=== PATIENT | female | born 1945 | race Two or more races ===

== ENCOUNTER 2019-12-26 08:26 | Inpatient (IN) | payer MEDICARE, OTHER ==
--- NOTE | 2019-12-26 09:09 | PDOC ---
History of Present Illness - General Chief Complaint: Back Pain Stated Complaint: BACK PAIN Time Seen by Provider: 12/26/19 08:57 History Source: Patient - History of Present Illness Initial Comments: 12/26/19 09:36 79 y/o female HTN, HLD TIA, nephrolithiasis here with lower back pain. Pain and tingling L4 to feet x2 weeks -worsening over the last; pain is 10/10 Evaluated @ [facility] earlier this week with imaging and discharged with PO Prednisone. Presents to our ED b/c continues to have pain. Denies any recent trauma, instrumentation, fevers/chills, bowel or bladder incontinence, chest pain, shortness of breath, abdominal pain, nausea/vomiting. Past History - Past Medical History Allergies/Adverse Reactions: Allergies Allergy/AdvReac Type Severity Reaction Status Date / Time No Known Allergies Allergy Verified 12/26/19 08:30 COPD: No HTN: Yes Hypercholesterolemia: Yes - Psycho Social/Smoking Cessation Hx Smoking History: Never smoked Have you smoked in the past 12 months: No Information on smoking cessation initiated: No Hx Alcohol Use: No Drug/Substance Use Hx: No Review of Systems - Review of Systems Constitutional: No: Chills, Fever HEENTM: No: Blurred Vision, Hearing Loss Respiratory: No: Cough, Shortness of Breath Cardiac (ROS): No: Chest Pain, Palpitations ABD/GI: No: Constipated, Diarrhea, Nausea, Vomiting : No: Burning, Dysuria *Physical Exam - Vital Signs Last Vital Signs Temp Pulse Resp BP Pulse Ox 98 F 98 H 18 156/102 H 100 12/26/19 08:31 12/26/19 08:31 12/26/19 08:31 12/26/19 08:31 12/26/19 08:31 - Physical Exam 12/26/19 10:18 Triage VS reviewed NAD MSK: L paraspinal TTP in L4-gluteal region; no midline spinal TTP, LLE w/intact sensation, normal strength, (+) patellar reflex : normal rectal tone CV: S1, S2, RRR Respiratory: CLTA B/L, no wheeze/crackles Neuro: A&O x3, CN II-XII intact ED Treatment Course - LABORATORY CBC & Chemistry Diagram: 12/26/19 11:00 12/26/19 10:03 Medical Decision Making - Medical Decision Making 12/26/19 09:39 74 y/o female with back pain that radiates down her L leg No h/o recent trauma, instrumentation/dental procedures PE significant for intact DTR's, normal strength, sensation Clinical suspicion for radiculopathy/sciatica, clinical presentation not suggestive of cauda equina, epidural abscess. Will give Tylenol, Valium. Reassess. 12/26/19 14:23 UA clean Labs unremarkable Patient reassessed @ bedside, pain improved, however continues to have difficulty ambulating - patient requires admission for MRI. 12/26/19 14:46 Case d/w Dr. Elam (admits for patient's PMD Dr. Casey Richardson). Will admit. Clinical Impression: Intractable Back Pain Discharge - Discharge Information Problems reviewed: Yes Clinical Impression/Diagnosis: Back pain Condition: Fair Disposition: HOME - Admission Yes - Follow up/Referral - Patient Discharge Instructions - Post Discharge Activity
[2019-12-26] MEDS ORDERED: diazePAM 2 MG TABLET PO ONE (10:03)
[2019-12-26] MEDS ORDERED: ACETAMINOPHEN 1000 MG/100 ML VIAL (NON FORMULARY) IVPB ONE (10:03)
[2019-12-26] MEDS ORDERED: diazePAM 2 MG TABLET ONE (10:46)
[2019-12-26] MEDS ORDERED: ACETAMINOPHEN INJECTION 100 ML IVPB ONE (10:47)
[2019-12-26 11:47] LABS: BASO % 0.9 % (0-2.0); EOS % 1.5 % (0-4.5); HEMATOCRIT 33.5 % (32.4-45.2); HEMOGLOBIN 11.2 GM/dL (10.7-15.3); LYMPH % 18.1 % (8-40); MCH 32.1 pg (25.7-33.7); MCHC 33.6 g/dl (32.0-36.0); MEAN CELL VOLUME 95.6 fl (80-96); MEAN PLT VOLUME 7.4 fl (7.5-11.1); MONO % 7.9 % (3.8-10.2); NEUT % 71.6 % (42.8-82.8); PLATELET COUNT 328 K/MM3 (134-434); RDW 14.8 % (11.6-15.6); WHITE BLOOD COUNT 9.6 K/mm3 (4.0-10.0)
[2019-12-26 12:21] LABS: ALBUMIN 3.6 g/dl (3.4-5.0); BILIRUBIN,TOTAL 0.9 mg/dL (0.2-1); BLOOD UREA NITROGEN 11.8 mg/dL (7-18); CALCIUM 9.2 mg/dL (8.5-10.1); CREATININE 0.7 mg/dL (0.55-1.3); POTASSIUM 4.1 mmol/L (3.5-5.1); TOT PROT 7.3 g/dl (6.4-8.2)
[2019-12-26] MEDS ORDERED: morphine CARPU-JECT 4 MG/1 ML DISP.SYRIN IVPUSH ONE (13:04)
[2019-12-26] MEDS ORDERED: morphine SULFATE 4 MG/ML VIAL ONE (13:26)
[2019-12-26 13:37] LABS: URINE APPEARANCE CLEAR; URINE BILIRUBIN NEGATIVE (NEGATIVE); URINE COLOR YELLOW; URINE GLUCOSE (UA) NEGATIVE (NEGATIVE); URINE KETONE NEGATIVE (NEGATIVE); URINE LEUK ESTERASE NEGATIVE (NEGATIVE); URINE NITRITE NEGATIVE (NEGATIVE); URINE PROTEIN NEGATIVE (NEGATIVE); URINE UROBILINOGEN 0.2 mg/dL (0.2-1.0)
--- NOTE | 2019-12-26 13:51 | PDOC ---
Documentation entered by Gabi Chamberlain SCRIBE, acting as scribe for Cornell Epps MD. Cornell Epps MD: This documentation has been prepared by the Cintia mark Xhesika, SCRIBE, under my direction and personally reviewed by me in its entirety. I confirm that the documentation accurately reflects all work, treatment, procedures, and medical decision making performed by me. Attending Attestation - Resident Resident Name: Dolores Tucker - ED Attending Attestation I have performed the following: I have examined & evaluated the patient, The case was reviewed & discussed with the resident, I agree w/resident's findings & plan, Exceptions are as noted - HPI HPI: 12/26/19 10:00 The patient is a 74 year old female, with a PMH of HTN, TIA x2, HLD, and nephrolithiasis who presents to the ED for 2 weeks of pain and tingling from L4 region to her feet, which worsened 4 days ago. Pt was seen at [facility] 2 days ago, had imaging and prescribed Prednisone with no relief of symptoms. The patient denies chest pain, shortness of breath, and dizziness. Denies fever , chills, cough, nausea, vomiting, and constipation. Denies dysuria, frequency, urgency and hematuria. Allergy: NKDA Social: Denies alcohol, cigarette or drug use. - Physicial Exam PE: 12/26/19 10:02 Vitals: Triage Vital signs reviewed General Appearance: no acute distress, well nourished well developed, Neck: Supple;No Nuchal rigidity Chest Wall: Nontender Cardiac: Regular rate and rhythm, no murmurs, no rubs, no gallops, Lungs: Clear to auscultation bilateral, good air movement bilaterally, Back: + reproducible L lower back pain radiating to leg. Normal strength. Normal sensation. Abdomen: Soft, nondistended, normal bowel sounds, nontender to palpation Extremities: Full range of motion to all extremities, no cyanosis, clubbing, or edema Musculoskeletal: Moderate to severe left reproducible buttock low back pain radiating down to left leg Skin: Warm and dry, no rashes or lesions, no petechiae Neuro: AOX3; Cranial Nerves 2-12 grossly c intact, Strength intact to all extremities, Sensation intact to all extremities Psych: normal mood, normal affect - Medical Decision Making 12/26/19 13:52 Multiple doses of IV medication used for radicular left-sided back discomfort radiating down back leg no weakness no numbness normal rectal tone normal neurologic examination previous imaging recently at [facility] Despite multiple rounds of IV medications patient cannot ambulate not a safe discharge home will admit to medicine for pain management and further evaluation.
--- NOTE | 2019-12-26 17:01 | CONSULT ---
Consult Consult Specialty:: Interventional spine/pain management Reason for Consultation:: Left Lumbar radiculopathy - History of Present Illness Chief Complaint: Low back and left leg pain History of Present Illness: Patient states for the past 2 weeks she has been having left low back and leg pain described as numbness tingling and burning radiating down to the toes from the low back. She has seen in the ED at both [facility] and at [facility]. At [place] she was there 2-3 times. She states that she had imaging but does not recall an MRI. She states that she was given medication. She was provided with a Medrol Dosepak however after seeing the Medrol Dosepak she had been taking it backwards starting with 1 pill and increasing the tablets. This is likely why she did not benefit from this treatment. Pain is rated 10 out of 10. Patient endorses difficulty with ambulation. She denies any bowel bladder incontinence. - History Source History Provided By: Patient - Alcohol/Substance Use Hx Alcohol Use: No - Smoking History Smoking history: Never smoked Have you smoked in the past 12 months: No Home Medications - Allergies Allergies/Adverse Reactions: Allergies Allergy/AdvReac Type Severity Reaction Status Date / Time No Known Allergies Allergy Verified 12/26/19 08:30 Review of Systems Findings/Remarks: Denies red flag sign such as bowel bladder incontinence and saddle anesthesia Physical Exam Vital Signs: Vital Signs Temperature 98.1 F 12/26/19 15:22 Pulse Rate 97 H 12/26/19 15:22 Respiratory Rate 18 12/26/19 15:22 Blood Pressure 140/90 12/26/19 15:22 O2 Sat by Pulse Oximetry (%) 98 12/26/19 15:22 Constitutional: Yes: Well Nourished, No Distress, Calm Eyes: Yes: Conjunctiva Clear HENT: Yes: Atraumatic, Normocephalic Neck: Yes: WNL Cardiovascular: Yes: Regular Rate and Rhythm Respiratory: Yes: Regular Gastrointestinal: Yes: Other (Soft) Musculoskeletal: Yes: Other (Patient lying in bed Right Strength Hip flexors: 5 Hip extensors: 5 Quadriceps: 5 Hamstrings: 5 Dorsiflexors: 5 EHL: 5 Plantar flexors: 5 Left Strength Hip flexors: 5 Hip extensors: 5 Quadriceps: 5 Hamstrings: 5 Dorsiflexors: 5 EHL: 5 Plantar flexors: 5 Right Reflex Quads: 2+ Gasroc: 2+ Left Reflex Quads: 2+ Gastroc: 2+ Right Signs SLR: Negative Left Signs SLR: postive Lumbar Right Light Touch Normal Lumbar Left Light Touch Lumbar normal) Labs: CBC, BMP 12/26/19 11:00 12/26/19 10:03 Assessment/Plan The patient's pain is likely secondary to left lumbar radiculopathy. Pain management recommendations: 1. Medrol Dosepak. 2 start gabapentin 100 mg 3 times per day. Monitor for sedation. 3. May start Tylenol 1000 mg twice daily. 4. Do not recommend narcotics for radicular pain. 5. We will follow-up with MRI on Sunday. If patient demonstrates pathology corresponding with her current symptoms she would likely benefit from a left lumbar transforaminal epidural steroid injection to be decided once imaging is reviewed. 6. If patient is a candidate for transforaminal dural steroid injection I would be performing interventional spine procedures on Sunday. If patient still in the hospital would recommend injection at that point in time or to return to the hospital as an outpatient. 7. Patient would benefit from a physical therapy evaluation. 8. Once patient is discharged she can follow-up as an outpatient at [address] she can call [phone] for an appointment with Dr. Wright.
[2019-12-26 17:34] VITALS: BMI 30.4
[2019-12-26] MEDS: LIDOCAINE 5% TOPICAL PATCH TP SCH (18:30)
[2019-12-26] MEDS: KETOROLAC TROMETHAMINE 30 MG/1 ML VIAL IVPUSH PRN (18:30)
--- NOTE | 2019-12-26 19:50 | HP ---
Admitting History and Physical - Smoking History Smoking history: Never smoked Have you smoked in the past 12 months: No If you are a former smoker, when did you quit?: 53 yrs ago - Alcohol/Substance Use Hx Alcohol Use: No Home Medications - Allergies Allergies/Adverse Reactions: Allergies Allergy/AdvReac Type Severity Reaction Status Date / Time No Known Allergies Allergy Verified 12/26/19 08:30 - Home Medications Home Medications: Ambulatory Orders Atorvastatin Ca [Lipitor] 20 mg PO HS 12/26/19 Cyclobenzaprine HCl [Flexeril -] 10 mg PO TID 12/26/19 Gabapentin [Neurontin -] 300 mg PO Q8H 12/26/19 Hydrochlorothiazide [Hctz -] 25 mg PO DAILY 12/26/19 Losartan Potassium 100 mg PO DAILY 12/26/19 Methylprednisolone [Medrol Dose [place]] 4 mg PO ASDIR 12/26/19 Naproxen 375 mg PO BID 12/26/19 Pramipexole Dihydrochloride [Mirapex -] 0.25 mg PO DAILY 12/26/19 Physical Examination Vital Signs: Vital Signs Temperature 97.9 F 12/26/19 17:29 Pulse Rate 99 H 12/26/19 17:29 Respiratory Rate 20 12/26/19 17:29 Blood Pressure 152/98 12/26/19 17:29 O2 Sat by Pulse Oximetry (%) 98 12/26/19 17:14 Labs: CBC, BMP 12/26/19 11:00 12/26/19 10:03
[2019-12-26] MEDS ORDERED: PNEUMOC 13-VAL CONJ-DIP CRM/PF 0.5 ML DISP.SYRIN IM ONE (20:00)
[2019-12-26] MEDS ORDERED: FLU VACCINE QUAD 60 MCG/0.5 ML (MDV 19-20) IM ONE (20:00)
[2019-12-26] MEDS: ATORVASTATIN CA 20 MG TABLET (FP) PO SCH (21:06)
[2019-12-26] MEDS: GABAPENTIN 300 MG CAPSULE PO SCH (21:06)
[2019-12-26] MEDS: HEPARIN NA (PORCINE) 5,000 UNITS/ML 1ML VIAL SQ SCH (21:06)
[2019-12-26] MEDS: LIDOCAINE PATCH REMOVAL MC SCH (21:09)
[2019-12-27] MEDS: GABAPENTIN 300 MG CAPSULE PO SCH ×3 (06:19→22:04)
[2019-12-27 08:15] LABS: BASO % 0.9 % (0-2.0); EOS % 5.2 % (0-4.5); HEMATOCRIT 34.1 % (32.4-45.2); HEMOGLOBIN 11.7 GM/dL (10.7-15.3); LYMPH % 25.2 % (8-40); MCH 32.9 pg (25.7-33.7); MCHC 34.2 g/dl (32.0-36.0); MEAN PLT VOLUME 7.1 fl (7.5-11.1); MONO % 9.2 % (3.8-10.2); NEUT % 59.5 % (42.8-82.8); PLATELET COUNT 336 K/MM3 (134-434); RBC 3.55 M/mm3 (3.60-5.2); RDW 15.1 % (11.6-15.6); WHITE BLOOD COUNT 6.7 K/mm3 (4.0-10.0)
[2019-12-27 09:00] LABS: ALBUMIN 3.4 g/dl (3.4-5.0); BILIRUBIN,TOTAL 0.7 mg/dL (0.2-1); BLOOD UREA NITROGEN 17.2 mg/dL (7-18); CALCIUM 9.6 mg/dL (8.5-10.1); CREATININE 0.8 mg/dL (0.55-1.3); POTASSIUM 3.9 mmol/L (3.5-5.1); TOT PROT 6.7 g/dl (6.4-8.2)
[2019-12-27] MEDS: KETOROLAC TROMETHAMINE 30 MG/1 ML VIAL IVPUSH PRN ×2 (09:03→15:49)
[2019-12-27] MEDS ORDERED: PT OWN MED DRAWER 7, Y5N ONE (13:09)
[2019-12-27] MEDS: HYDROCHLOROTHIAZIDE 25 MG TABLET (FP) PO SCH (13:15)
[2019-12-27] MEDS: HEPARIN NA (PORCINE) 5,000 UNITS/ML 1ML VIAL SQ SCH ×2 (13:15→22:04)
[2019-12-27] MEDS: LOSARTAN POTASSIUM 50 MG TABLET (FP) PO SCH (13:15)
[2019-12-27] MEDS: LIDOCAINE 5% TOPICAL PATCH TP SCH (13:15)
[2019-12-27] MEDS: PRAMIPEXOLE DIHYDROCHLORIDE 0.25 MG TABLET PO SCH (13:16)
[2019-12-27] MEDS ORDERED: oxyCODONE HCL 5 MG TABLET PO ONE (14:15)
--- NOTE | 2019-12-27 17:11 | PN ---
Progress Note, Physician History of Present Illness: DOING WELL - Current Medication List Current Medications: Active Medications Atorvastatin Calcium (Lipitor -) 20 mg PO HS [facility] Last Admin: 12/26/19 21:06 Dose: 20 mg Gabapentin (Neurontin -) 300 mg PO TID [facility] Last Admin: 12/27/19 13:15 Dose: 300 mg Heparin Sodium (Porcine) (Heparin -) 5,000 unit SQ BID [facility] Last Admin: 12/27/19 13:15 Dose: 5,000 unit Hydrochlorothiazide (Hctz -) 25 mg PO DAILY [facility] Last Admin: 12/27/19 13:15 Dose: 25 mg Ketorolac Tromethamine (Toradol Injection -) 30 mg IVPUSH Q6H PRN PRN Reason: PAIN LEVEL 6-10 Stop: 12/31/19 14:35 Last Admin: 12/27/19 15:49 Dose: 30 mg Lidocaine (Lidoderm Patch -) 1 patch TP DAILY [facility] Last Admin: 12/27/19 13:15 Dose: 1 patch Losartan Potassium (Cozaar -) 100 mg PO DAILY [facility] Last Admin: 12/27/19 13:15 Dose: 100 mg Miscellaneous (Lidoderm Patch Removal) 1 each MC DAILY@2200 [facility] Last Admin: 12/26/19 21:09 Dose: Not Given Pramipexole Dihydrochloride (Mirapex -) 0.25 mg PO DAILY [facility] Last Admin: 12/27/19 13:16 Dose: 0.25 mg - Objective Vital Signs: Vital Signs Temperature 97.8 F 12/27/19 13:00 Pulse Rate 100 H 12/27/19 13:00 Respiratory Rate 18 12/27/19 13:00 Blood Pressure 104/58 L 12/27/19 13:00 O2 Sat by Pulse Oximetry (%) 98 12/26/19 20:42 Constitutional: Yes: No Distress HENT: Yes: Atraumatic Neck: Yes: Supple Cardiovascular: Yes: Regular Rate and Rhythm Respiratory: Yes: CTA Bilaterally Gastrointestinal: Yes: Normal Bowel Sounds Extremities: Yes: WNL Edema: No Neurological: Yes: Alert, Oriented Labs: CBC, BMP 12/27/19 07:40 12/27/19 07:40 Problem List - Problems (1) Back pain Assessment/Plan: will start her on morphine current pain meds doesnt work dc toradol Code(s): M54.9 - DORSALGIA, UNSPECIFIED (2) HTN (hypertension) Assessment/Plan: ON MEDS MONITOR Code(s): I10 - ESSENTIAL (PRIMARY) HYPERTENSION (3) HLD (hyperlipidemia) Code(s): E78.5 - HYPERLIPIDEMIA, UNSPECIFIED Assessment/Plan COVERING FOR DR LAUREN
[2019-12-27] MEDS: MORPHINE SULFATE 2 MG/ML VIAL IVPUSH PRN (19:37)
[2019-12-27] MEDS: ATORVASTATIN CA 20 MG TABLET (FP) PO SCH (22:04)
[2019-12-27] MEDS: LIDOCAINE PATCH REMOVAL MC SCH (22:04)
[2019-12-28] MEDS: MORPHINE SULFATE 2 MG/ML VIAL IVPUSH PRN ×3 (01:28→17:34)
[2019-12-28] MEDS ORDERED: SODIUM CHLORIDE 250 ML IV ONE (03:15)
[2019-12-28] MEDS: DEXTROSE 5%-0.45% SALINE 1,000 ML IV SCH ×2 (03:16→17:37)
[2019-12-28] MEDS: GABAPENTIN 300 MG CAPSULE PO SCH ×3 (06:25→21:04)
[2019-12-28] MEDS ORDERED: PT OWN MED DRAWER 7, Y5N ONE (09:26)
--- NOTE | 2019-12-28 09:56 | CON.NEURO ---
Consult Consult Specialty:: Neurology Referred by:: LBP - History of Present Illness Chief Complaint: LBP History of Present Illness: 74 Y/O F , p/w LBP and L LE pain for the past 7 days ; she states that woke up w LBP , does not recall any triggering factors such as lifting heavy objects ; trauma etc; she describes a sharp pain from her L lower back which travels down ; no rectal numbness, no B/B incontinence ; feels numb distal L knee . - History Source History Provided By: Patient Limitations to Obtaining History: No Limitations - Alcohol/Substance Use Hx Alcohol Use: No - Smoking History Smoking history: Never smoked Have you smoked in the past 12 months: No If you are a former smoker, when did you quit?: 53 yrs ago Home Medications - Allergies Allergies/Adverse Reactions: Allergies Allergy/AdvReac Type Severity Reaction Status Date / Time No Known Allergies Allergy Verified 12/26/19 08:30 - Home Medications Home Medications: Ambulatory Orders Atorvastatin Ca [Lipitor] 20 mg PO HS 12/26/19 Cyclobenzaprine HCl [Flexeril -] 10 mg PO TID 12/26/19 Gabapentin [Neurontin -] 300 mg PO Q8H 12/26/19 Hydrochlorothiazide [Hctz -] 25 mg PO DAILY 12/26/19 Losartan Potassium 100 mg PO DAILY 12/26/19 Methylprednisolone [Medrol Dose [place]] 4 mg PO ASDIR 12/26/19 Naproxen 375 mg PO BID 12/26/19 Pramipexole Dihydrochloride [Mirapex -] 0.25 mg PO DAILY 12/26/19 Review of Systems - Review of Systems Constitutional: reports: No Symptoms Eyes: reports: No Symptoms HENT: reports: No Symptoms Neck: reports: No Symptoms Cardiovascular: reports: No Symptoms Respiratory: reports: No Symptoms Gastrointestinal: reports: No Symptoms Genitourinary: reports: No Symptoms Endocrine: reports: No Symptoms Hematology/Lymphatic: reports: No Symptoms Psychiatric: reports: No Symptoms Physical Exam-Neuro Vital Signs: Vital Signs Temperature 97.7 F 12/28/19 05:00 Pulse Rate 83 12/28/19 05:00 Respiratory Rate 18 12/28/19 05:00 Blood Pressure 95/55 L 12/28/19 05:00 O2 Sat by Pulse Oximetry (%) 94 L 12/27/19 21:00 Constitutional: Yes: Well Nourished Neck: Yes: WNL Cardiovascular: Yes: Regular Rate and Rhythm Respiratory: Yes: Regular, CTA Bilaterally Musculoskeletal: Yes: Back Pain, Other (SLR positive at L side ) Edema: No Labs: CBC, BMP 12/27/19 07:40 12/27/19 07:40 - Neuro Exam Level Of Consciousness: Yes: Alert, Oriented to Person, Oriented to Place, Oriented to Time Eyes: Yes: PERRLA Speech: WNL Cranial Nerves II-XII Intact: Yes Gag: Present DTR's: 1+ Left Achilles (Absence L KJ ), 2+ Left Bicep, 2+ Right Bicep, 2+ Left Tricep, 2+ Right Tricep, 2+ Left Brachioradialis, 2+ Right Brachioradialis, 2+ Right Achilles Response to pain prick: Abnormal (l l4/l5 distribution ) Coordination: Normal: Finger to Nose Motor Strength: 3/5: Left Leg, 5/5: Left Arm, Right Arm, Right Leg Gait: Deferred Imaging - Results MRI: Image Reviewed (Pending MRI-LS report) Problem List - Problems (1) Lumbosacral radiculopathy at L4 Code(s): M54.17 - RADICULOPATHY, LUMBOSACRAL REGION (2) Lumbosacral radiculopathy at L5 Code(s): M54.17 - RADICULOPATHY, LUMBOSACRAL REGION (3) Back pain Code(s): M54.9 - DORSALGIA, UNSPECIFIED Assessment/Plan 74 y/o F , p/w L lower back pain w radiation to her L LE and numbness distal L knee ; on exam L L4/L5 dermatome sensory loss ; absent L KJ and diminished L AJ , +sisi L SLR suggestive of L L4/L5 LS-radiculopathy vs sciatica , ; no sign or sym suggestive of cauda equina syndrome, no bowel or bladder incontinence .MRI -LS report pending. I suggest: Tramadol as needed for pain c/w steroid Increase gabapentin 300 mg qid c/w flexeril Neuro sx consultation EMG as OP Fall precautions PT/OT Health maintenance per primary team. Thank you. Karri Nichols MD [phone]
[2019-12-28] MEDS: PRAMIPEXOLE DIHYDROCHLORIDE 0.25 MG TABLET PO SCH (10:47)
[2019-12-28] MEDS: LIDOCAINE 5% TOPICAL PATCH TP SCH (10:47)
[2019-12-28] MEDS: HEPARIN NA (PORCINE) 5,000 UNITS/ML 1ML VIAL SQ SCH ×2 (10:53→21:04)
[2019-12-28] MEDS: ATORVASTATIN CA 20 MG TABLET (FP) PO SCH (21:04)
[2019-12-28] MEDS: LIDOCAINE PATCH REMOVAL MC SCH (21:04)
--- NOTE | 2019-12-28 22:23 | PN ---
Progress Note, Physician History of Present Illness: Pt still complains of lower back pain w/ tingling down RLE - Current Medication List Current Medications: Active Medications Atorvastatin Calcium (Lipitor -) 20 mg PO HS [facility] Last Admin: 12/28/19 21:04 Dose: 20 mg Gabapentin (Neurontin -) 300 mg PO TID [facility] Last Admin: 12/28/19 21:04 Dose: 300 mg Heparin Sodium (Porcine) (Heparin -) 5,000 unit SQ BID [facility] Last Admin: 12/28/19 21:04 Dose: 5,000 unit Hydrochlorothiazide (Hctz -) 25 mg PO DAILY [facility] Last Admin: 12/27/19 13:15 Dose: 25 mg Dextrose/Sodium Chloride (D5-1/2ns -) 1,000 mls @ 75 mls/hr IV ASDIR [facility] Last Admin: 12/28/19 17:37 Dose: 75 mls/hr Lidocaine (Lidoderm Patch -) 1 patch TP DAILY [facility] Last Admin: 12/28/19 10:47 Dose: 1 patch Losartan Potassium (Cozaar -) 100 mg PO DAILY [facility] Last Admin: 12/27/19 13:15 Dose: 100 mg Miscellaneous (Lidoderm Patch Removal) 1 each MC DAILY@2200 [facility] Last Admin: 12/28/19 21:04 Dose: Not Given Morphine Sulfate (Morphine Sulfate) 2 mg IVPUSH Q4H PRN PRN Reason: PAIN LEVEL 6-10 Last Admin: 12/28/19 17:34 Dose: 2 mg Pramipexole Dihydrochloride (Mirapex -) 0.25 mg PO DAILY [facility] Last Admin: 12/28/19 10:47 Dose: 0.25 mg - Objective Vital Signs: Vital Signs Temperature 98.3 F 12/28/19 19:27 Pulse Rate 90 12/28/19 19:27 Respiratory Rate 20 12/28/19 21:00 Blood Pressure 118/69 12/28/19 19:27 O2 Sat by Pulse Oximetry (%) 96 12/28/19 21:00 Neck: Yes: WNL, Supple Cardiovascular: Yes: WNL, Regular Rate and Rhythm Respiratory: Yes: WNL, Regular, CTA Bilaterally Gastrointestinal: Yes: WNL, Normal Bowel Sounds, Soft, Abdomen, Obese Extremities: Yes: WNL Labs: CBC, BMP 12/27/19 07:40 12/27/19 07:40 Problem List - Problems (1) Intractable back pain Assessment/Plan: MRI shows disc bulging w/ S1 nerve root involvement Neuro consult noted Pain management pending NSG consult Increase gabapentin Cont flexeril/lidoderm patch Add tramadol PT eval Code(s): M54.9 - DORSALGIA, UNSPECIFIED (2) HTN (hypertension) Assessment/Plan: Losartan/Hctz on hold due to hypotension Will restart meds Code(s): I10 - ESSENTIAL (PRIMARY) HYPERTENSION (3) HLD (hyperlipidemia) Assessment/Plan: Cont lipitor Code(s): E78.5 - HYPERLIPIDEMIA, UNSPECIFIED
[2019-12-29] MEDS: traMADol HCL 50 MG TABLET PO PRN ×2 (06:03→15:54)
[2019-12-29 07:10] LABS: EOS % 8.7 % (0-4.5); HEMATOCRIT 33.4 % (32.4-45.2); HEMOGLOBIN 11.2 GM/dL (10.7-15.3); LYMPH % 27.5 % (8-40); MCH 32.6 pg (25.7-33.7); MCHC 33.5 g/dl (32.0-36.0); MEAN CELL VOLUME 97.3 fl (80-96); MEAN PLT VOLUME 7.3 fl (7.5-11.1); MONO % 8.8 % (3.8-10.2); PLATELET COUNT 326 K/MM3 (134-434); RBC 3.43 M/mm3 (3.60-5.2); RDW 14.6 % (11.6-15.6); WHITE BLOOD COUNT 6.4 K/mm3 (4.0-10.0)
[2019-12-29 07:46] LABS: ALBUMIN 2.9 g/dl (3.4-5.0); BILIRUBIN,TOTAL 0.6 mg/dL (0.2-1); BLOOD UREA NITROGEN 17.7 mg/dL (7-18); CALCIUM 8.5 mg/dL (8.5-10.1); CREATININE 0.8 mg/dL (0.55-1.3); POTASSIUM 3.8 mmol/L (3.5-5.1); TOT PROT 6.2 g/dl (6.4-8.2)
[2019-12-29] MEDS ORDERED: PT OWN MED DRAWER 7, Y5N ONE ×3 (09:05→20:28)
[2019-12-29] MEDS: LIDOCAINE 5% TOPICAL PATCH TP SCH (09:09)
[2019-12-29] MEDS: HEPARIN NA (PORCINE) 5,000 UNITS/ML 1ML VIAL SQ SCH ×2 (09:09→21:04)
[2019-12-29] MEDS: GABAPENTIN 300 MG CAPSULE PO SCH ×4 (09:09→21:05)
[2019-12-29] MEDS: NAPROXEN 500 MG TABLET PO SCH ×2 (09:10→21:45)
[2019-12-29] MEDS: PRAMIPEXOLE DIHYDROCHLORIDE 0.25 MG TABLET PO SCH (10:52)
[2019-12-29] MEDS: LOSARTAN POTASSIUM 50 MG TABLET (FP) PO SCH (10:52)
[2019-12-29] MEDS: HYDROCHLOROTHIAZIDE 25 MG TABLET (FP) PO SCH (10:52)
--- NOTE | 2019-12-29 19:22 | PN ---
Progress Note, Physician - Current Medication List Current Medications: Active Medications Atorvastatin Calcium (Lipitor -) 20 mg PO HS [facility] Last Admin: 12/28/19 21:04 Dose: 20 mg Gabapentin (Neurontin -) 300 mg PO QID [facility] Last Admin: 12/29/19 17:53 Dose: 300 mg Heparin Sodium (Porcine) (Heparin -) 5,000 unit SQ BID [facility] Last Admin: 12/29/19 09:09 Dose: 5,000 unit Hydrochlorothiazide (Hctz -) 25 mg PO DAILY [facility] Last Admin: 12/29/19 10:52 Dose: 25 mg Lidocaine (Lidoderm Patch -) 1 patch TP DAILY [facility] Last Admin: 12/29/19 09:09 Dose: 1 patch Losartan Potassium (Cozaar -) 100 mg PO DAILY [facility] Last Admin: 12/29/19 10:52 Dose: 100 mg Miscellaneous (Lidoderm Patch Removal) 1 each MC DAILY@2200 [facility] Last Admin: 12/28/19 21:04 Dose: Not Given Naproxen (Naprosyn -) 500 mg PO BID [facility] Last Admin: 12/29/19 09:10 Dose: 500 mg Pramipexole Dihydrochloride (Mirapex -) 0.25 mg PO DAILY [facility] Last Admin: 12/29/19 10:52 Dose: 0.25 mg Tramadol HCl (Ultram -) 50 mg PO Q6H PRN PRN Reason: PAIN LEVEL 6-10 Last Admin: 12/29/19 15:54 Dose: 50 mg - Objective Vital Signs: Vital Signs Temperature 97.7 F 12/29/19 17:54 Pulse Rate 86 12/29/19 17:54 Respiratory Rate 20 12/29/19 17:54 Blood Pressure 143/75 12/29/19 17:54 O2 Sat by Pulse Oximetry (%) 96 12/29/19 09:00 Labs: CBC, BMP 12/29/19 05:53 12/29/19 05:53 Problem List - Problems (1) Intractable back pain Code(s): M54.9 - DORSALGIA, UNSPECIFIED (2) HTN (hypertension) Code(s): I10 - ESSENTIAL (PRIMARY) HYPERTENSION (3) HLD (hyperlipidemia) Code(s): E78.5 - HYPERLIPIDEMIA, UNSPECIFIED
[2019-12-29] MEDS: ATORVASTATIN CA 20 MG TABLET (FP) PO SCH (21:05)
[2019-12-29] MEDS: LIDOCAINE PATCH REMOVAL MC SCH (21:05)
[2019-12-29] MEDS ORDERED: MAGNESIUM CITRATE 300 ML BOTTLE PO ONE (22:15)
[2019-12-30] MEDS: traMADol HCL 50 MG TABLET PO PRN (07:56)
[2019-12-30] MEDS: HEPARIN NA (PORCINE) 5,000 UNITS/ML 1ML VIAL SQ SCH (09:52)
[2019-12-30] MEDS: GABAPENTIN 300 MG CAPSULE PO SCH ×2 (09:54→13:05)
[2019-12-30] MEDS: PRAMIPEXOLE DIHYDROCHLORIDE 0.25 MG TABLET PO SCH (09:55)
[2019-12-30] MEDS: NAPROXEN 500 MG TABLET PO SCH (09:55)
[2019-12-30] MEDS: LIDOCAINE 5% TOPICAL PATCH TP SCH (09:55)
[2019-12-30] MEDS: LOSARTAN POTASSIUM 50 MG TABLET (FP) PO SCH (09:56)
[2019-12-30] MEDS: HYDROCHLOROTHIAZIDE 25 MG TABLET (FP) PO SCH (09:56)
[2019-12-30 14:55] VITALS: BP 122/54; PULSE 92; TEMP 98.6
== END 2019-12-30 15:02 | disposition home or self-care (01) | DRG 552 ==
LOC: JER 08:26 → JERBED 13:22 → J8W 15:39
PROVIDERS: ADMIT Internal Medicine; ATTEND Internal Medicine
DX: M54.17 Radiculopathy, lumbosacral region (principal); I10 Essential (primary) hypertension; E78.5 Hyperlipidemia, unspecified; M54.9 Dorsalgia, unspecified; Z86.73 Personal history of transient ischemic attack (TIA), and cerebral infarction without residual deficits
CPT/HCPCS: 36415; 72148-TC; 80053; 81003; 85025; 97116-GP; 97161-GP; 99285-25; J0131; J1644

== ENCOUNTER 2020-07-23 05:27 | Day surgery (SDC) | payer OTHER ==
[2020-07-22 14:46] VITALS: BMI 33.5
--- OUTSIDE RECORDS SUMMARY | 2020-07-23 05:43 | XMS ---
:1945 Author Organization [facility] Care Team Providers Name Role Phone Ringstad, Laura Unavailable Unavailable Ringstad, Laura Unavailable Unavailable Ringstad, Laura Unavailable Unavailable Ringstad, Laura Unavailable Unavailable Ringstad, Laura Unavailable Unavailable Ringstad, Laura Unavailable Unavailable Ringstad, Laura Unavailable Unavailable Ringstad, Laura Unavailable Unavailable Ringstad, Laura Unavailable Unavailable Ringstad, Laura Unavailable Unavailable Ringstad, Laura Unavailable Unavailable ED STAFF PHYSICIANSOFIA Unavailable Unavailable Ringstad, Laura Unavailable Unavailable Ringstad, Laura Unavailable Unavailable Ringstad, Laura Unavailable Unavailable Ringstad, Laura Unavailable Unavailable Ringstad, Laura Unavailable Unavailable Ringstad, Laura Unavailable Unavailable Ringstad, Laura Unavailable Unavailable Ringstad, Laura Unavailable Unavailable Ringstad, Laura Unavailable Unavailable Ringstad, Laura Unavailable Unavailable Ringstad, Laura Unavailable Unavailable Darkey, Bailee Unavailable Unavailable Darkey, Bailee Unavailable Unavailable Darkey, Bailee Unavailable Unavailable Darkey, Bailee Unavailable Unavailable Abraham, Eric Unavailable [phone] Abraham, Eric Unavailable [phone] Coloka-Kump, Rodika DO Unavailable Unavailable Coloka-Kump, Rodika DO Unavailable Unavailable Coloka-Kump, Rodika DO Unavailable Unavailable Coloka-Kump, Rodika DO Unavailable Unavailable Coloka-Kump, Rodika DO Unavailable Unavailable Coloka-Kump, Rodika DO Unavailable Unavailable Coloka-Kump, Rodika DO Unavailable Unavailable Coloka-Kump, Rodika DO Unavailable Unavailable Coloka-Kump, Rodika DO Unavailable Unavailable Coloka-Kump, Rodika DO Unavailable Unavailable Coloka-Kump, Rodika DO Unavailable Unavailable Coloka-Kump, Rodika DO Unavailable Unavailable Coloka-Kump, Rodika DO Unavailable Unavailable Coloka-Kump, Rodika DO Unavailable Unavailable Coloka-Kump, Rodika DO Unavailable Unavailable Coloka-Kump, Rodika DO Unavailable Unavailable Coloka-Kump, Rodika DO Unavailable Unavailable MAYA MILEY, MILEY Unavailable Unavailable Esperanza Coates MD Unavailable Unavailable Rosamaria Coates MD Unavailable Unavailable Rosamaria Coates MD Unavailable Unavailable Rosamaria Coates MD Unavailable Unavailable Rosamaria Coates MD Unavailable Unavailable Rosamaria Coates MD Unavailable Unavailable Rosamaria Coates MD Unavailable Unavailable Rosamaria Coates MD Unavailable Unavailable Rosamaria Coates MD Unavailable Unavailable Rosamaria Coates MD Unavailable Unavailable Rosamaria Coates MD Unavailable Unavailable Rosamaria Coates MD Unavailable Unavailable Rosamaria Coates MD Unavailable Unavailable Rosamaria Coates MD Unavailable Unavailable Rosamaria Coates MD Unavailable Unavailable Jhonny Unavailable [phone] Jhonny Unavailable [phone] [place] Unavailable [phone] Senior Unavailable [phone] Senior Unavailable [phone] Neal Unavailable [phone] Squires, C Unavailable Unavailable Squires, C Unavailable Unavailable Squires, C Unavailable Unavailable Squires, C Unavailable Unavailable Squires, C Unavailable Unavailable Squires, C Unavailable Unavailable Squires, C Unavailable Unavailable Squires, C Unavailable Unavailable Squires, C Unavailable Unavailable Erosa Unavailable Erosa Unavailable ED STAFF PHYSICIAN Unavailable Unavailable DARKEY BAILEE Unavailable Unavailable ED STAFF PHYSICIAN Unavailable Unavailable Coloka-Kump, DO Unavailable Unavailable Coloka-Kump, DO Unavailable Unavailable Coloka-Kump, DO Unavailable Unavailable Coloka-Kump, DO Unavailable Unavailable Coloka-Kump, DO Unavailable Unavailable Coloka-Kump, DO Unavailable Unavailable Coloka-Kump, DO Unavailable Unavailable Coloka-Kump, DO Unavailable Unavailable Coloka-Kump, DO Unavailable Unavailable Coloka-Kump, DO Unavailable Unavailable Coloka-Kump, DO Unavailable Unavailable Coloka-Kump, DO Unavailable Unavailable Coloka-Kump, DO Unavailable Unavailable Coloka-Kump, DO Unavailable Unavailable Coloka-Kump, DO Unavailable Unavailable Coloka-Kump, DO Unavailable Unavailable Coloka-Kump, DO Unavailable Unavailable MD Michael Unavailable Unavailable MD Michael Unavailable Unavailable MD Michael Unavailable Unavailable MD Michael Unavailable Unavailable MD Michael Unavailable Unavailable NICOLA PEREZ Unavailable Unavailable Tao Unavailable Unavailable Tao Unavailable Unavailable Tao Unavailable Unavailable Tao Unavailable Unavailable Tao Unavailable Unavailable Tao Unavailable Unavailable Tao Unavailable Unavailable Tao Unavailable Unavailable Tao Unavailable Unavailable Tao Unavailable Unavailable Tao Unavailable Unavailable Tao Unavailable Unavailable Tao Unavailable Unavailable Tao Unavailable Unavailable Tao Unavailable Unavailable Tao Unavailable Unavailable Tao Unavailable Unavailable Tao Unavailable Unavailable Tao Unavailable Unavailable Tao Unavailable Unavailable Aszalos, Zenia Unavailable Unavailable Aszalos, Zenia Unavailable Unavailable Aszalos, Zenia Unavailable Unavailable Aszalos, Zenia Unavailable Unavailable Aszalos, Zenia Unavailable Unavailable Aszalos, Zenia Unavailable Unavailable Aszalos, Zenia Unavailable Unavailable Aszalos, Zenia Unavailable Unavailable Aszalos, Zenia Unavailable Unavailable Andres Unavailable [phone] Andres Unavailable [phone] Andres Unavailable [phone] Andres Unavailable [phone] Andres Unavailable [phone] KARRIE RAYMUNDO Unavailable Unavailable Tj COLBY MD Unavailable [phone] Tj COLBY MD Unavailable [phone] ANDRES NAYEL Unavailable Unavailable Posey-Lanza Unavailable Unavailable Posey-Lanza Unavailable Unavailable Safo-Alfie Unavailable [phone] Safo-Alfie Unavailable [phone] Re-disclosure Warning The records that you are about to access may contain information from federally- assisted alcohol or drug abuse programs. If such information is present, then the following federally mandated warning applies: This information has been disclosed to you from records protected by federal confidentiality rules (42 CFR part 2). The federal rules prohibit you from making any further disclosure of this information unless further disclosure is expressly permitted by the written consent of the person to whom it pertains or as otherwise permitted by 42 CFR part 2. A general authorization for the release of medical or other information is NOT sufficient for this purpose. The Federal rules restrict any use of the information to criminally investigate or prosecute any alcohol or drug abuse patient.The records that you are about to access may contain highly sensitive health information, the redisclosure of which is protected by Article 27-F of the [place] Public Health law. If you continue you may haveaccess to information: Regarding HIV / AIDS; Provided by facilities licensed or operated by the [facility] [employer] Office of Mental Health; or Provided by the [facility] [employer] Office for People With Developmental Disabilities. If such information is present, then the following [employer] mandated warning applies: This information has been disclosed to you from confidential records which are protected by state law. State law prohibits you from making any further disclosure of this information without the specific written consent of the person to whom it pertains, or as otherwise permitted by law. Any unauthorized further disclosure in violation of state law may result in a fine or detention sentence or both. A general authorization for the release of medical or other information is NOT sufficient authorization for further disclosure. Advance Directives Directive Description Welder Plasma Arc Superintendent Nonselling Status Observation Data Description Source(s ) Other completed NEXTGEN Directive ([facility]) IV Fluid and completed NEXTGEN Support ([facility]) Intubation completed NEXTGEN ([facility]) Life Support completed NEXTGEN ([facility]) CPR Attempt completed NEXTGEN Resuscitation/C ([facility]) Other completed NEXTGEN Directive ([facility]) IV Fluid and completed NEXTGEN Support ([facility]) Intubation completed NEXTGEN ([facility]) Life Support completed NEXTGEN ([facility]) CPR Attempt completed NEXTGEN Resuscitation/C ([facility]) Allergies and Adverse Reactions Type Description Substance Reaction Status Data Source(s ) Propensity to Propensity to Propensity to NEXTG EN ([facility] adverse reactions adverse reactions adverse reactions [facility] (disorder) (disorder) (disorder) Center) No Known Allergies No Known Allergies No Known eCW1 ([facility] Allerg[facility]) No Known Allergies No Known Allergies No Known eCW1 ([facility]) No Known Allergies No Known Allergies No Known eCW1 ([facility]) Family History Family Member Family Member Family Member Date of Description Data Source(s) Name Gender Status Status Unknown Female Problem 02/25/2018 NEXTGEN ([facility] ([facility]) 12:00:00 AM [facility] EDT Center) Encounters Encounter Providers Location Date Indications Data Source(s ) Attender: Jese 07/13/2020 MEDGEN ([facility] 12:00:00 AM EDT Medical, PC) Office Outpatient 06/30/2020 [facility] 01:59:00 PM EDT Medical C enter Outpatient 06/30/2020 [facility] 12:00:00 AM EDT Medical C enter [facility] 06/29/2020 NEXTGEN ([facility] 10:04:00 AM EDT [facility] 06/29/2020 [place]) 10:04:00 AM EDT Attender: [facility] 06/23/2020 NEXT GEN ([facility] 03:21:00 PM EDT - [facility] 06/23/2020 [place]) 03:21:00 PM EDT Attender: [facility] 06/21/2020 NEXT GEN ([facility] 02:55:00 PM EDT - [facility] 06/21/2020 [place]) 02:55:00 PM EDT Attender: [facility] 06/07/2020 NEXT GEN ([facility] 12:58:00 PM EDT - [facility] 06/07/2020 [place]) 12:58:00 PM EDT Attender: [facility] 06/01/2020 NEXTGE N ([facility] 11:34:00 AM EDT [facility] 06/01/2020 [place]) 11:34:00 AM EDT Attender: [facility] 05/26/2020 NEXT GEN ([facility] 03:33:00 PM EDT - [facility] 05/26/2020 [place]) 03:33:00 PM EDT Outpatient Attender: Gaby Oleary 05/24/2020 [facility] VelezAdmitter: 01:06:00 PM EDT Medic al Center Gaby TaoReferrer: Gaby Tao OutpatientOFFICE/O Attender: Ilana [facility] 05/24/2020 NEXTGEN ([facility] 01:06:00 PM EDT - [facility] 05/24/2020 [place]) 01:06:00 PM EDT Outpatient 05/24/2020 [facility] 10:00:00 AM EDT Medical C enter Attender: Esperanza [facility] 05/24/2020 NEXTGE N ([facility] 09:47:00 AM EDT [facility] 05/24/2020 [place]) 09:47:00 AM EDT Outpatient 05/24/2020 [facility] 12:00:00 AM EDT Medical C [facility] N ([facility] 02:57:00 PM EDT [facility] 05/13/2020 [place]) 02:57:00 PM EDT (TEL) [address] 05/03/2020 eCW1 ([facility] 12:00:00 AM EDT [facility]) Outpatient Attender: Gaby Oleary 04/28/2020 [facility] AislinnAdmitter: 11:42:00 AM EDT - [facility] Gaby 04/28/2020 VelezReferrer: 01:35:00 PM EDT Gaby Tao Attender: Gaby [facility]/28/2020 [facility] 11:42:00 AM EDT [facility] 04/28/2020 [place]) 11:42:00 AM EDT (TEL) [address] 04/27/2020 eCW1 ([facility] 12:00:00 AM EDT [facility]) Outpatient Attender: TITUS Oleary 04/26/2020 [facility] 03:14:00 PM EDT Medical [place] ZACKARYAdmitter: TITUS RAYMUNDOReferrer: TITUS RAYMUNDO Attender: Zeke 04/26/2020 NEXTGEN ( [facility] De Jesus 03:14:00 PM EDT [facility] 04/26/2020 Center) 03:14:00 PM EDT Outpatient [address] 04/26/2020 eCW1 ([facility] 12:00:00 AM EDT [facility]) Outpatient 04/20/2020 [facility] 02:32:00 PM EDT Medical C enter Outpatient Attender: Gaby Oleary 04/20/2020 [facility] VelezAdmitter: 02:21:00 PM EDT Medic al Center Gaby TaoReferrer: Gaby Tao OutpatientOFFICE/O Attender: Louis [facility] 04/20/2020 NEXTGEN ([facility] VISIT, [facility] 02:21:00 PM EDT [facility] 04/20/2020 [place]) 02:21:00 PM EDT Outpatient 04/20/2020 [facility] 12:00:00 AM EDT Medical C enter Attender: Guerline [facility] 04/19/2020 NEXTGEN ([facility] 10:12:00 AM EDT [facility] 04/19/2020 [place]) 10:12:00 AM EDT Attender: [facility] 04/16/2020 NEXTGEN ( [facility] Spencer [facility] [place] 02:03:00 PM EDT - [facility] 04/16/2020 [place]) 02:03:00 PM EDT Attender: William [facility] 03/31/2020 NEXTG EN ([facility] 11:14:00 AM EDT [facility] 03/31/2020 Center) 11:14:00 AM EDT Attender: Eric [facility] 03/24/2020 NEXTG EN ([facility] 11:39:00 AM EDT [facility] 03/24/2020 Center) 11:39:00 AM EDT Attender: [facility] 03/23/2020 NEXTGEN ([facility] ch[facility] Ovalles [place] 04:02:00 PM EDT [facility] 03/23/2020 [place]) 04:02:00 PM EDT Attender: [facility] 03/18/2020 NEXTGE N ([facility] James De Jesus [place] 04:16:00 PM EDT [facility] 03/18/2020 [place]) 04:16:00 PM EDT Outpatient Attender: Gaby Oleary 03/10/2020 [facility] VelezAdmitter: 10:58:00 AM EDT Medic al Center Gaby TaoReferrer: Gaby Tao OutpatientOFFICE/O Attender: Eric [facility] 03/10/2020 NEXTGEN ([facility] 10:58:00 AM EDT - [facility] 03/10/2020 Center) 10:58:00 AM EDT 03/10/2020 [facility] 12:00:00 AM EDT - Medical Center 03/08/2017 12:00:00 AM EDT Attender: [facility] 03/04/2020 NEXTG EN ([facility] 09:51:00 AM EDT [facility] 03/04/2020 [place]) 09:51:00 AM ED[facility] 03/02/2020 NEXTG EN ([facility] 02:56:00 PM EDT - [facility] 03/02/2020 [place]) 02:56:00 PM EDT Attender: [facility] 02/26/2020 NEXT EN ([facility] 01:21:00 PM EDT [facility] 02/26/2020 [place]) 01:21:00 PM EDT Attender: [facility] 02/25/2020 [facility] (Sa chaz Ovalles [place] 04:41:00 PM EDT [facility] 02/25/2020 [place]) 04:41:00 PM EDT Outpatient Attender: H 02/13/2020 [facility] Laura 01:35:00 PM EDT Medical C enter RingstadAdmitter: Laura Sandraerrer: Laura Ovalles Att[facility]: [facility] 02/13/2020 NEXT N ([facility] 01:35:00 PM EDT [facility] 02/13/2020 [place]) 01:35:00 PM EDT Outpatient 02/13/2020 [facility] 10:30:00 AM EDT Medical C enter Outpatient 02/13/2020 [facility] 10:28:00 AM EDT Medical C enter [facility] 02/13[facility] NEXT N ([facility] 09:46:00 AM EDT [facility] 02/13/2020 [place]) 09:46:00 AM EDT Outpatient 02/13/2020 [facility] 12:00:00 AM EDT - Medical Center 03/08/2017 12:00:00 AM EDT Outpatient 02/09/2020 [facility] 02:58:00 PM EDT Medical C enter Outpatient 02/09/2020 [facility] 02:49:00 PM EDT Medical C enter Attender: Dinah [facility] 02/09/2020 NEXTG EN ([facility] 10:57:00 AM EDT [facility] 02/09/2020 Center) 10:57:00 AM EDT Outpatient 02/09/2020 [facility] 12:00:00 AM EDT Medical C enter [facility] 10:14:00 AM EDT [facility] 02/05/2020 [place]) 10:14:00 AM EDT Outpatient 02/02/2020 [facility] 03:41:00 PM EDT Medical C enter Outpatient 02/02/2020 [facility] 12:00:00 AM EDT Medical C enter Attender: [facility] 01/29/2020 NEXTGE N ([facility] 04:36:00 PM EDT [facility] 01/29/2020 [place]) 04:36:00 PM EDT Emergency Attender: SOFIA Oleary 01/29/2020 [facility] ED STAFF 08:55:00 AM EDT - [facility] Center PHYSICIANAttender 01/29/2020 : STAFF ED STAFF 02:22:00 PM EDT PHYSICIANAdmitter : SOFIA ED STAFF PHYSICIAN Patient discharged. Outpatient 01/28/2020 [facility] 04:33:00 PM EDT Medical C enter PHONE E/M BY PHYS Attender[facility] 01/28/2020 NEXTGEN ([facility] 11-20 MIN [facility] 10:25:00 AM EDT [facility] 01/28/2020 Center) 10:25:00 AM EDT Outpatient Attender: Gaby Oleary 01/28/2020 [facility] VelezAdmitter: 09:54:00 AM EDT Medic al Center Gaby TaoReferrer: Gaby Tao Attender: [facility] 01/28/2020 NEXTGE N [facility] 09:54:00 AM EDT [facility] 01/28/2020 Center) 09:54:00 AM EDT Outpatient 01/28/2020 [facility] 12:00:00 AM EDT Medical C enter Attender: [facility] 01/27/2020 NEXTG EN ([facility] 04:08:00 PM EDT [facility] 01/27/2020 [place]) 04:08:00 PM EDT Outpatient Attender: BAILEE Oleary 01/21/2020 [facility] 12:48:00 PM EDT - Medical Center SETHAdmitter: 01/21/2020 BAILEE CALLIE 03:10:00 PM EDT SETHReferrer: BAILEE LEDESMA BAILEE Attender: Bailee 01/21/2020 [facility] (Sacha Ledesma 12:48:00 PM EDT [facility] 01/21/2020 [place]) 12:48:00 PM EDT 01/21/2020 [facility] 12:00:00 AM EDT - Medical Center 03/08/2017 12:00:00 AM EDT Attender: [facility] 01/19/2020 NEXTG EN ([facility] 12:46:00 PM EDT [facility] 01/19/2020 [place]) 12:46:00 PM EDT Outpatient 01/06/2020 [facility] 05:43:00 PM EDT Medical C enter Outpatient Attender: Dinah Oleary 01/06/2020 [facility] 10:26:00 AM EDT [facility] Center DOAdmitter: Dinah Pretty DOReferrer: Dinah Pretty DO OutpatientOFFICE/O Attender: [facility] 01/06/2020 TIBURCIOGEN ([facility] 10:26:00 AM ED[facility] 01/06/2020 [place]) 10:26:00 AM EDT Outpatient 01/06/2020 [facility] 10:23:00 AM EDT Medical C enter Outpatient 01/06/2020 [facility] 12:00:00 AM EDT Medical C enter Attender: [facility] 01/02/2020 NEXTG EN ([facility] 11:01:00 AM EST [facility] 01/02/2020 [place]) 11:01:00 AM EST Outpatient Attender: Gaby Oleary 01/01/2020 [facility] VelezAdmitter: 03:27:00 PM EST Medic al Center Gaby VelezReferrer: Gaby Tao OutpatientOFFICE/O Attender: [facility]2020 [facility] 03:27:00 PM [facility] - [facility] 01/01/2020 [place]) 03:27:00 PM EST Outpatient 01/01/2020 [facility] 12:41:00 PM EST Medical C enter Outpatient 01/01/2020 [facility] 12:00:00 AM EST Medical C enter Attender: [facility] 12/30/2019 NEXTGE N ([facility] 11:49:00 AM [facility] 12/30/2019 [place]) 11:49:00 AM EST Outpatient 12/30/2019 [facility] 10:44:00 AM EST Medical C enter Outpatient 12/30/2019 [facility] 12:00:00 AM EST Medical C enter Attender: [facility] 12/25/2019 NEXT EN ([facility] 03:00:00 PM [facility] 12/25/2019 [place]) 03:00:00 PM EST Outpatient 12/24/2019 [facility] 09:42:00 AM EST Medical C enter Outpatient Attender: BAILEE Oleary 12/24/2019 [facility] LEDESMA 09:27:00 AM EST Medical C enter SETHAdmitter: BAILEE LEDESMA SETHReferrer: BAILEE MOROCHO OutpatientOFFICE/O Attender: [facility] 12/24/2019 [facility] ([facility] VISITTurner 09:27:00 AM [facility] 12/24/2019 [place]) 09:27:00 AM EST Outpatient 12/24/2019 [facility] 12:00:00 AM EST Medical C enter Emergency Attender: LUKAS Oleary 12/23/2019 [facility] ED STAFF 10:39:00 AM [facility] - Medical Center PHYSICIANAttender 12/23/2019 : STAFF ED STAFF 07:01:00 PM EST PHYSICIANAdmitter : LUKAS ED STAFF PHYSICIAN Patient discharged. Outpatient Attender: Dinah Oleary 12/16/2019 [facility] 09:24:00 AM [facility] Medical Center DOAdmitter: Dinah Pretty DOReferrer: Dinah Pretty DO OutpatientOFFICE/O Attender: [facility] 12/16/2019 [facility] ([facility] VISIT, [facility] 09:24:00 AM [facility] 09:24:00 AM EST Center) Outpatient 12/16/2019 [facility] 09:21:00 AM EST Medical C enter Outpatient 12/16/2019 [facility] 12:00:00 AM EST Medical C enter Emergency Attender: SOFIA Oleary 12/15/2019 [facility] ED STAFF 08:43:00 AM EST - Medical Center PHYSICIANAttender: 12/15/2019 STAFF ED STAFF 01:32:00 PM EST PHYSICIANAdmitter: SOFIA ED STAFF PHYSICIAN Patient discharged. Attender: [facility] 12/11/2019 JOANA N ([facility] 03:45:00 PM [facility] - [facility] 12/11/2019 Medical 03:45:00 PM EST Center) Outpatient 12/06/2019 [facility] 03:48:00 PM EST Medical C enter Outpatient Attender: MILEY Oleary 12/06/2019 [facility] tim MAYA 08:44:00 AM EST Medical C enter MINALAdmitter: MILEY TREJO MINALReferrer: MILEY TRENT OutpatientOFFICE/O Attender: [facility] 12/06/2019 [facility] ([facility] VISIT, [facility] 08:44:00 AM EST - J [facility] 12/06/2019 Medical 08:44:00 AM EST Center) Outpatient 12/06/2019 [facility] 12:00:00 AM EST Medical C enter Attender: [facility] 12/03/2019 DWAYNE EN ([facility] 10:25:00 AM [facility] 12/03/2019 Medical 10:25:00 AM EST Center) [facility] 02:53:00 PM EST [facility] 11/27/2019 Medical 02:53:00 PM EST Center) [facility]: [facility]2019 [facility] ([facility] 02:18:00 PM EST [facility] 11/25/2019 Medical 02:18:00 PM EST Center) Outpatient Attender: JASKARAN Oleary 11/25/2019 [facility] 08:56:00 AM EST Medical C enter NAYELAdmitter: JASKARAN STONEReferrer: JASKARAN STONE Attender: [facility] 11/25/2019 NEXTGE N ([facility] 08:56:00 AM EST - [facility] 11/25/2019 Medical 08:56:00 AM EST Center) Outpatient 11/18/2019 [facility] 03:46:00 PM EST Medical C enter Outpatient Attender: MILEY Oleary 11/18/2019 [facility]A 01:56:00 PM EST Medical C enter MINALAdmitter: MILEY TREJO MINALReferrer: MILEY TRENT OutpatientOFFICE/O Attender: [facility] 11/18/2019 NEXTGEN ([facility] VISIT, [facility] 01:56:00 PM EST - J [facility] 11/18/2019 Medical 01:56:00 PM EST Center) Outpatient 11/18/2019 [facility] 12:00:00 AM EST Medical C enter Attender: [facility] 11/14/2019 NEXT EN ([facility] 02:41:00 PM [facility] 11/14/2019 Medical 02:41:00 PM EST Center) Attender: [facility] 10/27/2019 TIBURCIO N ([facility] 03:45:00 PM EST [facility] 10/27/2019 Medical 03:45:00 PM EST Center) Attender: [facility] 10/21/2019 NEXT EN ([facility] 03:51:00 PM EST [facility] 10/21/2019 Medical 03:51:00 PM EST Center) Outpatient 10/03/2019 [facility] 04:19:00 PM EST Medical C enter Outpatient Attender: Gaby Oleary 10/03/2019 [facility] VelezAdmitter: 09:20:00 AM EST Medic al Center Gaby TaoReferrer: Gaby Tao OutpatientOFFICE/O Attender: [facility] 10/03/2019 NEXTGEN ([facility] [place], [facility] 09:20:00 AM EST [facility] 10[facility]03[facility]2019 Medical 09:20:00 AM EST Center) Outpatient 10/03/2019 [facility] 12:00:00 AM EST Medical C enter Attender: [facility] 10/01/2019 NEXTG EN ([facility] 06:30:00 PM [facility] 10/01/2019 Medical 06:30:00 PM EST Center) Attender: [facility] 10/01/2019 NEXTGE N ([facility] Jaxon [facility] 04:47:00 PM [facility] 10/01/2019 Medical 04:47:00 PM EST Center) Attender: [facility] 10/01/2019 NEXTG EN ([facility] 09:31:00 AM [facility] 10/01/2019 Medical 09:31:00 AM EST Center) Attender: [facility] 09/18/2019 NEXTGE N ([facility] 02:41:00 PM [facility] 09/18/2019 Medical 02:41:00 PM EST Center) Attender: [facility] 09/11/2019 ZHANG DE LA CRUZEN ([facility] 02:11:00 PM [facility] 09/11/2019 Medical 02:11:00 PM EST Center) Outpatient Attender: Laura Oleary 09/02/2019 [facility] Hidmitter: 02:04:00 PM EST [facility] Laura Boazerrer: Laura Ovalles Attender: [facility] 09/02/2019 NEXT EN ([facility] 02:04:00 PM [facility] 09/02/2019 Medical 02:04:00 PM EST Center) Outpatient 09/02/2019 [facility] 11:07:00 AM EST Medical C enter Outpatient 09/02/2019 [facility] 12:00:00 AM EST Medical C enter Outpatient Attender: TITUS Oleary 08/19/2019 [facility] 12:25:00 PM EDT Medical Center ZACKARYAdmitter: TITUS RAYMUNDOReferrer: TITUS RAYMUNDO Attender: [facility] 08/19/2019 NEXT GEN ([facility] 12:25:00 PM EDT - [facility] 08/19/2019 Medical 12:25:00 PM EDT Center) Outpatient 08/19/2019 [facility] 12:04:00 PM EDT Medical C enter Outpatient 08/19/2019 [facility] 12:00:00 AM EDT - Medical Center 03/08/2017 12:00:00 AM EDT Outpatient Attender: NANELIDA H 08/05/2019 [facility] 10:22:00 AM EDT - Medical Center NAYELAdmitter: 08/05/2019 NANELIDA ANDRES 03:00:00 PM EDT NAYELReferrer: JASKARAN CAMPOS NAYEL Attender: Nayel 08/05/2019 [facility]EXTGEN [facility] AM [facility] 08/05/2019 Medical 10:22:00 AM EDT Center) Outpatient Admitter: NAYEL H 08/05/2019 [facility] NAYEL 09:33:00 AM EDT Medical Center 08/05/2019 [facility] 12:00:00 AM EDT - Medical Center 03/08/2017 12:00:00 AM EDT Outpatient Attender: Gaby Oleary 08/02/2019 [facility] AislinnAdmitter: 01:59:00 PM EDT Medic al Center Gaby TaoReferrer: Gaby Tao OutpatientOFFICE/O Attender: [facility] 08[facility]02/2019 [facility] 01:59:00 PM EDT - J osephs EST 08/02/2019 Medical 01:59:00 PM EDT Center) Outpatient 08/02/2019 [facility] 01:54:00 PM EDT Medical C enter Outpatient 08/02/2019 [facility] 12:00:00 AM EDT Medical C enter Attender: Esperanza 07/30/2019 [facility] ( [facility] 09:47:00 AM EDT - [facility] 07/30/2019 Medical 09:47:00 AM EDT Center) Outpatient Attender: MILEY Oleary 07/29/2019 [facility]A 05:15:00 PM EDT Medical C enter MINALAdmitter: MILEY TREJO MINSHANAEReferrer: MILEY TRENT OutpatientOFFICE/O Attender: [facility] 07/29/2019 [facility] 05:15:00 PM EDT - J osephs EST 07/29/2019 Medical 05:15:00 PM EDT Center) Outpatient 07/29/2019 [facility] 11:16:00 AM EDT Medical C enter Outpatient 07/29/2019 [facility] 12:00:00 AM EDT Medical C enter Outpatient 07/22/2019 [facility] 10:22:00 AM EDT Medical C enter Outpatient Attender: Gaby Oleary 07/22/2019 [facility] VelezAdmitter: 09:36:00 AM EDT Medic al Center Gaby TaoReferrer: Gaby Tao OutpatientOFFICE/O Attender: [facility] 07/22/2019 TIBURCIOGEN ([facility] 09:36:00 AM EDT - [facility] EST 07/22/2019 Medical 09:36:00 AM EDT Center) Outpatient 07/22/2019 [facility] 12:00:00 AM EDT Medical C enter Outpatient Attender: JASKARAN 07/14/2019 [facility]AMP[facility] 12:11:00 PM EDT Medical C enter NAYELAdmitter: JASKARAN CAMPOS NAYELReferrer: JASKARAN STONE Attender: [facility] 07/14/2019 TIBURCIOG EN ([facility] 12:11:00 PM EDT [facility] 07/14/2019 Medical 12:11:00 PM EDT Center) Outpatient 07/14/2019 [facility] 11:55:00 AM EDT Medical C enter Outpatient 07/14/2019 [facility] 12:00:00 AM EDT Medical C enter Attender: [facility] 07/02/2019 TIBURCIOGE N ([facility] 09:46:00 AM EDT [facility] 07/02/2019 Medical 09:46:00 AM EDT Center) [facility] 07/01/2019 NEXTG EN [facility] 09:28:00 AM EDT - [facility] 07/01/2019 Medical 09:28:00 AM EDT Center) Outpatient 06/23/2019 [facility] 10:20:00 AM EDT Medical C enter Outpatient Attender: Jesscia Oleary 06/23/2019 [facility] Garciadmitter: 08:45:00 AM EDT Med ical Center Jessica Garciaeferrer: Jessica Alfonso OutpatientOFFICE/O Attender: [facility] 06/23/2019 NEXTGEN ([facility] VISIT, [facility] 08:45:00 AM EDT - J osephs EST 06/23/2019 Medical 08:45:00 AM EDT Center) Outpatient 06/23/2019 [facility] 12:00:00 AM EDT Medical C enter Attender: [facility] 06/16/2019 NEXTGE N ([facility] Jaxon [facility] 09:31:00 AM EDT [facility] 06/16/2019 Medical 09:31:00 AM EDT Center) Attender: [facility] 06/12/2019 NEXT EN ([facility] 03:09:00 PM EDT [facility] 06/12/2019 Medical 03:09:00 PM EDT Center) Attender: [facility] 06/11/2019 NEXT EN ([facility] 12:59:00 PM EDT [facility] 06/11/2019 Medical 12:59:00 PM EDT Center) Outpatient Attender: Gaby Oleary 06/10/2019 [facility] tim AislinnAdmitter: 09:25:00 AM EDT Medic al Center Gaby TaoReferrer: Gaby Tao OutpatientOFFICE/O Attender: [facility] 06/10/2019 [facility] ([facility] VISIT, Abraham [place] 09:25:00 AM EDT - J osep EST 06/10/2019 Medical 09:25:00 AM EDT Center) Outpatient 06/10/2019 [facility] 09:23:00 AM EDT Medical C enter Outpatient 06/10/2019 [facility] 12:00:00 AM EDT Medical C enter Attender: [facility] 06/09/2019 NEXTGE N ([facility] Jaxon [facility] [place] 03:13:00 PM EDT [facility] 06/09/2019 Medical 03:13:00 PM EDT Center) Attender: [facility] 06/05/2019 NEXTG EN ([facility] 01:51:00 PM EDT [facility] 06/05/2019 Medical 01:51:00 PM EDT Center) Attender: [facility] 06/05/2019 ZHANG HUNTLYE ([facility] 11:52:00 AM EDT [facility] 06/05/2019 Medical 11:52:00 AM EDT Center) Outpatient 06/04/2019 [facility] 09:33:00 AM EDT Medical C enter Outpatient Attender: Dinah 06/04/2019 [facility] 09:32[facility]00 AM EDT [facility] Center DOAdmitter: Anikettamy [facility] DOReferrer: Dinah [facility] DO OutpatientOFFICE/O Attender: [facility] 06/04/2019 NEXTGEN ([facility] [place], [facility] 09:32:00 AM EDT - J osephs EST 06/04/2019 Medical 09:32:00 AM EDT Center) Outpatient 06/04/2019 [facility] 12:00:00 AM EDT Medical C enter Outpatient 05/20/2019 [facility] 03:57:00 PM EDT Medical C enter Outpatient Attender: Laura Oleary 05/20/2019 [facility] Hidmitter: 02:44:00 PM EDT [facility] Laura Lameferrer: Laura Ovalles OutpatientOFFICE/O Attender: [facility] 05/20/2019 TIBURCIOGEN ([facility] VISIT, [facility] 02:44:00 PM EDT - J osep EST 05/20/2019 Medical 02:44:00 PM EDT Center) Outpatient 05/20/2019 [facility] 12:00:00 AM EDT Medical C enter Outpatient 05/13/2019 [facility] 11:32:00 AM EDT Medical C enter Outpatient 05/13/2019 [facility] 12:00:00 AM EDT Medical C enter [facility] 04/16/2019 NEXTG EN ([facility] DO Center 10:31:00 AM EDT [facility] 04/16/2019 Medical 10:31:00 AM EDT Center) Attender: [facility] 04/01/2019 NEX TGEN ([facility] 11:37:00 AM EDT [facility] 04/01/2019 Medical 11:37:00 AM EDT Center) Outpatient 03/31/2019 [facility] 09:02:00 AM EDT Medical C enter Emergency H 03/31/2019 [facility] 06:28:00 AM EDT Medical C enter Outpatient 03/31/2019 [facility] 12:00:00 AM EDT Medical C enter [facility] TIBURCIOGE N ([facility] 09:33:00 AM EDT - [facility] 03/11/2019 Medical 09:33:00 AM EDT Center) [facility]: [facility] 03/10/2019 JOANA N ([facility] [place] 10:39:00 AM EDT - [facility] 03/10/2019 Medical 10:39:00 AM EDT Center) Outpatient Attender: Gaby Oleary 01/22/2019 [facility] Sebastián TaoAdmitter: 06:48:00 PM EDT Medic al Center Gaby TaoReferrer: Gaby Tao OutpatientOFFICE/O Attender: [facility] 01/22/2019 ZHANG HUNTLEY ([facility] 06:48[facility]00 PM EDT Sandra DOMINGO MD 01/22/2019 Medical 06:48:00 PM EDT Center) Outpatient 01/22/2019 [facility] 08:48:00 AM EDT Medical C enter Outpatient 01/22/2019 [facility] 12:00:00 AM EDT Medical C enter Attender: Laura [facility] 11/26/2018 ZHANG HUNTLEY ([facility] 09:56:00 AM EST [facility] 11/26/2018 Medical 09:56:00 AM EST Center) Outpatient Admitter: ANA 11/14/2018 [facility] Carline CONNORSZECHODKRISTOPHER DAVISONUTA 11:16:00 AM EST edical Center OutpatientOFFICE/O Attender: [facility] 10/30/2018 ZHANG HUNTLEY ([facility] UTPATIENT VISIT, [facility] 08:52:00 AM CHAYO DOMINGO MD 10/30/2018 Medical 08:52:00 AM EST Center) OutpatientOFFICE/O Attender: [facility] 08/14/2018 ZHANG HUNTLEY ([facility] UTPATIENT VISIT, JalenSandro Kaplan [place] 12:42:00 PM EDT Sandra DOMINGO MD 08/14/2018 Medical 12:42:00 PM EDT Center) OutpatientOFFICE/O Attender: [facility] 07/09/2018 ZHANG HUNTLEY ([facility] UTPATIENT VISIT, [facility] 12:41:00 PM EDT - Apollo DOMINGO MD 07/09/2018 Medical 12:41:00 PM EDT Center) OutpatientOFFICE/O Attender: [facility] 04/22/2018 [facility]EN [facility] 02:51:00 PM EDT - Apollo DOMINGO MD 04/22/2018 Medical 02:51:00 PM EDT Center) OutpatientOFFICE/O Attender: [facility] 03/11/2018 NEX TGKWAKU [facility] 10:47:00 AM EDT - Apollo DOMINGO MD 03/11/2018 Medical 10:47:00 AM EDT Center) OutpatientOFFICE/O Attender: [facility] 02/25/2018 NEX TGKWAKU ([facility] VISIT, [facility] 09:07:00 AM EDT - Apollo MILLER MD 02/25/2018 Medical 09:07:00 AM EDT Center) Immunizations Vaccine Date Status Description Data Source(s) Pneumococcal conjugate 07/22/2019 completed PCV13 NEXTG EN ([facility] PCV 13 12:00:00 AM EDT [facility]) Source: New Immunization Record New in 2011. 07/22/2019 12:00:00 completed Influenza, Injectable , NEXTGEN ([facility] IIV4 AM EDT Quadrivalent [facility]) Source: New Immunization Record Tdap 02/25/2018 12:00:00 AM EDT completed Tdap N EXTGEN ([facility]) Source: New Immunization Record Medications Medication Brand Start Product Dose Route Administrative Pharmacy at Indications Reaction Description Data Name Date Form Instructions Instructions Source(s) gabapentin GABAPE 07/13/ CAPSULE 90 complet ASHLEY PENTIN MEDGEN (St 100 MG Oral NTIN:3 2019 ed [employer] 59552 12:00: Medical, GABAPENTIN: 00 AM PC) [id number] EDT atorvastati ATORVA 06/29/ active ONE TAB LET NEXTGEN n 20 MG STATIN 2020 BY MOUTH ([facility] Oral Tablet TAB 12:00: DAILY Cameron hs ATORVASTATI 20MG 00 AM Medical N TAB 20MG EDT Center) Meclizine mecliz 1.00 ORAL active take 1 NE XTGEN Hydrochlori ine 2019 {tabl tablet by (Saint de 25 MG mg 12:00: et} oral route 3 J osephs Oral Tablet tablet 00 AM times ever y Medical meclizine EDT day as Center) 25 mg needed tablet Atenolol Atenol .0 active Atenolol-C hl eCW1 100 MG / ol-Chl 2019 {tabl orthalidone ( Saint Chlorthalid orthal 12:00: et} 100-25 MG Apollo one 25 MG idone 00 AM Medical Oral Tablet 100-25 EDT Practi ce Atenolol-Ch MG PC) lorthalidon e 100-25 MG Atenolol 50 Atenol .0 active Atenolo l-Chl eCW1 MG / ol-Chl 2019 {tabl orthalidone (Joellen t Chlorthalid orthal 12:00: et} 50-25 MG Apollo one 25 MG idone 00 AM Medical Oral Tablet 50-25 EDT Practic e Atenolol-Ch MG PC) lorthalidon e 50-25 MG Atenolol 50 Atenol .0 active Atenolo l-Chl eCW1 MG / ol-Chl 2019 {tabl orthalidone (Joellen t Chlorthalid orthal 12:00: et} 50-25 MG Apollo one 25 MG idone 00 AM Medical Oral Tablet 50-25 EDT Practic e Atenolol-Ch MG PC) lorthalidon e 50-25 MG Hydrochloro hydroc .00 ORAL complet take 1 NEXTGEN thiazide 25 hlorot 2019 {tbl} ed tablet by (Saint MG Oral hiazid 12:00: oral route Carline sephs Tablet e 25 00 AM every day Medical hydrochloro mg EDT Center) thiazide 25 tablet mg tablet Losartan losart .00 ORAL active take 1 NEX TGEN Potassium an 100 2019 {tabl tablet by (S aint 100 MG Oral mg 12:00: et} oral route Apollo Tablet tablet 00 AM every day Medic al losartan EDT Center) 100 mg tablet atorvastati ATORVA 04/19/ complet ONE TA BLET NEXTGEN n 20 MG STATIN 2019 ed BY MOUTH (Saint Oral Tablet TAB 12:00: DAILY Cameron hs ATORVASTATI 20MG 00 AM Medical N TAB 20MG EDT Center) azelastine Azelas 03/02/ active spray 2 NEXTGEN 137 mcg rivas 2020 spray by (Saint (0.1 %) hydroc 12:00: intranasal Carline sephs nasal spray hlorid 00 AM route 2 Me dical aerosol e EDT times every Cente r) 0.137 day in each MG/ACT nostril UAT Metere d Dose Nasal [place] atorvastati ATORVA 02/04/ complet ONE TA BLET NEXTGEN n 20 MG STATIN 2020 ed BY MOUTH ([facility] Oral Tablet TAB 12:00: DAILY Cameron hs ATORVASTATI 20MG 00 AM Medical N TAB 20MG EDT Center) Diclofenac diclof G TOPICA complet apply (2G) NEXTGEN Sodium 0.01 enac 1 2020 L ed by topical (Saint MG/MG % 12:00: route 4 Apollo Topical Gel topica 00 AM times ever y Medical diclofenac l gel EDT day to the [facility]) 1 % topical affected gel area(s) azelastine Azelas 01/27/ 2.00 NASAL complet spray 2 NEXTGEN 137 mcg rivas 2020 spray ed spray by (Saint (0.1 %) hydroc 12:00: intranasal Carline sephs nasal spray hlorid 00 AM route 2 Me dical aerosol e EDT times every Cente r) 0.137 day in each MG/ACT nostril UAT Metere d Dose Nasal [place] cetirizine cetiri 01/27/ active take 1 N EXTGEN hydrochlori zine 5 2020 tablet by ( de 5 MG mg 12:00: oral route Titus phs Oral Tablet tablet 00 AM every day as Medical cetirizine EDT needed Center) 5 mg tablet Diclofenac diclof .00 ORAL active take 1 N EXTGEN Sodium 50 enac 2020 {tabl tablet by (Chidi nt MG Delayed sodium 12:00: et} oral route 2 Apollo Release 50 mg 00 AM times every Med ical Oral Tablet tablet EDT day Center ) diclofenac ,delay sodium 50 ed mg releas tablet,kristian e yed release sennosides, Senna ORAL active take 1 N EXTGEN ALF 8.6 MG Lax 2020 {tabl tablet by (Sa int Oral Tablet 8.6 mg 12:00: et} oral rout e Apollo Senna Lax tablet 00 AM every day as Medical 8.6 mg EDT needed for Center) tablet constipation Diclofenac diclof ORAL complet take 1 NEXTGEN Sodium 50 enac 2020 {tbl} ed tablet by (Chidi nt MG Delayed sodium 12:00: oral route 2 [facility] Release 50 mg 00 AM times every Med ical Oral Tablet tablet EDT day Center ) diclofenac ,delay sodium 50 ed mg releas tablet,kristian e yed release Lactulose lactul ORAL complet take 1 N EXTGEN 83.3 MG/ML ose 10 2019 packe ed packet by ( Saint Oral gram 12:00: t oral route Apollo Solution oral 00 AM every day Medic al lactulose packet EDT dissolved in Center) 10 gram 4 ounces of oral packet water Losartan losart ORAL complet take 1 NE XTGEN Potassium an 100 2019 {tbl} ed tablet by (S aint 100 MG Oral mg 12:00: oral route [facility] Tablet tablet 00 AM every day Medic al losartan EDT Center) 100 mg tablet Hydrochloro hydroc ORAL complet take 1 NEXTGEN thiazide 25 hlorot 2019 {tbl} ed tablet by (Saint MG Oral hiazid 12:00: oral route Carline sephs Tablet e 25 00 AM every day Medical hydrochloro mg EDT Center) thiazide 25 tablet mg tablet Menthol 160 Asperc 12/31/ active Uses ev placido 6 NEXTGEN MG/ML kathrin 2020 h in (Saint Topical Max 16 12:00: affected Titus phs Solution % 00 AM areas Medical Aspercreme topica EST Center) Max 16 % l topical liquid liquid 8 HR Tyleno 12/31/ 2.00 ORAL active 8 HR NEXTGEN Acetaminoph l 2020 {tabl acetaminophe (Saint en 650 MG Arthri 12:00: et} n 650 MG Carline sephs Extended tis 00 AM Extended Medica l Release Pain EST Release Oral Cent er) Oral Tablet 650 mg Tablet [Tylenol] tablet [Tylenol] Tylenol ,exten Arthritis ded Pain 650 mg releas tablet,exte e nded release Diclofenac Voltar 12/31/ active diclofen ac NEXTGEN Sodium 0.01 en 1 % 2020 sodium 0.01 (Saint MG/MG topica 12:00: MG/MG Apollo Topical Gel l gel 00 AM Topical Gel Medical [Voltaren] EST [Voltaren] [address] ter) Voltaren 1 % topical gel Cyclobenzap cyclob ORAL active take 1 NEXTGEN rine enzapr 2020 {tabl tablet by (Saint hydrochlori ine 10 12:00: et} oral rout e 3 Apollo de 10 MG mg 00 AM times every Med ical Oral Tablet tablet EST day Center ) cyclobenzap rine 10 mg tablet Naproxen naprox ORAL complet take 1 NE XTGEN 500 MG Oral en 500 2019 {tbl} ed tablet by (Saint Tablet mg 12:00: oral route 2 Sebastián ephs naproxen tablet 00 AM times every M edical 500 mg EST day with Center) tablet food Capsaicin Arthri 12/16/ TOPICA active apply b y NEXTGEN 0.75 MG/ML tis 2020 L topical (Saint Topical Pain 12:00: route 3 Apollo Cream Relief 00 AM times every Medi melida Arthritis (capsa EST day to the nt) Pain Relief icin) affected (capsaicin) 0.075 area(s) 0.075 % % topical topica cream l cream Naproxen naprox ORAL complet take 1 NE XTGEN 500 MG Oral en 500 2019 {tbl} ed tablet by (Saint Tablet mg 12:00: oral route 2 Sebastián ephs naproxen tablet 00 AM times every M edical 500 mg EST day with Center) tablet food atorvastati ATORVA 11/25/ complet ONE TA BLET NEXTGEN n 20 MG STATIN 2019 ed BY MOUTH ([facility] Oral Tablet TAB 12:00: DAILY Cameron hs ATORVASTATI 20MG 00 AM Medical N TAB 20MG EST Center) Bisacodyl 5 Correc ORAL active bisacod yl 5 NEXTGEN MG Delayed bernard 5 2020 {tabl MG Delayed ( [facility] Release mg 12:00: et} Release Oral Carline sephs Oral Tablet tablet 00 AM Tablet Med ical [Correctol EST [Correctol Hamzah ter) laxative laxative Reformulate Reformulated d Nov 2007] Nov 2007] Correctol 5 mg tablet atorvastati atorva 09/11/ complet ONE TA BLET NEXTGEN n 20 MG statin 2018 ed BY MOUTH ([facility] Oral Tablet 20 mg 12:00: DAILY Titus phs atorvastati tablet 00 AM Medic al n 20 mg EST Center) tablet Hydrochloro losart 09/11/ complet ONE TA BLET NEXTGEN thiazide 25 an 2018 ed BY MOUTH (S aint MG / mg-hyd 12:00: DAILY Apollo Losartan rochlo 00 AM Medical Potassium rothla EST Center) 100 MG Oral zide Tablet 25 mg losartan tablet 100 mg-hydrochl orothiazide 25 mg tablet Hydrochloro LOSART complet ONE TA BLET NEXTGEN thiazide 25 AN/HCT 2018 ed BY MOUTH (S aint MG / TAB 12:00: DAILY Apollo Losartan 100-25 00 AM Medical Potassium EDT Center) 100 MG Oral Tablet LOSARTAN/HC T TAB 100-25 atorvastati ATORVA complet ONE TA BLET NEXTGEN n 20 MG STATIN 2018 ed BY MOUTH ([facility] Oral Tablet TAB 12:00: DAILY Cameron hs ATORVASTATI 20MG 00 AM Medical N TAB 20MG EDT Center) Meclizine mecliz ORAL complet take 1 N EXTGEN Hydrochlori ine 25 2018 {tbl} ed tablet by ( de 25 MG mg 12:00: oral route 3 J osephs Oral Tablet tablet 00 AM times ever y Medical meclizine EDT day as Center) 25 mg needed tablet Hydrochloro losart ONE TA BLET NEXTGEN thiazide 25 2018 ed BY MOUTH (S aint MG / mg-hyd 12:00: DAILY Apollo Losartan rochlo 00 AM Medical Potassium [facility] EDT Center) 100 MG Oral zide Tablet 25 mg losartan tablet 100 mg-hydrochl orothiazide 25 mg tablet Metronidazo metron ORAL complet take 1 NEXTGEN le 500 MG idazol 2018 {tbl} ed tablet by (S aint Oral Tablet e 500 12:00: oral route Apollo metronidazo mg 00 AM every 8 Medi melida le 500 mg tablet EDT hours Center) tablet Ciprofloxac ciprof ORAL complet take 1 NEXTGEN in 500 MG loxaci 2018 {tbl} ed tablet by (S aint Oral Tablet n 500 12:00: oral route Apollo ciprofloxac mg 00 AM every 12 Med ical in 500 mg tablet EDT hours Center) tablet Ibuprofen ibupro .00 ORAL complet take 1 N EXTGEN 200 MG Oral fen 2018 {tbl} ed tablet by (S aint Tablet 200 mg 12:00: oral route Sebastián ephs ibuprofen tablet 00 AM every 6 Medi melida 200 mg EDT hours as Center) tablet needed with food atorvastati ATORVA complet ONE TA BLET NEXTGEN n 20 MG STATIN 2019 ed BY MOUTH ([facility] Oral Tablet TAB 12:00: DAILY Cameron hs ATORVASTATI 20MG 00 AM Medical N TAB 20MG EDT Center) Hydrochloro LOSART complet ONE TA BLET NEXTGEN thiazide 25 AN/HCT 2018 ed BY MOUTH (S aint MG / TAB 12:00: DAILY [facility] Losartan 100-25 00 AM Medical Potassium EDT Center) 100 MG Oral Tablet LOSARTAN/HC T TAB 100-25 Loratadine lorata 01/22/ complet Take 1 NEXTGEN 10 MG Oral dine 2018 ed capsule ( Capsule 10 mg 12:00: orally every J osephs loratadine capsul 00 AM night as Me dical 10 mg e EDT needed Center) capsule Acetaminoph Mapap .00 ORAL complet Acetami nophe NEXTGEN en 500 MG (aceta 2018 {caps ed n 500 MG (Sa int Oral minoph 12:00: ule} Oral Capsule Sebastián ephs Capsule en) 00 AM [Mapap] Medical [Mapap] 500 mg EDT Center) Mapap capsul (acetaminop e hen) 500 mg capsule fluticasone Flutic 01/22/ complet spray 1 NEXTGEN 50 asone 2019 ed spray by ( mcg/actuati propio 12:00: eric Bustillos on nasal conrad 00 AM route every Me dical spray,suspe 0.05 EDT day in each C enter) nsion MG/ACT nostril UAT Metere d Dose Nasal [place] Acetaminoph Mapap ORAL complet Acetami nophe NEXTGEN en 500 MG (aceta 2018 {caps ed n 500 MG (Sa int Oral minoph 12:00: ule} Oral Capsule Sebastián ephs Capsule en) 00 AM [Mapap] Medical [Mapap] 500 mg EST Center) Mapap capsul (acetaminop e hen) 500 mg capsule Methocarbam Robaxi 11/26/ complet Methoc arbamo NEXTGEN ol 750 MG n-750 2018 ed l 750 MG (Joellen t Oral Tablet 750 mg 12:00: Oral Tabl et [facility] [Robaxin] tablet 00 AM [Robaxin] Me dical Robaxin-750 EST Center) 750 mg tablet Probiotic L. Take 1 NEX TGEN 15 billion acidop 2018 ed capsule (Chidi nt cell hilus/ 12:00: orally daily Sebastián ephs capsule L. 00 AM [facility] helen Aspirin 81 aspiri ORAL complet chew 1 NEXTGEN MG Chewable n 81 2019 {tbl} ed tablet by (S aint Tablet mg 12:00: oral route Cameron hs aspirin 81 chewab 00 AM every day M edical mg chewable le EST Center) tablet tablet atorvastati atorva ORAL complet take 1 NEXTGEN n 20 MG statin 2019 {tbl} ed tablet by (Chidi nt Oral Tablet 20 mg 12:00: oral route [facility] atorvastati tablet 00 AM every day [facility] n 20 mg EST [place]) tablet Hydrochloro losart ORAL complet take 1 NEXTGEN thiazide 25 an 100 2018 {tbl} ed tablet by (Saint MG / mg-hyd 12:00: oral route Cameron hs Losartan rochlo 00 AM every day Med ical Potassium rothia EST Center) 100 MG Oral zide Tablet 25 mg losartan tablet 100 mg-hydrochl orothiazide 25 mg tablet Acetaminoph Mapap . ORAL complet Acetami nophe NEXTGEN en 500 MG (aceta 2019 {caps ed n 500 MG (Sa int Oral minoph 12:00: ule} Oral Capsule Sebastián ephs Capsule en) 00 AM [Mapap] Medical [Mapap] 500 mg EST Center) Mapap capsul (acetaminop e hen) 500 mg capsule Probiotic L. complet Take 1 NEX TGEN 15 billion acidop 2017 ed capsule (Chidi nt cell hilus/ 12:00: orally daily Sebastián ephs capsule L. 00 AM [facility] rhamn EDT Center) helen Methocarbam Robaxi complet Methoc arbamo NEXTGEN ol 750 MG n-750 2017 ed l 750 MG (Joellen t Oral Tablet 750 mg 12:00: Oral Tabl et [facility] [Robaxin] tablet 00 AM [Robaxin] Me dical Robaxin-750 EDT Center) 750 mg tablet Diclofenac diclof ORAL complet take 1 NEXTGEN Sodium 50 enac 2018 {tbl} ed tablet by (Chidi nt MG Delayed sodium 12:00: oral route 2 [facility] Release 50 mg 00 AM times every Med ical Oral Tablet tablet EDT day Center ) diclofenac ,delay sodium 50 ed mg releas tablet,kristian e yed release atorvastati atorva ORAL complet take 1 NEXTGEN n 20 MG statin 2018 {tbl} ed tablet by (Chidi nt Oral Tablet 20 mg 12:00: oral route [facility] atorvastati tablet 00 AM every day Medical n 20 mg EDT Center) tablet Hydrochloro losart ORAL complet take 1 NEXTGEN thiazide 25 an 100 2017 {tbl} ed tablet by (Saint MG / mg-hyd 12:00: oral route Cameron hs Losartan rochlo 00 AM every day Med ical Potassium rothia EDT Center) 100 MG Oral zide Tablet 25 mg losartan tablet 100 mg-hydrochl orothiazide 25 mg tablet Aspirin 81 aspiri ORAL complet chew 1 NEXTGEN MG Chewable n 81 2017 {tbl} ed tablet by (S aint Tablet mg 12:00: oral route Cameron hs aspirin 81 chewab 00 AM every day M edical mg chewable le EDT Center) tablet tablet gabapentin Gabape 1.0 active Gabapentin eCW1 300 MG Oral ntin {caps 300 MG (Joellen t Capsule 300 MG ule} [facility] Gabapentin Medical 300 MG Practice PC) Meclizine Mecliz 1.0 active Meclizine e CW1 Hydrochlori ine {tabl HCl 25 MG (S aint de 25 MG HCl 25 et_as [facility] Oral Tablet MG _need Medical Meclizine ed} Practice HCl 25 MG PC) hydrochloro complet [facility] thiazide 25 ed [facility] mg [facility] losartan-hy complet [facility] drochloroth ed [facility] iazide 100 Medical mg-25 mg Center Tablet cyclobenzap complet [facility] rine 10 mg ed [facility] naproxen complet [facility] 500 mg ed [facility] Cyclobenzap Cyclob 1.0 active Cyclobenz apr eCW1 rine enzapr {tabl ine HCl 10 (Saint hydrochlori ine et_at MG [facility] de 10 MG HCl 10 _bedt Medical Oral Tablet MG ime_a Practic e Cyclobenzap s_nee PC) rine HCl 10 ded} MG losartan complet [facility] 100 mg ed [facility] losartan 50 complet Saint mg Tablet [facility] atorvastati complet Saint n 20 mg ed [facility] Tablet [facility] chlorzoxazo 1 complet Saint ne 250 mg ed [facility] TabletDirec Medical tions: 1 Center tablet oral twice a day bisacodyl 5 complet [facility] mg ed [facility] (/EC) Ciprofloxac ciprof 1 complet Chidi nt in 500 MG loxaci ed [facility] Oral Tablet n HCl Medical ciprofloxac 500 mg Center in HCl 500 Tablet mg Tablet, , Ordered By: Jroge woodard By: Faviola Brantley MDDirection y s: 1 tablet Leno, oral twice MDDire a day ctions : 1 tablet oral twice a day Metronidazo metroN 1 complet Chidi nt le 500 MG IDAZOL ed [facility] Oral Tablet E 500 Medical metroNIDAZO mg Center LE 500 mg Tablet Tablet, , Ordered By: Jorge woodard By: Faviola Brantley MDDirection y s: 1 tablet Leno, oral twice MDDire a day ctions : 1 tablet oral twice a day Cyclobenzap Cyclob 1.0 active Cyclobenz apr eCW1 rine enzapr {tabl ine HCl 10 (Saint hydrochlori ine et_at MG [facility] de 10 MG HCl 10 _bedt Medical Oral Tablet MG ime_a Practic e Cyclobenzap s_nee PC) rine HCl 10 ded} MG Pramipexole Pramip 1.0 suspend Pramipex ole eCW1 Dihydrochlo exole {tabl ed Dihydrochlo r (Saint ride 0.25 Dihydr et} osbaldo 0.25 MG J osephs MG [facility] Medical osbaldo Practice 0.25 PC) MG Cyclobenzap Cyclob 1.0 active Cyclobenz apr eCW1 rine enzapr {tabl ine HCl 10 (Saint hydrochlori ine et_at MG [facility] de 10 MG HCl 10 _bedt Medical Oral Tablet MG ime_a Practic e Cyclobenzap s_nee PC) rine HCl 10 ded} MG Naproxen Naprox active Naproxen 500 eCW1 500 MG Oral en 500 MG (Saint Tablet MG [facility]) 24 HR naprox 1 complet [facility] Naproxen en ed [facility] 375 MG sodium Medical Extended 375 mg Center Release Tablet Oral Tablet , ER naproxen Multip sodium 375 hase mg Tablet, 24 hr, ER Ordere Multiphase d By: 24 hr, Sang Ordered By: Raúl Sahni, DANDREire MDDirection ctions s: 1 tablet : 1 oral twice tablet a day oral twice a day Chlorzoxazo chlorz 1 complet Chidi nt ne 250 MG oxazon ed [facility] Oral Tablet e 250 Medical chlorzoxazo mg Center ne 250 mg Tablet Tablet, , Ordered By: Jorge Rodriguez d By: Khai Olsen MDDirection Il s: 1 tablet Raúl, oral twice MDDire a day ctions : 1 tablet oral twice a day Pramipexole Pramip 1.0 suspend Pramipex ole eCW1 Dihydrochlo exole {tabl ed Dihydrochlo r (Saint ride 0.25 Dihydr et} osbaldo 0.25 MG [facility] osbaldo Practice 0.25 PC) MG Pramipexole Pramip 1.0 suspend Pramipex ole eCW1 Dihydrochlo exole {tabl ed Dihydrochlo r (Saint ride 0.25 Dihydr et} osbaldo 0.25 MG J osephs MG [facility] Medical osbaldo Practice 0.25 PC) MG Ketorolac ketoro 1 complet Saint Tromethamin lac 10 ed Xavi s e 10 MG mg Medical Oral Tablet Tablet Center ketorolac , 10 mg Ordere Tablet, d By: Ordered By: Lukas Reynolds ch MDDirection MDDire s: 1 tablet ctions oral every : 1 six hours tablet PRN pain oral every six hours PRN pain gabapentin gabape 1 complet Joellen t 300 MG Oral ntin ed [facility] Capsule 300 mg Medical gabapentin Capsul Center 300 mg e, Capsule, Ordere Ordered By: d By: Penelope Brownirection ch, s: 1 MDDire capsule ctions oral three : 1 times a day capsul e oral three times a day methylPREDN complet Saint ISolone 4 ed [facility] mg Medical tablets,dos Center e pack, Ordered By: Lukas Reynolds, MDDirection s: one row of tabs oral dizziness naproxen complet Saint 500 mg ed [facility] Tablet Medical Center losartan-hy complet [facility] ed [facility] iazide 100 Medical mg-25 mg Center Tablet Naproxen Naprox active Naproxen 500 eCW1 500 MG Oral en 500 MG (Saint Tablet MG [facility]) atorvastati complet [facility] n 20 mg ed [facility] aspirin 81 complet [facility] mg ed [facility] tablet,chew Medical able Center losartan-hy complet [facility] ed [facility] iazide 100 Medical mg-25 mg Center Tablet atorvastati Atorva 1.0 active Atorvasta tin eCW1 n 20 MG statin {tabl Calcium 20 (Sa int Oral Tablet Calciu et} MG [facility] Atorvastati m 20 Medical n Calcium MG Practice 20 MG PC) Atenolol atenol 1.00 ORAL active take 1 NEXTG EN 100 MG / ol 100 {tabl tablet by (Sa int Chlorthalid mg-chl et} oral route [facility] one 25 MG orthal every day Med ical Oral Tablet idone [place]) atenolol 25 mg 100 tablet mg-chlortha lidone 25 mg tablet gabapentin Gabape 1.0 active Gabapentin eCW1 300 MG Oral ntin {caps 300 MG (Joellen t Capsule 300 MG ule} [facility] Gabapentin Medical 300 MG Practice PC) nitrofurant complet [facility] monohyd/m-c Medical ryst 100 mg Center Capsule losartan complet [facility] 100 mg ed [facility] Tablet Medical [place] meclizine complet [facility] 25 mg ed [facility] Tablet [facility] naproxen 1 complet Saint sodium 375 ed [facility] mg Tablet, Medical ER Center Multiphase 24 hrDirection s: 1 tablet oral twice a day naproxen complet [facility] sodium 375 ed [facility] mg Tablet, Medical ER Center Multiphase 24 hr pramipexole complet [facility] 0.25 mg ed [facility] Medical [place] nitrofurant complet [facility] monohyd/-c Medical ryst 100 mg Center Capsule atorvastati Atorva 1.0 active Atorvasta tin eCW1 n 20 MG statin {tabl Calcium 20 (Sa int Oral Tablet Calciu et} MG [facility] Atorvastati m 20 Medical n Calcium MG Practice 20 MG PC) gabapentin Gabape 1.0 active Gabapentin eCW1 300 MG Oral ntin {caps 300 MG (Joellen t Capsule 300 MG ule} [facility] Gabapentin Medical 300 MG Practice PC) Meclizine Mecliz 1.0 active Meclizine e CW1 Hydrochlori ine {tabl HCl 25 MG (S aint de 25 MG HCl 25 et_as [facility] Oral Tablet MG _need Medical Meclizine ed} Practice HCl 25 MG PC) Meclizine Mecliz 1.0 active Meclizine e CW1 Hydrochlori ine {tabl HCl 25 MG (S aint de 25 MG HCl 25 et_as [facility] Oral Tablet MG _need Medical Meclizine ed} Practice HCl 25 MG PC) Naproxen Naprox active Naproxen 500 eCW1 500 MG Oral en 500 MG (Saint Tablet MG [facility] Medical Practice PC) metroNIDAZO 1 complet [facility] LE 500 mg ed [facility] tions: 1 Center tablet oral twice a day meclizine complet [facility] 25 mg ed [facility] atorvastati Atorva 1.0 active Atorvasta tin eCW1 n 20 MG statin {tabl Calcium 20 (Sa int Oral Tablet Calciu et} MG Xavi s Atorvastati m 20 Medical n Calcium MG Practice 20 MG PC) ciprofloxac 1 complet Saint in HCl 500 ed [facility] Medical TabletDirec Center tions: 1 tablet oral twice a day bisacodyl 5 complet Saint mg ed [facility] tablet,[facility] (DR/EC) losartan 50 complet Saint mg Tablet [facility] pramipexole complet Saint 0.25 mg ed [facility] atorvastati complet Saint n 20 mg ed [facility] Medical [place] losartan-hy complet Saint drochloroth ed [facility] iazide 100 Medical mg-25 mg Center Tablet hydrochloro complet [facility] thiazide 25 ed [facility] mg Tablet Medical [place] Insurance Providers Payer name Policy type Policy ID Covered Covered green party's Policy P dylan / Coverage green party ID relationship to [place] [employer] ormation type [place] MEDICARE [id number] SP [id number] 2 MEDICAID [id number] SP [id number] MEDICAID [id number] 1 [id number] [place] [id number] 1 [id number] PART B 2 DOWNSTATE M [id number] 01 [id number] W [id number] MEDICARE PART [id number] SP [id number] B 2 SELF PAY SP INSURANCE W [id number] M [id number] 01 [id number] Problems, Conditions, and Diagnoses Code Display Name Description Problem Effective Data Type Dates Source(s) M54.16 Radiculopathy, RADICULOPATHY, Problem 07/13/2020 MEDGEN ( lumbar region LUMBAR REGION 12:00:00 [facility]) I10 [id number] Essential Problem 08/06/2019 eCW1 hypertension 12:00:00 ([facility]) [id number] Pain in left foot Pain in left foot [facility] [id number] Torticollis Torticollis Problem [facility] ([facility]) [id number] Ventricular Ventricular Problem [facility] premature beats premature beats (Chidi [facility]) [id number] Bilateral knee pain Bilateral knee Problem NEXTGEN pain ([facility]) Z71.9 Counseling, COUNSELING, Diagnosis 05/24/2020 [facility] unspecified UNSPECIFIED 01:06:00 [facility] Z91.81 History of falling HISTORY OF FALLING Diagnosis 0 Saint 01:06:00 [facility] R42 Dizziness and DIZZINESS AND Diagnosis 05/24/2020 [facility] giddiness GIDDINESS 01:06:00 [facility] N60.01 Solitary cyst of SOLITARY CYST OF Diagnosis 05/24/2020 Sa int right breast RIGHT BREAST 01:06:00 [facility] 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 N60.91 Unspecified benign UNSPECIFIED BENIGN Diagnosis 0 [facility] mammary dysplasia MAMMARY DYSPLASIA 11:42:00 [facility] of right [facility] Essential (primary) ESSENTIAL Diagnosis 04/26/2020 [facility] hypertension (PRIMARY) 03:14:00 [facility] HYPERTENSION [facility] R00.2 Palpitations PALPITATIONS Diagnosis 04/26/2020 [facility] 03:14:00 [facility] Z71.89 Other specified OTHER SPECIFIED Diagnosis 04/20/2020 Joellen t counseling COUNSELING 02:21:00 [facility] Z12.31 Encounter for ENCNTR SCREEN Diagnosis 04/20/2020 [facility] screening mammogram MAMMOGRAM FOR 02:21:00 Carline sephs for malignant MALIGNANT NEOPLASM EDT Med ical neoplasm of breast OF BREAST Center Z02.9 Encounter for ENCOUNTER FOR Diagnosis 03/10/2020 [facility] administrative ADMINISTRATIVE 10:58:00 [facility] examinations, EXAMINATIONS, EDT Medical unspecified UNSPECIFIED Center R92.2 Inconclusive INCONCLUSIVE Diagnosis 03/10/2020 [facility] mammogram MAMMOGRAM 10:58:00 [facility] U07.1 COVID-19 ACUTE COVID-19 ACUTE Diagnosis 02/13/2020 [facility] RESPIRATORY DISEASE RESPIRATORY 01:35:00 [facility] phs DISEASE [facility] R63.4 Abnormal weight ABNORMAL WEIGHT Diagnosis 02/13/2020 Joellen t loss LOSS 01:35:00 [facility] M54.5 Low back pain LOW BACK PAIN Diagnosis 01/29/2020 [facility] 08:55:00 [facility] R10.9 Unspecified UNSPECIFIED Diagnosis 01/29/2020 [facility] abdominal pain ABDOMINAL PAIN 08:55:00 [facility] R10.84 Generalized GENERALIZED Diagnosis 01/29/2020 [facility] abdominal pain ABDOMINAL PAIN 08:55:00 [facility] J30.9 Allergic rhinitis, ALLERGIC RHINITIS, Diagnosis 0 [facility] unspecified UNSPECIFIED 09:54:00 [facility] E78.5 Hyperlipidemia, HYPERLIPIDEMIA, Diagnosis 01/21/2020 Joellen t unspecified UNSPECIFIED 12:48:00 [facility] N64.89 Other specified OTHER SPECIFIED Diagnosis 01/21/2020 Joellen t disorders of breast DISORDERS OF 12:48:00 Sebastián ephs BREAST [facility] E11.9 Type 2 diabetes TYPE 2 DIABETES Diagnosis 01/06/2020 Joellen t mellitus without MELLITUS WITHOUT 10:26:00 Carline sephs complications COMPLICATIONS [facility] Z01.818 Encounter for other ENCOUNTER FOR Diagnosis 01/01/2020 Sa int preprocedural OTHER 03:27:00 [facility] examination PREPROCEDURAL [facility] Medical EXAMINATION Center M54.9 Dorsalgia, DORSALGIA, Diagnosis 01/01/2020 unspecified UNSPECIFIED 03:27:00 [facility] Medical [place] N60.02 Solitary cyst of SOLITARY CYST OF Diagnosis 12/24/2019 Sa int left breast LEFT BREAST 09:27:00 [facility] M54.32 Sciatica, left side SCIATICA, LEFT Diagnosis 12/23/2019 S aint SIDE 10:39:00 [facility] M25.552 Pain in left hip PAIN IN LEFT HIP Diagnosis 12/23/2019 Sa int 10:39:00 [facility] M54.42 Lumbago with LUMBAGO WITH Diagnosis 12/15/2019 sciatica, left side SCIATICA, LEFT 08:43:00 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 OR 08:43:00 [facility] radiculopathy, RADICULOPATHY, [facility] Medica l lumbar region LUMBAR REGION Center N28.1 Cyst of kidney, CYST OF KIDNEY, Diagnosis 11/25/2019 Joellen t acquired ACQUIRED 08:56:00 [facility] K59.00 Constipation, CONSTIPATION, Diagnosis 11/18/2019 unspecified UNSPECIFIED 01:56:00 [facility] Z68.31 Body mass index BODY MASS INDEX Diagnosis 10/03/2019 Joellen t (BMI) 31.0-31.9, (BMI) 31.0-31.9, 09:20:00 Carline seph adult ADULT [facility] Z87.442 Personal history of PERSONAL HISTORY Diagnosis 10/03/2019 urinary calculi OF URINARY CALCULI 09:20:00 [facility] R06.02 Shortness of breath SHORTNESS OF Diagnosis 08/19/2019 Chidi nt BREATH 12:25:00 [facility] R94.31 Abnormal ABNORMAL Diagnosis 08/19/2019 electrocardiogram ELECTROCARDIOGRAM 12:25:00 [facility] [ECG] [EKG] (ECG) (EKG) [facility] Medical [place] N13.30 Unspecified UNSPECIFIED Diagnosis 08/05/2019 hydronephrosis HYDRONEPHROSIS 10:22:00 [facility] Medical [place] N20.0 Calculus of kidney CALCULUS OF KIDNEY Diagnosis 9 [facility] 10:22:00 [facility] Z68.30 Body mass index BODY MASS INDEX Diagnosis 08/02/2019 Joellen t (BMI) 30.0-30.9, (BMI) 30.0-30.9, 01:59:00 [facility] adult ADULT EDT Medical [place] R91.1 Solitary pulmonary SOLITARY PULMONARY Diagnosis 9 [facility] nodule NODULE 05:15:00 [facility] [place] Z23 Encounter for ENCOUNTER FOR Diagnosis 07/22/2019 [facility] immunization IMMUNIZATION 09:36:00 [facility] Z68.29 Body mass index BODY MASS INDEX Diagnosis 06/23/2019 Joellen t (BMI) 29.0-29.9, (BMI) 29.0-29.9, 08:45:00 [facility]line [facility] adult ADULT EDT Medical [place] R29.6 Repeated falls REPEATED FALLS Diagnosis 06/23/2019 [facility] 08:45:00 [facility] K57.32 Diverticulitis of DVTRCLI OF LG INT Diagnosis 06/10/2019 [facility] large intestine W/O PERFORATION OR 09:25:00 J osephs without perforation ABSCESS W/O EDT Medi melida or abscess without BLEEDING Center bleeding R73.03 Prediabetes PREDIABETES Diagnosis 05/20/2019 [facility] 02:44[facility]00 [facility] [place] R10.32 Left lower quadrant LEFT LOWER Diagnosis 05/20/2019 [facility] pain QUADRANT PAIN 02:44:00 [facility] [place] Y99.8 Other external OTHER EXTERNAL Diagnosis 03/31/2019 cause status CAUSE STATUS 06:28:00 [facility] Y92.[address] IN Diagnosis 03/31/2019 Joellen t in apartment as the APARTMENT PLACE 06:28:[address] [facility] [address] of occurrence EDT Medic al of the external Center cause Y93.9 Activity, ACTIVITY, Diagnosis 03/31/2019 [facility] unspecified UNSPECIFIED 06:28:00 [facility] Medical [place] W01.0XXA Fall on same level FALL SAME LEV FROM Diagnosis 9 [facility] from slipping, SLIP/TRIP W/O 06:28:00 [facility] tripping and STRIKE AGAINST AM EDT Medical stumbling without OBJECT, INIT Chanellee r subsequent striking against object, initial encounter M79.643 Pain in unspecified PAIN IN Diagnosis 11/14/2018 [facility] hand UNSPECIFIED HAND 11:16:00 [facility] R26.2 Difficulty in DIFFICULTY IN Diagnosis 11/14/2018 [facility] walking, not WALKING, NOT 11:16:00 [facility] Medical classified CLASSIFIED Center M25.562 Pain in left knee PAIN IN LEFT KNEE Diagnosis 11/14/2018 [facility] 11:16:00 [facility] Center M25.561 Pain in right knee PAIN IN RIGHT KNEE Diagnosis 9 [facility] 11:16:00 [facility] Center Diagnosis NEXTGEN ([facility]) Diagnosis NEXTGEN ([facility]) Diagnosis NEXTGEN ([facility]) Diagnosis NEXTGEN ([facility]) Diagnosis NEXTGEN ([facility]) Diagnosis NEXTGEN ([facility]) Diagnosis NEXTGEN ([facility]) Diagnosis NEXTGEN ([facility]) Diagnosis NEXTGEN ([facility]) Diagnosis NEXTGEN ([facility]) Surgeries/Procedures Procedure Description Date Indications Data Source(s) Documentation of current 07/13/2020 MED GEN ([facility] medications (procedure) 12:00:00 AM EDT EITAN Zelaya) Documentation of current 07/13/2020 MED GEN ([facility]'s medications (procedure) 12:00:00 AM EDT EITAN Zelaya) Documentation of current 07/13/2020 MED GEN ([facility] medications (procedure) 12:00:00 AM EDT EITAN Zelaya) OFFICE/OUTPATIENT VISIT, 05/24/2020 NEX TGEN (Saint EST 12:00:00 AM EDT [facility] - 05/24/2020 [place]) 12:00:00 AM EDT OFFICE/OUTPATIENT VISIT, 04/20/2020 NEX TGEN ([facility] EST 12:00:00 AM EDT [facility] - 04/20/2020 [place]) 12:00:00 AM EDT OFFICE/OUTPATIENT VISIT, 03/10/2020 NEX TGEN ([facility] EST 12:00:00 AM EDT [facility] - 03/10/2020 [place]) 12:00:00 AM EDT PHONE E/M BY PHYS 11-20 01/28/2020 NEXT GEN (Saint MIN 12:00:00 AM EDT [facility] - 01/28/2020 Center) 12:00:00 AM EDT OFFICE/OUTPATIENT VISIT, 01/06/2020 NEX TGEN ([facility] EST 12:00:00 AM EDT [facility] - 01/06/2020 Center) 12:00:00 AM EDT OFFICE/OUTPATIENT VISIT, 01/01/2020 NEX TGEN ([facility] EST 12:00:00 AM EST [facility] - 01/01/2020 Center) 12:00:00 AM EST OFFICE/OUTPATIENT VISIT, 12/24/2019 NEX TGEN ([facility] EST 12:00:00 AM EST [facility] - 12/24/2019 Center) 12:00:00 AM EST OFFICE/OUTPATIENT VISIT, 12/16/2019 NEX TGEN ([facility] EST 12:00:00 AM EST [facility] - 12/16/2019 Center) 12:00:00 AM EST OFFICE/OUTPATIENT VISIT, 12/06/2019 NEX TGEN ([facility] EST 12:00:00 AM EST [facility] - 12/06/2019 Center) 12:00:00 AM EST OFFICE/OUTPATIENT VISIT, 11/18/2019 NEX TGEN ([facility] EST 12:00:00 AM EST [facility] - 11/18/2019 Center) 12:00:00 AM EST OFFICE/OUTPATIENT VISIT, 10/03/2019 NEX TGEN ([facility] EST 12:00:00 AM EST [facility] - 10/03/2019 Center) 12:00:00 AM EST OFFICE/OUTPATIENT VISIT, 08/02/2019 NEX TGEN ([facility] EST 12:00:00 AM EDT [facility] - 08/02/2019 Center) 12:00:00 AM EDT OFFICE/OUTPATIENT VISIT, 07/29/2019 NEX TGEN ([facility] EST 12:00:00 AM EDT [facility] - 07/29/2019 Center) 12:00:00 AM EDT Pneumococcal (PCV13) 07/22/2019 NEXTGE N ([facility] 12:00:00 AM EDT [facility] - 07/22/2019 Center) 12:00:00 AM EDT Immunization 07/22/2019 NEXTGEN ([facility] 12:00:00 AM EDT [facility] - 07/22/2019 Center) 12:00:00 AM EDT Influenza, Injectable, 3 07/22/2019 NEX TGEN ([facility] 12:00:00 AM EDT [facility] - 07/22/2019 Center) 12:00:00 AM EDT Immunization 07/22/2019 NEXTGEN ([facility] 12:00:00 AM EDT [facility] - 07/22/2019 Center) 12:00:00 AM EDT OFFICE/OUTPATIENT VISIT, 07/22/2019 NEX TGEN ([facility] EST 12:00:00 AM EDT [facility] - 07/22/2019 Center) 12:00:00 AM EDT OFFICE/OUTPATIENT VISIT, 06/23/2019 NEX TGEN ([facility] EST 12:00:00 AM EDT [facility] - 06/23/2019 Center) 12:00:00 AM EDT OFFICE/OUTPATIENT VISIT, 06/10/2019 NEX TGEN ([facility] EST 12:00:00 AM EDT [facility] - 06/10/2019 Center) 12:00:00 AM EDT OFFICE/OUTPATIENT VISIT, 06/04/2019 NEX TGEN ([facility] EST 12:00:00 AM EDT [facility] - 06/04/2019 Center) 12:00:00 AM EDT OFFICE/OUTPATIENT VISIT, 05/20/2019 NEX TGEN ([facility] EST 12:00:00 AM EDT [facility] - 05/20/2019 Center) 12:00:00 AM EDT OFFICE/OUTPATIENT VISIT, 01/22/2019 NEX TGEN ([facility] EST 12:00:00 AM EDT [facility] - 01/22/2019 Center) 12:00:00 AM EDT OFFICE/OUTPATIENT VISIT, 10/30/2018 NEX TGEN ([facility] EST 12:00:00 AM EST [facility] - 10/30/2018 Center) 12:00:00 AM EST OFFICE/OUTPATIENT VISIT, 08/14/2018 NEX TGEN ([facility] EST 12:00:00 AM EDT [facility] - 08/14/2018 Center) 12:00:00 AM EDT OFFICE/OUTPATIENT VISIT, 07/09/2018 NEX TGEN ([facility] EST 12:00:00 AM EDT [facility] - 07/09/2018 Center) 12:00:00 AM EDT OFFICE/OUTPATIENT VISIT, 04/22/2018 NEX TGEN ([facility] EST 12:00:00 AM EDT [facility] - 04/22/2018 Center) 12:00:00 AM EDT OFFICE/OUTPATIENT VISIT, 03/11/2018 NEX TGEN ([facility] EST 12:00:00 AM EDT [facility] - 03/11/2018 Center) 12:00:00 AM EDT TDAP VACCINE >7 IM 02/25/2018 NEXTGEN ( [facility] 12:00:00 AM EDT [facility] - 02/25/2018 Center) 12:00:00 AM EDT Immunization 02/25/2018 NEXTGEN ([facility] 12:00:00 AM EDT [facility] dical - 02/25/2018 Center) 12:00:00 AM EDT OFFICE/OUTPATIENT VISIT, 02/25/2018 NEX TGEN ([facility] NEW 12:00:00 AM EDT [facility] - 02/25/2018 Center) 12:00:00 AM EDT Results ID Date Data Source [id number] 07/19/2020 10:50:00 AM EDT [facility] Name Value Range Interpretation Description Data Sup porting Code Source(s) Document(s ) SARS [facility] coronavirus 2 RNA This lab was ordered by [facility] and reported by [facility]. ID Date Data Source GFR(Creatinine).[id number] 05/27/2020 12:45:[address] [facility] 0-0400 Name Value Range Interpretation Code Description Data Hoa rce(s) Supporting Document(s ) UNK > 60 Below low normal <content [facility] styleCode="Bold"> Medical Cent er EGFR </content>47 GFR L<content styleCode="Italic s"> (> 60 GFR)</content> ID Date Data Source [id number] 05/27/2020 12:45:00 PM EDT [facility] Name Value Range Interpretation Description Data Sup porting Code Source(s) Document(s ) Potassium 3.5-5.3 <content [facility] [Moles/volume] styleCode="Sandra Apollo in Serum or d">Potassium Medical Plasma </content>4.4 Center MEQ/L<content styleCode="Shi lics"> (3.5-5.3 MEQ/L)</conten t> Sodium 137-145 <content [facility] [Moles/volume] styleCode="Sandra Apollo in Serum or d">Sodium Medical Plasma </content>141 Center MEQ/L<content styleCode="Shi lics"> (137-145 MEQ/L)</conten t> UNK 7-17 Above high normal <content [facility] styleCode="Sandra Apollo d">BUN Medical </content>22 Center MG/DL H<content styleCode="Shi lics"> (7-17 MG/DL)</conten t> Creatinine 0.5-1.3 <content [facility] [Mass/volume] styleCode="Sandra Apollo in Serum or d">Creatinine Medical Plasma </content>1.2 Center MG/DL<content styleCode="Shi lics"> (0.5-1.3 MG/DL)</conten t> Carbon 22-30 <content [facility] dioxide, total styleCode="Sandra Apollo [Moles/volume] d">Carbon Medical in Serum or Dioxide Center Plasma </content>28 MEQ/L<content styleCode="Shi lics"> (22-30 MEQ/L)</conten t> Chloride 98-107 <content [facility] [Moles/volume] styleCode="Sandra Apollo in Serum or d">Chloride Medical Plasma </content>106 Center MEQ/L<content styleCode="Shi lics"> (98-107 MEQ/L)</conten t> UNK > 60 Below low normal <content [facility] styleCode="Sandra Apollo d">EGFR Medical </content>47 Center GFR L<content styleCode="Shi lics"> (> 60 GFR)</content> Glucose 74-106 <content [facility] [Mass/volume] styleCode="Sandra Apollo in Serum or d">Glucose Medical Plasma </content>95 Center MG/DL<content styleCode="Shi lics"> (74-106 MG/DL)</conten t> Calcium 8.4-10.2 <content [facility] [Mass/volume] styleCode="Sandra Apollo in Serum or d">Calcium Medical Plasma </content>10.0 Center MG/DL<content styleCode="Shi lics"> (8.4-10.2 MG/DL)</conten t> ID Date Data Source [id number] 05/27/2020 12:45:00 PM EDT NEXTG EN ([facility] [id number] [place]) Name Value Range Interpretation Code Description Data Supporting Source(s) Document(s ) 4.4 MEQ/L 3.5-5.3 POTASSIUM [facility] ([facility]) 141 MEQ/L 137-145 SODIUM [facility] ([facility]) 28 MEQ/L 22-30 CARBON DIOXIDE [facility] ([facility]) 106 MEQ/L 98-107 CHLORIDE [facility] ([facility]) 47 GFR > 60 Below low normal eGFR [facility] ([facility]) Estimated GFR is calculated using the Mo dification of Diet in RenalDisease (MDRD) Study equation, and normalized to 1.73m2 body surfce area.The MDRD study equation should only be used in individuals age 1 8 orolder. It has not been validated for the following: women,patients with serious comorbid conditions, or on certain medications, orpersons with extremes of body size, muscle mass, or nutritional status.

22 MG/DL 7-17 Above high normal [facility]) 10.0 MG/DL 8.4-10.2 CALCIUM [facility] ([facility]) 95 MG/DL 74-106 GLUCOSE [facility]) 1.2 MG/DL 0.5-1.3 CREATININE [facility] ([facility]) ID Date Data Source [id number] 05/27/2020 12:45:00 PM EDT NEXTG EN ([facility] [id number] [place]) Name Value Range Interpretation Code Description Data Hoa rce(s) Supporting Document(s ) 4.4 MEQ/L 3.5-5.3 POTASSIUM [facility] ([facility]) 141 MEQ/L 137-145 SODIUM [facility] ([facility]) 106 MEQ/L 98-107 CHLORIDE [facility] ([facility]) 47 GFR > 60 Below low normal eGFR [facility] ([facility]) Estimated GFR is calculated using the Mo dification of Diet in RenalDisease (MDRD) Study equation, and normalized to 1.73m2 body surfce area.The MDRD study equation should only be used in individuals age 1 8 orolder. It has not been validated for the following: women,patients with serious comorbid conditions, or on certain medications, orpersons with extremes of body size, muscle mass, or nutritional status.

28 MEQ/L 22-30 CARBON DIOXIDE [facility] ([facility]) 22 MG/DL 7-17 Above high normal BUN [facility] ([facility]) 10.0 MG/DL 8.4-10.2 CALCIUM [facility] ([facility]) 1.2 MG/DL 0.5-1.3 CREATININE [facility] ([facility]) 95 MG/DL 74-106 GLUCOSE [facility] ([facility]) ID Date Data Source [id number] 04/21/2020 09:09:00 AM EDT [facility] Name Value Range Interpretation Description Data Sup porting Code Source(s) Document(s ) Thyrotropin 0.465-4. <content [facility] [Units/volume] 68 styleCode="Sandra Apollo in Serum or d">Thyroid Medical Plasma by [facility] Detection Hormone limit <= 0.05 </content>1.35 mIU/L MIU/L<content styleCode="Shi lics"> (0.465-4.68 MIU/L)</conten t> ID Date Data Source [id number] 04/21/2020 09:09:00 AM EDT [facility] ([facility] [id number] [place]) Name Value Range Interpretation Code Description Data Hoa rce(s) Supporting Document(s ) 1.35 MIU/L 0.465-4.68 TSH [facility]) ID Date Data Source [id number] 01/29/2020 11:16:00 AM EDT [facility] Name Value Range Interpretation Description Data Sup porting Code Source(s) Document(s ) Potassium 3.5-5.3 <content [facility] [Moles/volume styleCode="Sandra Apollo ] in Serum or d">Potassium Medical Plasma </content>3.7 Center MEQ/L<content styleCode="Shi lics"> (3.5-5.3 MEQ/L)</conten t> ID Date Data Source [id number] 01/29/2020 10:41:00 AM EDT [facility] Name Value Range Interpretation Description Data Sup porting Code Source(s) Document(s ) Potassium <content [facility] [Moles/volume styleCode="Bold Medical ] in Serum or ">Potassium Center Plasma </content>Test not performed. MEQ/L (Reference Range: not available)
ID Date Data Source CHMROUTINECCDA.[id number] 01/29/2020 10:06:[address] [facility] -0400 Name Value Range Interpretation Description Data Sup porting Code Source(s) Document(s ) Lactate 0.7-2.0 <content [facility] [Mass/volum styleCode="Bold Medical e] in Serum ">Lactic Acid Center or Plasma </content>1.5 MMOLL<content styleCode="Ital ics"> (0.7-2.0 MMOLL)</content > ID Date Data Source [id number] 01/29/2020 10:00:[address] [facility] 0 Name Value Range Interpretation Description Data Sup porting Code Source(s) Document(s ) Color of Urine YELLOW <content [facility] styleCode="Sandra Apollo d">Color, Medical Urine Center </content>YELL OW <content styleCode="Shi lics"> (YELLOW )</content> UNK CLEAR <content [facility] styleCode="Sandra Apollo d">Urine Medical Clarity Center </content>CAL R <content styleCode="Shi lics"> (CLEAR )</content> Ketones NEGATIVE <content [facility] [Mass/volume] styleCode="Sandra Apollo in Urine by d">Urine Medical Test strip Ketone Center </content>NEGA TIVE MG/DL<content styleCode="Shi lics"> (NEGATIVE MG/DL)</conten t> UNK NEGATIVE <content [facility] styleCode="Sandra Apollo d">Urine Medical Bilirubin Center </content>NEGA TIVE <content styleCode="Shi lics"> (NEGATIVE )</content> Specific 1.015-1.02 <content [facility] gravity of 5 styleCode="Sandra [place] Urine by Test d">Urine Medical strip Specific Center [place] </content>1.02 0 <content styleCode="Shi lics"> (1.015-1.025 )</content> Glucose NEGATIVE <content [facility] [Mass/volume] styleCode="Sandra [place] in Urine by d">Urine Medical Test strip Glucose Center </content>NEGA TIVE MG/DL<content styleCode="Shi lics"> (NEGATIVE MG/DL)</conten t> pH of Urine by 4.5-8.0 <content [facility] Test strip styleCode="Sandra Hurleys d">Urine pH Medical </content>6.5 Center <content styleCode="Shi lics"> (4.5-8.0 )</content> Hemoglobin NEGATIVE <content [facility] [Presence] in styleCode="Sandra [place] Urine by Test d">Urine Blood Medical strip </content>NEGA Center TIVE <content styleCode="Shi lics"> (NEGATIVE )</content> Nitrite NEGATIVE <content [facility] [Presence] in styleCode="Sandra [place] Urine by Test d">Urine Medical strip Nitrite Center </content>NEGA TIVE <content styleCode="Shi lics"> (NEGATIVE )</content> Urobilinogen 0.2-1.0 <content [facility] [Units/volume] styleCode="Sandra [place] in Urine by d">Urine Medical Test strip Urobilinogen Center </content>0.2 MG/DL<content styleCode="Shi lics"> (0.2-1.0 MG/DL)</conten t> Leukocyte NEGATIVE <content [facility] esterase styleCode="Sandra Apollo [Presence] in d">Urine Medical Urine by Test Leukocyte Center strip </content>NEGA TIVE <content styleCode="Shi lics"> (NEGATIVE )</content> Protein NEGATIVE <content [facility] [Mass/volume] styleCode="Sandra [place] in Urine by d">Urine Medical Test strip Protein Center </content>NEGA TIVE MG/DL<content styleCode="Shi lics"> (NEGATIVE MG/DL)</conten t> ID Date Data Source Liver 01/29/2020 10:00:00 AM EDT [facility] Profile.[id number] Name Value Range Interpretation Description Data Sup porting Code Source(s) Document(s ) Aspartate 14-36 Above high <content [facility] aminotransferase normal styleCode="Bold"> [facility] hs [Enzymatic Aspartate Medical activity/volume] Aminotransferase Center in Serum or Plasma (AST) </content>51 IU/L H<content styleCode="Italic s"> (14-36 IU/L)</content> Alanine 7-30 Above high <content [facility] aminotransferase normal styleCode="Bold"> [facility] hs [Enzymatic Alanine Medical activity/volume] Aminotransferase Center in Serum or Plasma (ALT) </content>47 IU/L H<content styleCode="Italic s"> (7-30 IU/L)</content> Albumin 3.5-5.0 <content [facility] [Mass/volume] in styleCode="Bold"> [facility] hs Serum or Plasma Albumin Medical </content>3.9 Center G/DL<content styleCode="Italic s"> (3.5-5.0 G/DL)</content> Alkaline 38-126 <content [facility] phosphatase styleCode="Bold"> [facility] [Enzymatic Alkaline Medical activity/volume] Phosphatase (ALP) Cente r in Serum or Plasma </content>50 IU/L<content styleCode="Italic s"> (38-126 IU/L)</content> Bilirubin.total 0.2-1.3 <content [facility] [Mass/volume] in styleCode="Bold"> [facility] hs Serum or Plasma Bilirubin Total Medical </content>0.5 Center MG/DL<content styleCode="Italic s"> (0.2-1.3 MG/DL)</content> ID Date Data Source HematologyRou.[id number] 01/29/2020 10:00:00 AM EDT [facility] 0400 Name Value Range Interpretation Description Data Sup porting Code Source(s) Document(s ) Hematocrit 36.0-46. Below low normal <content [facility] [Volume 0 styleCode="Bold [facility] Fraction] of ">Hematocrit Medical Blood by </content>34.0 Center Automated count % L<content styleCode="Ital ics"> (36.0-46.0 %)</content> Hemoglobin 12.3-16. Below low normal <content [facility] [Mass/volume] in 0 styleCode="Bold Apollo Blood ">Hemoglobin Medical </content>11.2 Center G/DL L<content styleCode="Ital ics"> (12.3-16.0 G/DL)</content> Erythrocytes 4.0-5.1 Below low normal <content [facility] [#/volume] in styleCode="Bold [facility] Blood by ">Red Blood Medical Automated count Cell Count Center </content>3.44 MCUMM L<content styleCode="Ital ics"> (4.0-5.1 MCUMM)</content > Leukocytes 4.4-11.0 <content [facility] [#/volume] in styleCode="Bold Apollo Blood by ">White Blood Medical Automated count Cell Count Center </content>5.85 KCUMM<content styleCode="Ital ics"> (4.4-11.0 KCUMM)</content > Erythrocyte mean 26.0-34. <content [facility] corpuscular 0 styleCode="Bold Apollo hemoglobin ">Mean Medical [Entitic mass] Corposcular Center by Automated Hemoglobin count </content>32.6 PG<content styleCode="Ital ics"> (26.0-34.0 PG)</content> Erythrocyte mean 80.0-100 <content [facility] corpuscular .0 styleCode="Bold [facility] volume [Entitic ">Mean Medical volume] by Corpuscular Center Automated count Volume </content>98.8 FL<content styleCode="Ital ics"> (80.0-100.0 FL)</content> Erythrocyte mean 32.0-37. <content [facility] corpuscular 0 styleCode="Bold Apollo hemoglobin ">Mean Corpus. Medical concentration Hgb Center [Mass/volume] by Concentration Automated count (MCHC) </content>32.9 G/DL<content styleCode="Ital ics"> (32.0-37.0 G/DL)</content> Platelet mean 8.0-11.0 <content [facility] volume [Entitic styleCode="Bold Apollo volume] in Blood ">Mean Platelet Medical by Automated Volume Center count </content>9.3 FL<content styleCode="Ital ics"> (8.0-11.0 FL)</content> Erythrocyte 11.5-14. Above high <content [facility] distribution 5 normal styleCode="Bold Apollo width [Ratio] by ">Red Cell Medical Automated count Distribution Center Width </content>15.1 % H<content styleCode="Ital ics"> (11.5-14.5 %)</content> Neutrophils 36-66 Above high <content [facility] [#/volume] in normal styleCode="Bold Apollo Blood by ">Neutrophil Medical Automated count </content>75.6 Center % H<content styleCode="Ital ics"> (36-66 %)</content> Platelets 130-400 <content [facility] [#/volume] in styleCode="Bold Apollo Blood by ">Platelet Medical Automated count Count Center </content>344 KCUMM<content styleCode="Ital ics"> (130-400 KCUMM)</content > UNK 1.0-4.8 Below low normal <content [facility] styleCode="Bold Apollo ">Lymphocyte Medical Count Center </content>0.97 KCUMM L<content styleCode="Ital ics"> (1.0-4.8 KCUMM)</content > Lymphocytes 24.0-44. Below low normal <content [facility] [#/volume] in 0 styleCode="Bold Apollo Blood by ">Lymphocyte Medical Automated count </content>16.6 Center % L<content styleCode="Ital ics"> (24.0-44.0 %)</content> Monocytes 3.0-10.0 <content [facility] [#/volume] in styleCode="Bold Apollo Blood by ">Monocyte Medical Automated count </content>6.8 Center %<content styleCode="Ital ics"> (3.0-10.0 %)</content> UNK 1.6-7.3 <content [facility] styleCode="Bold Apollo ">Neutrophil Medical Count Center </content>4.42 KCUMM<content styleCode="Ital ics"> (1.6-7.3 KCUMM)</content > Basophils 0.0-1.0 <content [facility] [#/volume] in styleCode="Bold Apollo Blood by ">Basophil Medical Automated count </content>0.3 Center %<content styleCode="Ital ics"> (0.0-1.0 %)</content> UNK 0.2-0.9 <content [facility] styleCode="Bold Apollo ">Monocyte Medical Count Center </content>0.40 KCUMM<content styleCode="Ital ics"> (0.2-0.9 KCUMM)</content > Eosinophils 0-5.0 <content [facility] [#/volume] in styleCode="Bold Apollo Blood by ">Eosinophil Medical Automated count </content>0.2 Center %<content styleCode="Ital ics"> (0-5.0 %)</content> UNK 0.0-0.6 <content [facility] styleCode="Bold Apollo ">Eosinophil Medical Count Center </content>0.01 KCUMM<content styleCode="Ital ics"> (0.0-0.6 KCUMM)</content > UNK 0 <content [facility] styleCode="Bold Apollo ">Nucleated Red Medical Blood Cell Center </content>0.0 /100<content styleCode="Ital ics"> (0 /100)</content> UNK 0.0 <content [facility] styleCode="Bold Apollo ">Nucleated Red Medical Blood Cell Center Count </content>0.00 KCUMM<content styleCode="Ital ics"> (0.0 KCUMM)</content > UNK 0.0-0.3 <content [facility] styleCode="Bold Apollo ">Basophil Medical Count Center </content>0.02 KCUMM<content styleCode="Ital ics"> (0.0-0.3 KCUMM)</content > UNK < 1 <content [facility] styleCode="Bold Apollo ">Immature Medical Granulocyte Center Ratio </content>0.5 %<content styleCode="Ital ics"> (< 1 %)</content> UNK 0-0.1 <content [facility] styleCode="Bold Apollo ">Immature Medical Granulocyte Center Count </content>0.03 KCUMM<content styleCode="Ital ics"> (0-0.1 KCUMM)</content > ID Date Data Source GFR(Creatinine).[id number] 01/29/2020 10:00:[address] [facility] 0-0400 Name Value Range Interpretation Code Description Data Hoa rce(s) Supporting Document(s ) UNK > 60 <content [facility] styleCode="Bold"> Medical Cent er EGFR </content>87 GFR<content styleCode="Italic s"> (> 60 GFR)</content> ID Date Data Source CHMROUTINECCDA.[id number] 01/29/2020 10:00:[address] [facility] -0400 Name Value Range Interpretation Description Data Sup porting Code Source(s) Document(s ) UNK >= 1.0 <content [facility] styleCode="Bold Medical ">AG Ratio Center </content>1.2 <content styleCode="Ital ics"> (>= 1.0 )</content> Lipase 23-300 <content [facility] [Enzymatic styleCode="Bold Medical activity/vo ">Lipase Center lume] in </content>158 Serum or IU/L<content Plasma styleCode="Ital ics"> (23-300 IU/L)</content> UNK 2.3-3.5 <content [facility] styleCode="Bold Medical ">Globulin Center </content>3.3 G/DL<content styleCode="Ital ics"> (2.3-3.5 G/DL)</content> Protein 6.3-8.2 <content [facility] [Mass/volum styleCode="Bold Medical e] in Serum ">Total Protein Center or Plasma </content>7.2 G/DL<content styleCode="Ital ics"> (6.3-8.2 G/DL)</content> ID Date Data Source [facility].[id number] 01/29/2020 10:00:00 AM EDT [facility] Name Value Range Interpretation Description Data Sup porting Code Source(s) Document(s ) Sodium 137-145 <content [facility] [Moles/volume] in styleCode="Bold"> [facility] phs Serum or Plasma Sodium Medical </content>137 Center MEQ/L<content styleCode="Italic s"> (137-145 MEQ/L)</content> Potassium <content [facility] [Moles/volume] in styleCode="Bold"> [facility] phs Serum or Plasma Potassium Medical </content>Test Center not performed. MEQ/L (Reference Range: not available)
Chloride 98-107 <content [facility] [Moles/volume] in styleCode="Bold"> Titus phs Serum or Plasma Chloride Medical </content>103 Center MEQ/L<content styleCode="Italic s"> (98-107 MEQ/L)</content> Carbon dioxide, 22-30 <content [facility] total styleCode="Bold"> [place] [Moles/volume] in Carbon Dioxide Medical Serum or Plasma </content>27 Center MEQ/L<content styleCode="Italic s"> (22-30 MEQ/L)</content> UNK 7-17 <content [facility] styleCode="Bold"> Apollo BUN </content>16 Medical MG/DL<content Center styleCode="Italic s"> (7-17 MG/DL)</content> Creatinine 0.5-1.3 <content [facility] [Mass/volume] in styleCode="Bold"> [facility] hs Serum or Plasma Creatinine Medical </content>0.7 Center MG/DL<content styleCode="Italic s"> (0.5-1.3 MG/DL)</content> Alanine 7-30 Above high <content [facility] aminotransferase normal styleCode="Bold"> [facility] hs [Enzymatic Alanine Medical activity/volume] Aminotransferase Center in Serum or Plasma (ALT) </content>47 IU/L H<content styleCode="Italic s"> (7-30 IU/L)</content> Calcium 8.4-10. <content [facility] [Mass/volume] in 2 styleCode="Bold"> [facility] hs Serum or Plasma Calcium Medical </content>9.7 Center MG/DL<content styleCode="Italic s"> (8.4-10.2 MG/DL)</content> Glucose 74-106 <content [facility] [Mass/volume] in styleCode="Bold"> [facility] hs Serum or Plasma Glucose Medical </content>103 Center MG/DL<content styleCode="Italic s"> (74-106 MG/DL)</content> Aspartate 14-36 Above high <content [facility] aminotransferase normal styleCode="Bold"> [facility] hs [Enzymatic Aspartate Medical activity/volume] Aminotransferase Center in Serum or Plasma (AST) </content>51 IU/L H<content styleCode="Italic s"> (14-36 IU/L)</content> UNK > 60 <content [facility] styleCode="Bold"> Apollo EGFR </content>87 Medical GFR<content Center styleCode="Italic s"> (> 60 GFR)</content> Alkaline 38-126 <content [facility] phosphatase styleCode="Bold"> [facility] [Enzymatic Alkaline Medical activity/volume] Phosphatase (ALP) Cente r in Serum or Plasma </content>50 IU/L<content styleCode="Italic s"> (38-126 IU/L)</content> Albumin 3.5-5.0 <content [facility] [Mass/volume] in styleCode="Bold"> [facility] hs Serum or Plasma Albumin Medical </content>3.9 Center G/DL<content styleCode="Italic s"> (3.5-5.0 G/DL)</content> Bilirubin.total 0.2-1.3 <content [facility] [Mass/volume] in styleCode="Bold"> [facility] hs Serum or Plasma Bilirubin Total Medical </content>0.5 Center MG/DL<content styleCode="Italic s"> (0.2-1.3 MG/DL)</content> ID Date Data Source [id number] 01/01/2020 05:30:00 PM EST [facility] EN ([facility] [id number] [place]) Name Value Range Interpretation Code Description Data Supporting Source(s) Document(s ) 141 MEQ/L 137-145 SODIUM [facility] ([facility]) 5.1 MEQ/L 3.5-5.3 POTASSIUM [facility] ([facility]) 105 MEQ/L 98-107 CHLORIDE [facility] ([facility]) 28 MEQ/L 22-30 CARBON DIOXIDE [facility] ([facility]) 3.3 G/DL 2.3-3.5 GLOBULIN [facility] ([facility]) 1.3 >= 1.0 AG RATIO [facility]) 7.6 G/DL 6.3-8.2 TOTAL PROTEIN [facility]) 4.3 G/DL 3.5-5.0 ALBUMIN [facility]) 32 IU/L 7-30 Above high normal ALT [facility]) 34 IU/L 14-36 AST (GOT) [facility]) 85 IU/L 38-126 ALP [facility] ([facility]) 65 GFR > 60 eGFR [facility]) Estimated GFR is calculated using the Mo dification of Diet in RenalDisease (MDRD) Study equation, and normalized to 1.73m2 body surfce area.The MDRD study equation should only be used in individuals age 1 8 orolder. It has not been validated for the following: women,patients with serious comorbid conditions, or on certain medications, orpersons with extremes of body size, muscle mass, or nutritional status.

10.3 MG/DL 8.4-10.2 Above high normal CALCIUM [facility] ([facility]) 0.9 MG/DL 0.5-1.3 CREATININE [facility] ([facility]) 28 MG/DL 7-17 Above high normal BUN [facility] ([facility]) 116 MG/DL 74-106 Above high normal GLUCOSE [facility] ([facility]) 0.2 MG/DL 0.2-1.3 BILI, TOTAL [facility] ([facility]) 5.1 MEQ/L 3.5-5.3 POTASSIUM [facility] ([facility]) 141 MEQ/L 137-145 SODIUM [facility] ([facility]) 28 MEQ/L 22-30 CARBON DIOXIDE [facility] ([facility]) 105 MEQ/L 98-107 CHLORIDE [facility] ([facility]) 4.3 G/DL 3.5-5.0 ALBUMIN [facility] ([facility]) 7.6 G/DL 6.3-8.2 TOTAL PROTEIN [facility] ([facility]) 1.3 >= 1.0 AG RATIO [facility] ([facility]) 3.3 G/DL 2.3-3.5 GLOBULIN [facility] ([facility]) 32 IU/L 7-30 Above high normal ALT [facility] ([facility]) 34 IU/L 14-36 AST (GOT) [facility] ([facility]) 65 GFR > 60 eGFR [facility] ([facility]) Estimated GFR is calculated using the Mo dification of Diet in RenalDisease (MDRD) Study equation, and normalized to 1.73m2 body surfce area.The MDRD study equation should only be used in individuals age 1 8 orolder. It has not been validated for the following: women,patients with serious comorbid conditions, or on certain medications, orpersons with extremes of body size, muscle mass, or nutritional status.

85 IU/L 38-126 ALP [facility] ([facility]) 28 MG/DL 7-17 Above high normal BUN [facility] ([facility]) 10.3 MG/DL 8.4-10.2 Above high normal CALCIUM [facility] ([facility]) 0.2 MG/DL 0.2-1.3 BILI, TOTAL [facility] ([facility]) 116 MG/DL 74-106 Above high normal [facility]SE [facility]) 0.9 MG/DL 0.5-1.3 CREATININE [facility] ([facility]) ID Date Data Source [id number] 01/01/2020 05:30:00 PM EST [facility] ([facility] [id number] [place]) Name Value Range Interpretation Code Description Data Hoa rce(s) Supporting Document(s ) 10.6 SEC 9.0-13.0 PT [facility] ([facility]) 0.95 # 0.80-1.20 INR [facility] ([facility]) [employer] REC OMMENDS USE OF THE INR FORMONITORING ORAL ANTICOAGULANT THERAPY. INR OF 2.0 - 3.0 IS RECOMMENDEDFOR ALL CONDITIONS WITH THE EXEPTION OF PATIENTS ANTICOAGULATED FOR THROMBOTIC COMPLICATIONS OF MECHANICAL HEART VALVE FOR WHICH AN INR OF2.5 - 3.5 IS RE COMMENDED.

0.95 # 0.80-1.20 INR [facility] ([facility]) [employer] REC OMMEN[employer] USE OF THE INR FORMONITORING ORAL ANTICOAGULANT THERAPY. INR OF 2.0 - 3.0 IS RECOMMENDEDFOR ALL CONDITIONS WITH THE EXEPTION OF PATIENTS ANTICOAGULATED FOR THROMBOTIC COMPLICATIONS OF MECHANICAL HEART VALVE FOR WHICH AN INR OF2.5 - 3.5 IS RE COMMENDED.

10.6 SEC 9.0-13.0 PT [facility] ([facility]) ID Date Data Source [id number] 01/01/2020 05:30:00 PM EST [facility] ([facility] [id number] [place]) Name Value Range Interpretation Code Description Data Hoa rce(s) Supporting Document(s ) 31.9 SEC 25.1-36.5 PTT [facility] ([facility]) Heparin therapeutic range is 55 sec to 87 secReccommended therapeutic range for Argatroban is 1.5 to 3 times base lineAP TT,and for Refludan is 1.5 TO 2.5 times baseline APTT.

31.9 SEC 25.1-36.5 PTT [facility] ([facility]) Heparin therapeutic range is 55 sec to 87 secReccommended therapeutic range for Argatroban is 1.5 to 3 times base lineAP TT,and for Refludan is 1.5 TO 2.5 times baseline APTT.

ID Date Data Source [id number] 01/01/2020 05:30:00 PM EST [facility] ([facility] [id number] [place]) Name Value Range Interpretation Description Data Sup porting Code Source(s) Document(s ) 141 MEQ/L 137-145 SODIUM [facility] ([facility]) 105 MEQ/L 98-107 CHLORIDE [facility] ([facility]) 28 MEQ/L 22-30 CARBON DIOXIDE [facility] ([facility]) 7.6 G/DL 6.3-8.2 TOTAL PROTEIN [facility] ([facility]) 4.3 G/DL 3.5-5.0 ALBUMIN [facility] ([facility]) 85 IU/L 38-126 ALP [facility]) 34 IU/L 14-36 AST (GOT) [facility] ([facility]) 32 IU/L 7-30 Above high normal ALT [facility] ([facility]) 0.2 MG/DL 0.2-1.3 BILI, TOTAL [facility]) 10.3 MG/DL 8.4-10.2 Above high normal CALCIUM [facility] ([facility]) 105 MEQ/L 98-107 CHLORIDE [facility] ([facility]) 141 MEQ/L 137-145 SODIUM [facility] ([facility]) 7.6 G/DL 6.3-8.2 TOTAL [facility]OTEIN [facility]) 28 MEQ/L 22-30 CARBON DIOXIDE [facility] ([facility]) 34 IU/L 14-36 AST (GOT) [facility] ([facility]) 4.3 G/DL 3.5-5.0 ALBUMIN [facility] ([facility]) 85 IU/L 38-126 ALP [facility] ([facility]) 32 IU/L 7-30 Above high normal ALT [facility] ([facility]) 0.2 MG/DL 0.2-1.3 BILI, TOTAL [facility] ([facility]) 10.3 MG/DL 8.4-10.2 Above high normal CALCIUM [facility] ([facility]) ID Date Data Source [id number] 01/01/2020 05:30:00 PM EST [facility] ([facility] [id number] [place]) Name Value Range Interpretation Code Description Data Hoa rce(s) Supporting Document(s ) 3.71 MCUMM 4.0-5.1 Below low normal RBC [facility] ([facility]) 9.30 KCUMM 4.4-11.0 WBC [facility] ([facility]) 99.7 FL 80.0-100.0 MCV [facility] ([facility]) 37.0 % 36.0-46.0 HCT [facility] ([facility]) 11.7 G/DL 12.3-16.0 Below low normal HGB [facility] ([facility]) 31.5 PG 26.0-34.0 MCH [facility] ([facility]) 31.6 G/DL 32.0-37.0 Below low normal MCHC [facility] ([facility]) 14.8 % 11.5-14.5 Above high normal RDW [facility] ([facility]) 340 KCUMM 130-400 PLT [facility] ([facility]) 9.6 FL 8.0-11.0 MPV [facility] ([facility]) 0.00 KCUMM 0.0 NRBC ABS# [facility] ([facility]) 0.0 /100 0 NRBC% [facility] ([facility]) New parameters included in the report o f automated CBCNRBC(%/#) Is a direct count of Nucleated Red Blood cell, and will b ereported with every CBC count. WBC will automatically be corrected withthe prese nce of NRBC.

3.71 MCUMM 4.0-5.1 Below low normal RBC [facility]) 9.30 KCUMM 4.4-11.0 WBC [facility] ([facility]) 37.0 % 36.0-46.0 HCT [facility]) 11.7 G/DL 12.3-16.0 Below low normal HGB [facility] ([facility]) 31.5 PG 26.0-34.0 MCH [facility] ([facility]) 99.7 FL 80.0-100.0 MCV [facility] ([facility]) 31.6 G/DL 32.0-37.0 Below low normal MCHC [facility] ([facility]) 340 KCUMM 130-400 PLT [facility] ([facility]) 14.8 % 11.5-14.5 Above high normal RDW [facility] ([facility]) 0.0 /100 0 NRBC% [facility] ([facility]) New parameters included in the report o f automated CBCNRBC(%/#) Is a direct count of Nucleated Red Blood cell, and will b ereported with every CBC count. WBC will automatically be corrected withthe prese nce of NRBC.

9.6 FL 8.0-11.0 MPV [facility] ([facility]) 0.00 KCUMM 0.0 NRBC ABS# [facility] ([facility]) ID Date Data Source Liver 01/01/2020 04:30:00 PM EST [facility] Profile.[id number] Name Value Range Interpretation Description Data Sup porting Code Source(s) Document(s ) Alkaline 38-126 <content [facility] phosphatase styleCode="Bold"> [facility] [Enzymatic Alkaline Medical activity/volume] Phosphatase (ALP) Cente r in Serum or Plasma </content>85 IU/L<content styleCode="Italic s"> (38-126 IU/L)</content> Alanine 7-30 Above high <content [facility] aminotransferase normal styleCode="Bold"> [facility] [Enzymatic Alanine Medical activity/volume] Aminotransferase Center in Serum or Plasma (ALT) </content>32 IU/L H<content styleCode="Italic s"> (7-30 IU/L)</content> Aspartate 14-36 <content [facility] aminotransferase styleCode="Bold"> [facility] [Enzymatic Aspartate Medical activity/volume] Aminotransferase Center in Serum or Plasma (AST) </content>34 IU/L<content styleCode="Italic s"> (14-36 IU/L)</content> Albumin 3.5-5.0 <content [facility] [Mass/volume] in styleCode="Bold"> [facility] Serum or Plasma Albumin Medical </content>4.3 Center G/DL<content styleCode="Italic s"> (3.5-5.0 G/DL)</content> Bilirubin.total 0.2-1.3 <content [facility] [Mass/volume] in styleCode="Bold"> [facility] Serum or Plasma Bilirubin Total Medical </content>0.2 Center MG/DL<content styleCode="Italic s"> (0.2-1.3 MG/DL)</content> ID Date Data Source HematologyRou.[id number] 01/01/2020 04:30:00 PM [facility] 0400 Name Value Range Interpretation Description Data Sup porting Code Source(s) Document(s ) Leukocytes 4.4-11.0 <content [facility] [#/volume] in styleCode="[facility] Blood by ">White Blood Medical Automated count Cell Count Center </content>9.30 KCUMM<content styleCode="Ital ics"> (4.4-11.0 KCUMM)</content > Erythrocytes 4.0-5.1 Below low normal <content [facility] [#/volume] in styleCode="Bold [facility] Blood by ">Red Blood Medical Automated count Cell Count Center </content>3.71 MCUMM L<content styleCode="Ital ics"> (4.0-5.1 MCUMM)</content > Hemoglobin 12.3-16. Below low normal <content [facility] [Mass/volume] in 0 styleCode="Bold [facility] Blood ">Hemoglobin Medical </content>11.7 Center G/DL L<content styleCode="Ital ics"> (12.3-16.0 G/DL)</content> Erythrocyte mean 26.0-34. <content [facility] corpuscular 0 styleCode="[facility] hemoglobin ">Mean Medical [Entitic mass] Corposcular Center by Automated Hemoglobin count </content>31.5 PG<content styleCode="Ital ics"> (26.0-34.0 PG)</content> Erythrocyte mean 80.0-100 <content [facility] corpuscular .0 styleCode="[facility]old [facility] volume [Entitic ">Mean Medical volume] by Corpuscular Center Automated count Volume </content>99.7 FL<content styleCode="Ital ics"> (80.0-100.0 FL)</content> Hematocrit 36.0-46. <content [facility] [Volume 0 styleCode="[facility] Fraction] of ">Hematocrit Medical Blood by </content>37.0 Center Automated count %<content styleCode="Ital ics"> (36.0-46.0 %)</content> Erythrocyte mean 32.0-37. Below low normal <content [facility] corpuscular 0 styleCode="B[facility] hemoglobin ">Mean Corpus. Medical concentration Hgb Center [Mass/volume] by Concentration Automated count (MCHC) </content>31.6 G/DL L<content styleCode="Ital ics"> (32.0-37.0 G/DL)</content> UNK 0 <content [facility] styleCode="[facility] ">Nucleated Red Medical Blood Cell Center </content>0.0 /100<content styleCode="Ital ics"> (0 /100)</content> Platelets 130-400 <content [facility] [#/volume] in styleCode="[facility] Blood by ">Platelet Medical Automated count Count Center </content>340 KCUMM<content styleCode="Ital ics"> (130-400 KCUMM)</content > Erythrocyte 11.5-14. Above high <content [facility] distribution 5 normal styleCode="[facility] width [Ratio] by ">Red Cell Medical Automated count Distribution Center Width </content>14.8 % H<content styleCode="Ital ics"> (11.5-14.5 %)</content> Platelet mean 8.0-11.0 <content [facility] volume [Entitic styleCode="Bold [facility] volume] in Blood ">Mean Platelet Medical by Automated Volume Center count </content>9.6 FL<content styleCode="Ital ics"> (8.0-11.0 FL)</content> UNK 0.0 <content [facility] styleCode="[facility]old [facility] ">Nucleated Red Medical Blood Cell Center Count </content>0.00 KCUMM<content styleCode="Ital ics"> (0.0 KCUMM)</content > ID Date Data Source GFR(Creatinine).[id number] 01/01/2020 04:30:[address] [facility] 0-0400 Name Value Range Interpretation Code Description Data Hoa rce(s) Supporting Document(s ) UNK > 60 <content [facility] styleCode="Bold"> Medical Cent er EGFR </content>65 GFR<content styleCode="Italic s"> (> 60 GFR)</content> ID Date Data Source Coagulation 01/01/2020 04:30:00 PM [facility] Rout.[id number] EST Name Value Range Interpretation Description Data Sup porting Code Source(s) Document(s ) aPTT in 25.1-36. <content [facility] Platelet poor 5 styleCode="Bold" [facility] plasma by >Partial Medical Coagulation Thromboplastin Center assay Time </content>31.9 SEC<content styleCode="Itali cs"> (25.1-36.5 SEC)</content> INR in 0.80-1.2 <content [facility] Platelet poor 0 styleCode="Bold" [facility] plasma by >INR Medical Coagulation </content>0.95 Center assay #<content styleCode="Itali cs"> (0.80-1.20 #)</content> UNK 9.0-13.0 <content [facility] styleCode="Bold" [facility] >Protime Medical </content>10.6 Center SEC<content styleCode="Itali cs"> (9.0-13.0 SEC)</content> ID Date Data Source CHMROUTINECCDA.[id number] 01/01/2020 04:30:[address] [facility] -0400 Name Value Range Interpretation Description Data Sup porting Code Source(s) Document(s ) UNK >= 1.0 <content [facility] styleCode="Bold Medical ">AG Ratio Center </content>1.3 <content styleCode="Ital ics"> (>= 1.0 )</content> UNK 2.3-3.5 <content [facility] styleCode="Bold Medical ">Globulin Center </content>3.3 G/DL<content styleCode="Ital ics"> (2.3-3.5 G/DL)</content> Protein 6.3-8.2 <content [facility] [Mass/volum styleCode="Bold Medical e] in Serum ">Total Protein Center or Plasma </content>7.6 G/DL<content styleCode="Ital ics"> (6.3-8.2 G/DL)</content> ID Date Data Source [facility].[id number] 01/01/2020 04:30:00 PM [facility] Name Value Range Interpretation Description Data Sup porting Code Source(s) Document(s ) Potassium 3.5-5.3 <content [facility] [Moles/volume] in styleCode="Bold"> [facility] Serum or Plasma Potassium Medical </content>5.1 Center MEQ/L<content styleCode="Italic s"> (3.5-5.3 MEQ/L)</content> Sodium 137-145 <content [facility] [Moles/volume] in styleCode="Bold"> [facility] Serum or Plasma Sodium Medical </content>141 Center MEQ/L<content styleCode="Italic s"> (137-145 MEQ/L)</content> Chloride 98-107 <content [facility] [Moles/volume] in styleCode="Bold"> [facility] Serum or Plasma Chloride Medical </content>105 Center MEQ/L<content styleCode="Italic s"> (98-107 MEQ/L)</content> Carbon dioxide, 22-30 <content [facility] total styleCode="Bold"> [facility] [Moles/volume] in Carbon Dioxide Medical Serum or Plasma </content>28 Center MEQ/L<content styleCode="Italic s"> (22-30 MEQ/L)</content> Glucose 74-106 Above high <content [facility] [Mass/volume] in normal styleCode="Bold"> [facility] Serum or Plasma Glucose Medical </content>116 Center MG/DL H<content styleCode="Italic s"> (74-106 MG/DL)</content> UNK > 60 <content [facility] styleCode="Bold"> [facility] EGFR </content>65 Medical GFR<content Center styleCode="Italic s"> (> 60 GFR)</content> Calcium 8.4-10. Above high <content [facility] [Mass/volume] in 2 normal styleCode="Bold"> [facility] Serum or Plasma Calcium Medical </content>10.3 Center MG/DL H<content styleCode="Italic s"> (8.4-10.2 MG/DL)</content> Creatinine 0.5-1.3 <content [facility] [Mass/volume] in styleCode="Bold"> [facility] Serum or Plasma Creatinine Medical </content>0.9 Center MG/DL<content styleCode="Italic s"> (0.5-1.3 MG/DL)</content> UNK 7-17 Above high <content [facility] normal styleCode="Bold"> [facility] BUN </content>28 Medical MG/DL H<content Center styleCode="Italic s"> (7-17 MG/DL)</content> Alkaline 38-126 <content [facility] phosphatase styleCode="Bold"> [facility] [Enzymatic Alkaline Medical activity/volume] Phosphatase (ALP) Cente r in Serum or Plasma </content>85 IU/L<content styleCode="Italic s"> (38-126 IU/L)</content> Alanine 7-30 Above high <content [facility] aminotransferase normal styleCode="Bold"> [facility] [Enzymatic Alanine Medical activity/volume] Aminotransferase Center in Serum or Plasma (ALT) </content>32 IU/L H<content styleCode="Italic s"> (7-30 IU/L)</content> Bilirubin.total 0.2-1.3 <content [facility] [Mass/volume] in styleCode="Bold"> [facility] Serum or Plasma Bilirubin Total Medical </content>0.2 Center MG/DL<content styleCode="Italic s"> (0.2-1.3 MG/DL)</content> Albumin 3.5-5.0 <content [facility] [Mass/volume] in styleCode="Bold"> [facility] Serum or Plasma Albumin Medical </content>4.3 Center G/DL<content styleCode="Italic s"> (3.5-5.0 G/DL)</content> Aspartate 14-36 <content [facility] aminotransferase styleCode="Bold"> [facility] [Enzymatic Aspartate Medical activity/volume] Aminotransferase Center in Serum or Plasma (AST) </content>34 IU/L<content styleCode="Italic s"> (14-36 IU/L)</content> ID Date Data Source HematologyRou.[id number] 12/23/2019 11:35:[address] [facility] 0500 Name Value Range Interpretation Description Data Sup porting Code Source(s) Document(s ) Leukocytes 4.4-11.0 <content [facility] [#/volume] in styleCode="[facility] Blood by ">White Blood Medical Automated count Cell Count Center </content>5.78 KCUMM<content styleCode="Ital ics"> (4.4-11.0 KCUMM)</content > Erythrocytes 4.0-5.1 Below low normal <content [facility] [#/volume] in styleCode="[facility] Blood by ">Red Blood Medical Automated count Cell Count Center </content>3.47 MCUMM L<content styleCode="Ital ics"> (4.0-5.1 MCUMM)</content > Hematocrit 36.0-46. Below low normal <content [facility] [Volume 0 styleCode="Bold [facility] Fraction] of ">Hematocrit Medical Blood by </content>34.5 Center Automated count % L<content styleCode="Ital ics"> (36.0-46.0 %)</content> Erythrocyte mean 80.0-100 <content [facility] corpuscular .0 styleCode="Bold [facility] volume [Entitic ">Mean Medical volume] by Corpuscular Center Automated count Volume </content>99.4 FL<content styleCode="Ital ics"> (80.0-100.0 FL)</content> Hemoglobin 12.3-16. Below low normal <content [facility] [Mass/volume] in 0 styleCode="Bold [facility] Blood ">Hemoglobin Medical </content>11.0 Center G/DL L<content styleCode="Ital ics"> (12.3-16.0 G/DL)</content> Erythrocyte 11.5-14. Above high <content [facility] distribution 5 normal styleCode="[facility] width [Ratio] by ">Red Cell Medical Automated count Distribution Center Width </content>14.9 % H<content styleCode="Ital ics"> (11.5-14.5 %)</content> Erythrocyte mean 26.0-34. <content [facility] corpuscular 0 styleCode="Bold [facility] hemoglobin ">Mean Medical [Entitic mass] Corposcular Center by Automated Hemoglobin count </content>31.7 PG<content styleCode="Ital ics"> (26.0-34.0 PG)</content> Erythrocyte mean 32.0-37. Below low normal <content [facility] corpuscular 0 styleCode="Bold [facility] hemoglobin ">Mean Corpus. Medical concentration Hgb Center [Mass/volume] by Concentration Automated count (MCHC) </content>31.9 G/DL L<content styleCode="Ital ics"> (32.0-37.0 G/DL)</content> Platelet mean 8.0-11.0 <content [facility] volume [Entitic styleCode="Bold [facility] volume] in Blood ">Mean Platelet Medical by Automated Volume Center count </content>8.8 FL<content styleCode="Ital ics"> (8.0-11.0 FL)</content> Platelets 130-400 <content [facility] [#/volume] in styleCode="[facility] Blood by ">Platelet Medical Automated count Count Center </content>316 KCUMM<content styleCode="Ital ics"> (130-400 KCUMM)</content > UNK 0.0 <content [facility] styleCode="[facility] ">Nucleated Red Medical Blood Cell Center Count </content>0.00 KCUMM<content styleCode="Ital ics"> (0.0 KCUMM)</content > UNK 0 <content [facility] styleCode="[facility] ">Nucleated Red Medical Blood Cell Center </content>0.0 /100<content styleCode="Ital ics"> (0 /100)</content> ID Date Data Source GFR(Creatinine).[id number] 12/23/2019 11:35:00 AM EST [facility] 0-0500 Name Value Range Interpretation Code Description Data Hoa rce(s) Supporting Document(s ) UNK > 60 <content [facility] styleCode="Bold"> Medical Cent er EGFR </content>87 GFR<content styleCode="Italic s"> (> 60 GFR)</content> ID Date Data Source Coagulation 12/23/2019 11:35:00 AM [facility] Rout.[id number] EST Name Value Range Interpretation Description Data Sup porting Code Source(s) Document(s ) UNK 9.0-13.0 <content [facility] styleCode="Bold" [facility] >Protime Medical </content>11.4 Center SEC<content styleCode="Itali cs"> (9.0-13.0 SEC)</content> INR in 0.80-1.2 <content [facility] Platelet poor 0 styleCode="Bold" [facility] plasma by >INR Medical Coagulation </content>1.03 Center assay #<content styleCode="Itali cs"> (0.80-1.20 #)</content> aPTT in 25.1-36. <content Saint Platelet poor 5 styleCode="Bold" Apollo plasma by >Partial Medical Coagulation Thromboplastin Center assay Time </content>29.1 SEC<content styleCode="Itali cs"> (25.1-36.5 SEC)</content> ID Date Data Source [id number] 12/23/2019 11:35:00 AM EST [facility] Name Value Range Interpretation Description Data Sup porting Code Source(s) Document(s ) Sodium 137-145 <content Saint [Moles/volume] styleCode="Sandra Apollo in Serum or d">Sodium Medical Plasma </content>140 Center MEQ/L<content styleCode="Shi lics"> (137-145 MEQ/L)</conten t> Chloride 98-107 <content Saint [Moles/volume] styleCode="Sandra Apollo in Serum or d">Chloride Medical Plasma </content>107 Center MEQ/L<content styleCode="Shi lics"> (98-107 MEQ/L)</conten t> Potassium 3.5-5.3 <content Saint [Moles/volume] styleCode="Sandra Apollo in Serum or d">Potassium Medical Plasma </content>3.9 Center MEQ/L<content styleCode="Shi lics"> (3.5-5.3 MEQ/L)</conten t> Carbon 22-30 <content Saint dioxide, total styleCode="Sandra Apollo [Moles/volume] d">Carbon Medical in Serum or Dioxide Center Plasma </content>28 MEQ/L<content styleCode="Shi lics"> (22-30 MEQ/L)</conten t> Creatinine 0.5-1.3 <content Saint [Mass/volume] styleCode="Sandra Apollo in Serum or d">Creatinine Medical Plasma </content>0.7 Center MG/DL<content styleCode="Shi lics"> (0.5-1.3 MG/DL)</conten t> UNK 7-17 <content Saint styleCode="Sandra Apollo d">BUN Medical </content>17 Center MG/DL<content styleCode="Shi lics"> (7-17 MG/DL)</conten t> Glucose 74-106 <content Saint [Mass/volume] styleCode="Sandra Apollo in Serum or d">Glucose Medical Plasma </content>90 Center MG/DL<content styleCode="Shi lics"> (74-106 MG/DL)</conten t> Calcium 8.4-10.2 <content Saint [Mass/volume] styleCode="Sandra Apollo in Serum or d">Calcium Medical Plasma </content>9.5 Center MG/DL<content styleCode="Shi lics"> (8.4-10.2 MG/DL)</conten t> UNK > 60 <content Saint styleCode="Sandra Hurleys d">EGFR Medical </content>87 Center GFR<content styleCode="Shi lics"> (> 60 GFR)</content> ID Date Data Source Urinalysis.[id number] 12/15/2019 10:00:00 AM [facility] 0 Name Value Range Interpretation Description Data Sup porting Code Source(s) Document(s ) Color of Urine YELLOW <content Saint styleCode="[facility] d">Color, Medical Urine Center </content>YELL OW <content styleCode="Shi lics"> (YELLOW )</content> UNK CLEAR <content Saint styleCode="Sandra Apollo d">Urine Medical Clarity Center </content>CAL R <content styleCode="Shi lics"> (CLEAR )</content> Glucose NEGATIVE <content Saint [Mass/volume] styleCode="Sandra Hurleys in Urine by d">Urine Medical Test strip Glucose Center </content>NEGA TIVE MG/DL<content styleCode="Shi lics"> (NEGATIVE MG/DL)</conten t> Ketones NEGATIVE <content Saint [Mass/volume] styleCode="Sandra Hurleys in Urine by d">Urine Medical Test strip Ketone Center </content>NEGA TIVE MG/DL<content styleCode="Shi lics"> (NEGATIVE MG/DL)</conten t> UNK NEGATIVE <content Saint styleCode="Sandra Apollo d">Urine Medical Bilirubin Center </content>NEGA TIVE <content styleCode="Shi lics"> (NEGATIVE )</content> Specific 1.015-1.02 <content Saint gravity of 5 styleCode="Sandra Hurleys Urine by Test d">Urine Medical strip Specific Center [place] </content>1.01 5 <content styleCode="Shi lics"> (1.015-1.025 )</content> Hemoglobin NEGATIVE <content Saint [Presence] in styleCode="Sandar Hurleys Urine by Test d">Urine Blood Medical strip </content>NEGA Center TIVE <content styleCode="Shi lics"> (NEGATIVE )</content> Protein NEGATIVE <content Saint [Mass/volume] styleCode="Sandra Hurleys in Urine by d">Urine Medical Test strip Protein Center </content>NEGA TIVE MG/DL<content styleCode="Shi lics"> (NEGATIVE MG/DL)</conten t> pH of Urine by 4.5-8.0 <content Saint Test strip styleCode="Sandra uHrleys d">Urine pH Medical </content>7.0 Center <content styleCode="Shi lics"> (4.5-8.0 )</content> Nitrite NEGATIVE <content Saint [Presence] in styleCode="Sandra Bustillos Urine by Test d">Urine Medical strip Nitrite Center </content>NEGA TIVE <content styleCode="Shi lics"> (NEGATIVE )</content> Leukocyte NEGATIVE <content Saint esterase styleCode="Sandra Bustillos [Presence] in d">Urine Medical Urine by Test Leukocyte Center strip </content>NEGA TIVE <content styleCode="Shi lics"> (NEGATIVE )</content> Urobilinogen 0.2-1.0 <content Saint [Units/volume] styleCode="Sandra Bustillos in Urine by d">Urine Medical Test strip Urobilinogen Center </content>0.2 MG/DL<content styleCode="Shi lics"> (0.2-1.0 MG/DL)</conten t> ID Date Data Source Microbiology.[id number] 08/05/2019 12:52:00 PM EDT [facility] 400 Name Value Range Interpretation Code Description Data Hoa rce(s) Supporting Document(s ) UNK <item><content [facility] styleCode="Bold"> Medical Cent er Culture Report </content>
<t able><tbody><tr>< td>Specimen Number:</td><td>[id number]</td></tr ><tr><td>Sample Collection Date/Time: </td><td> 9 12:52 PM</td></tr><tr>< td>Specimen Source:</td><td>U RINE</td></tr><tr ><td>Urine Culture:</td><td> Collection Plate Date: 08/05/2019 16:22 </td></tr><tr><td >Culture Status:</td><td>F inal </td></tr><tr><td >Culture Report:</td><td>N O GROWTH </td></tr></tbody ></table></item> UNK <item><content [facility] styleCode="Bold"> Medical [facility] er Culture Status </content>
<t able><tbody><tr>< td>Specimen Number:</td><td>[id number]</td></tr ><tr><td>Sample Collection Date/Time: </td><td> 9 12:52 PM</td></tr><tr>< td>Specimen Source:</td><td>U RINE</td></tr><tr ><td>Culture Report:</td><td>N O GROWTH </td></tr><tr><td >Urine Culture:</td><td> Collection Plate Date: 08/05/2019 16:22 </td></tr><tr><td >Culture Status:</td><td>F inal </td></tr></tbody ></table></item> ID Date Data Source Liver 07/30/2019 09:47:00 AM EDT [facility] Profile.[id number] Name Value Range Interpretation Description Data Sup porting Code Source(s) Document(s ) Aspartate 14-36 <content Saint aminotransferase styleCode="Bold"> [facility] [Enzymatic Aspartate Medical activity/volume] Aminotransferase Center in Serum or Plasma (AST) </content>19 IU/L<content styleCode="Italic s"> (14-36 IU/L)</content> Bilirubin.total 0.2-1.3 <content Saint [Mass/volume] in styleCode="Bold"> Cameron hs Serum or Plasma Bilirubin Total Medical </content>0.2 Center MG/DL<content styleCode="Italic s"> (0.2-1.3 MG/DL)</content> Alanine 7-30 <content [facility] aminotransferase styleCode="Bold"> [facility] hs [Enzymatic Alanine Medical activity/volume] Aminotransferase Center in Serum or Plasma (ALT) </content>15 IU/L<content styleCode="Italic s"> (7-30 IU/L)</content> Alkaline 38-126 <content Saint phosphatase styleCode="Bold"> [facility] [Enzymatic Alkaline Medical activity/volume] Phosphatase (ALP) Cente r in Serum or Plasma </content>65 IU/L<content styleCode="Italic s"> (38-126 IU/L)</content> Albumin 3.5-5.0 <content Saint [Mass/volume] in styleCode="Bold"> Cameron hs Serum or Plasma Albumin Medical </content>3.9 Center G/DL<content styleCode="Italic s"> (3.5-5.0 G/DL)</content> ID Date Data Source GFR(Creatinine).[id number] 07/30/2019 09:47:[address] [facility] 0-0400 Name Value Range Interpretation Code Description Data Hoa rce(s) Supporting Document(s ) UNK > 60 <content [facility] styleCode="Bold"> Medical Cent er EGFR </content>87 GFR<content styleCode="Italic s"> (> 60 GFR)</content> ID Date Data Source CHMROUTRAMONACCDA.[id number] 07/30/2019 09:47:[address] [facility] -0400 Name Value Range Interpretation Description Data Sup porting Code Source(s) Document(s ) UNK 2.3-3.5 <content [facility] styleCode="Bold Medical ">Globulin Center </content>3.4 G/DL<content styleCode="Ital ics"> (2.3-3.5 G/DL)</content> UNK >= 1.0 <content [facility] Apollo styleCode="Bold Medical ">AG Ratio Center </content>1.1 <content styleCode="Ital ics"> (>= 1.0 )</content> Protein 6.3-8.2 <content [facility] Apollo [Mass/volum styleCode="Bold Medical e] in Serum ">Total Protein Center or Plasma </content>7.3 G/DL<content styleCode="Ital ics"> (6.3-8.2 G/DL)</content> ID Date Data Source [facility].[id number] 07/30/2019 09:47:00 AM EDT [facility] Name Value Range Interpretation Description Data Sup porting Code Source(s) Document(s ) Potassium 3.5-5.3 <content Saint [Moles/volume] in styleCode="Bold"> [facility] Serum or Plasma Potassium Medical </content>4.0 Center MEQ/L<content styleCode="Italic s"> (3.5-5.3 MEQ/L)</content> Sodium 137-145 <content Saint [Moles/volume] in styleCode="Bold"> [facility] phs Serum or Plasma Sodium Medical </content>143 Center MEQ/L<content styleCode="Italic s"> (137-145 MEQ/L)</content> UNK 7-17 <content Saint styleCode="Bold"> Apollo BUN </content>16 Medical MG/DL<content Center styleCode="Italic s"> (7-17 MG/DL)</content> Carbon dioxide, 22-30 <content Saint total styleCode="Bold"> Apollo [Moles/volume] in Carbon Dioxide Medical Serum or Plasma </content>27 Center MEQ/L<content styleCode="Italic s"> (22-30 MEQ/L)</content> Glucose 74-106 <content Saint [Mass/volume] in styleCode="Bold"> [facility] hs Serum or Plasma Glucose Medical </content>93 Center MG/DL<content styleCode="Italic s"> (74-106 MG/DL)</content> Creatinine 0.5-1.3 <content Saint [Mass/volume] in styleCode="Bold"> [facility] hs Serum or Plasma Creatinine Medical </content>0.7 Center MG/DL<content styleCode="Italic s"> (0.5-1.3 MG/DL)</content> Chloride 98-107 <content Saint [Moles/volume] in styleCode="Bold"> [facility] Serum or Plasma Chloride Medical </content>107 Center MEQ/L<content styleCode="Italic s"> (98-107 MEQ/L)</content> UNK > 60 <content Saint styleCode="Bold"> Apollo EGFR </content>87 Medical GFR<content Center styleCode="Italic s"> (> 60 GFR)</content> Alkaline 38-126 <content Saint phosphatase styleCode="Bold"> Apollo [Enzymatic Alkaline Medical activity/volume] Phosphatase (ALP) Cente r in Serum or Plasma </content>65 IU/L<content styleCode="Italic s"> (38-126 IU/L)</content> Alanine 7-30 <content [facility] aminotransferase styleCode="Bold"> [facility] [Enzymatic Alanine Medical activity/volume] Aminotransferase Center in Serum or Plasma (ALT) </content>15 IU/L<content styleCode="Italic s"> (7-30 IU/L)</content> Calcium 8.4-10. <content Saint [Mass/volume] in 2 styleCode="Bold"> Cameron hs Serum or Plasma Calcium Medical </content>9.9 Center MG/DL<content styleCode="Italic s"> (8.4-10.2 MG/DL)</content> Aspartate 14-36 <content [facility] aminotransferase styleCode="Bold"> [facility] hs [Enzymatic Aspartate Medical activity/volume] Aminotransferase Center in Serum or Plasma (AST) </content>19 IU/L<content styleCode="Italic s"> (14-36 IU/L)</content> Bilirubin.total 0.2-1.3 <content Saint [Mass/volume] in styleCode="Bold"> Cameron hs Serum or Plasma Bilirubin Total Medical </content>0.2 Center MG/DL<content styleCode="Italic s"> (0.2-1.3 MG/DL)</content> Albumin 3.5-5.0 <content Saint [Mass/volume] in styleCode="Bold"> Cameron hs Serum or Plasma Albumin Medical </content>3.9 Center G/DL<content styleCode="Italic s"> (3.5-5.0 G/DL)</content> ID Date Data Source [id number] 07/30/2019 09:47:00 AM EDT [facility] EN ([facility] [id number] Center) Name Value Range Interpretation Description Data Sup porting Code Source(s) Document(s ) 143 MEQ/L 137-145 SODIUM [facility] ([facility]) 4.0 MEQ/L 3.5-5.3 POTASSIUM [facility] ([facility]) 107 MEQ/L 98-107 CHLORIDE [facility] ([facility]) 27 MEQ/L 22-30 CARBON DIOXIDE [facility] ([facility]) 7.3 G/DL 6.3-8.2 TOTAL PROTEIN [facility] ([facility]) 3.9 G/DL 3.5-5.0 ALBUMIN [facility] ([facility]) 15 IU/L 7-30 ALT [facility] ([facility]) 1.1 >= 1.0 AG RATIO [facility] ([facility]) 19 IU/L 14-36 AST (GOT) [facility] ([facility]) 3.4 G/DL 2.3-3.5 GLOBULIN [facility] ([facility]) 65 IU/L 38-126 ALP [facility] ([facility]) 16 MG/DL 7-17 BUN [facility] ([facility]) 9.9 MG/DL 8.4-10.2 CALCIUM [facility] ([facility]) 87 GFR > 60 eGFR [facility] ([facility]) Estimated GFR is calculated using the Mo dification of Diet in RenalDisease (MDRD) Study equation, and normalized to 1.73m2 body surfce area.The MDRD study equation should only be used in individuals age 18 orolder. It has not been validated f or the following: women,patients with serious comorbid conditions, or on certain medications, orpersons with extremes of body size, muscle mass, or nutritional status. 0.2 MG/DL 0.2-1.3 BILI, TOTAL [facility]EXT[facility] ([facility]) 0.7 MG/DL 0.5-1.3 CREATININE [facility] ([facility]) 93 MG/DL 74-106 GLUCOSE [facility] ([facility]) ID Date Data Source [id number] 07/30/2019 09:47:00 AM EDT [facility] [id number] [place]) Name Value Range Interpretation Description Data Sup porting Code Source(s) Document(s ) 27 MEQ/L 22-30 CARBON DIOXIDE [facility] ([facility]) 143 MEQ/L 137-145 SODIUM [facility] ([facility]) 107 MEQ/L 98-107 CHLORIDE [facility] ([facility]) 19 IU/L 14-36 AST (GOT) [facility] ([facility]) 7.3 G/DL 6.3-8.2 TOTAL PROTEIN [facility] ([facility]) 3.9 G/DL 3.5-5.0 ALBUMIN [facility] ([facility]) 9.9 MG/DL 8.4-10.2 CALCIUM [facility] ([facility]) 0.2 MG/DL 0.2-1.3 BILI, TOTAL [facility] ([facility]) 0.7 MG/DL 0.5-1.3 CREATININE [facility] ([facility]) ID Date Data Source Urinalysis.[id number] 07/22/2019 11:10:[address] [facility] 0 Name Value Range Interpretation Description Data Sup porting Code Source(s) Document(s ) UNK CLEAR <content Saint styleCode="Sandra Apollo d">Urine Medical Clarity Center </content>CAL R <content styleCode="Shi lics"> (CLEAR )</content> Color of Urine YELLOW <content Saint styleCode="Sandra Apollo d">Color, Medical Urine Center </content>YELL OW <content styleCode="Shi lics"> (YELLOW )</content> Ketones NEGATIVE <content Saint [Mass/volume] styleCode="Sandra Hurleys in Urine by d">Urine Medical Test strip Ketone Center </content>NEGA TIVE MG/DL<content styleCode="Shi lics"> (NEGATIVE MG/DL)</conten t> Glucose NEGATIVE <content Saint [Mass/volume] styleCode="Sandra Apollo in Urine by d">Urine Medical Test strip Glucose Center </content>NEGA TIVE MG/DL<content styleCode="Shi lics"> (NEGATIVE MG/DL)</conten t> UNK NEGATIVE <content Saint styleCode="Sandra Apollo d">Urine Medical Bilirubin Center </content>NEGA TIVE <content styleCode="Shi lics"> (NEGATIVE )</content> Specific 1.015-1.02 <content Saint gravity of 5 styleCode="Sandra Hurleys Urine by Test d">Urine Medical strip Specific Center [place] </content>1.02 0 <content styleCode="Shi lics"> (1.015-1.025 )</content> pH of Urine by 4.5-8.0 <content Saint Test strip styleCode="Sanrda Apollo d">Urine pH Medical </content>6.0 Center <content styleCode="Shi lics"> (4.5-8.0 )</content> Hemoglobin NEGATIVE <content Saint [Presence] in styleCode="Sandra Hurleys Urine by Test d">Urine Blood Medical strip </content>NEGA Center TIVE <content styleCode="Shi lics"> (NEGATIVE )</content> Protein NEGATIVE <content Saint [Mass/volume] styleCode="Sandra Apollo in Urine by d">Urine Medical Test strip Protein Center </content>NEGA TIVE MG/DL<content styleCode="Shi lics"> (NEGATIVE MG/DL)</conten t> Urobilinogen 0.2-1.0 <content Saint [Units/volume] styleCode="Sandra Apollo in Urine by d">Urine Medical Test strip Urobilinogen Center </content>0.2 MG/DL<content styleCode="Shi lics"> (0.2-1.0 MG/DL)</conten t> Nitrite NEGATIVE <content Saint [Presence] in styleCode="Sandra Bustillos Urine by Test d">Urine Medical strip Nitrite Center </content>NEGA TIVE <content styleCode="Shi lics"> (NEGATIVE )</content> Leukocyte NEGATIVE <content Saint esterase styleCode="Sandra Bustillos [Presence] in d">Urine Medical Urine by Test Leukocyte Center strip </content>NEGA TIVE <content styleCode="Shi lics"> (NEGATIVE )</content> ID Date Data Source Microbiology.[id number] 07/22/2019 11:10:00 AM EDT [facility] 400 Name Value Range Interpretation Code Description Data Hoa rce(s) Supporting Document(s ) UNK <item><content [facility] Bustillos styleCode="Bold">C Medical [address] ulture Report </content>
<ta ble><tbody><tr><td >Specimen Number:</td><td>[id number]</td></tr>< tr><td>Sample Collection Date/Time: </td><td>07/22/2019 11:10 AM</td></tr><tr><t d>Specimen Source:</td><td>UR INE BLADDER</td></tr>< tr><td>Culture Report:</td><td>NO FURTHER WORKUP </td></tr><tr><td> Urine Culture:</td><td>C ollection Plate Date: 07/22/2019 12:09 </td></tr><tr><td> Culture Status:</td><td>Fi nal </td></tr><tr><td> Organism 1:</td><td>VIRIDAN S STREPTOCOCCUS GROUP </td></tr><tr><td> Organism 2:</td><td>GRAM NEGATIVE BACILLI </td></tr></tbody> </table>
<tabl e border="2"><tbody> <tr><td></td><td>1 </td><td>2</td></t r><tr><td>Comment< /td><td></td><td>< /td></tr><tr><td>R esult Value</td><td>ZEN DANS STREPTOCOCCUS GROUP </td><td>GRAM NEGATIVE BACILLI </td></tr><tr><td> Result Status</td><td>Fin al Result</td><td>Fin al Result</td></tr><t r><td></td><td></t d><td></td></tr></ tbody></table></it em> UNK <item><content [facility] styleCode="Bold">C Medical [facility] ter ulture Status </content>
<ta ble><tbody><tr><td >Specimen Number:</td><td>[id number]</td></tr>< tr><td>Sample Collection Date/Time: </td><td>07/22/2019 11:10 AM</td></tr><tr><t d>Specimen Source:</td><td>UR INE BLADDER</td></tr>< tr><td>Culture Status:</td><td>Fi nal </td></tr><tr><td> Culture Report:</td><td>NO FURTHER WORKUP </td></tr><tr><td> Urine Culture:</td><td>C ollection Plate Date: 07/22/2019 12:09 </td></tr><tr><td> Organism 1:</td><td>VIRIDAN S STREPTOCOCCUS GROUP </td></tr><tr><td> Organism 2:</td><td>GRAM NEGATIVE BACILLI </td></tr></tbody> </table>
<tabl e border="2"><tbody> <tr><td></td><td>1 </td><td>2</td></t r><tr><td>Comment< /td><td></td><td>< /td></tr><tr><td>R esult Value</td><td>ZEN DANS STREPTOCOCCUS GROUP </td><td>GRAM NEGATIVE BACILLI </td></tr><tr><td> Result Status</td><td>Fin al Result</td><td>Fin al Result</td></tr><t r><td></td><td></t d><td></td></tr></ tbody></table></it em> ID Date Data Source Coagulation 07/22/2019 11:10:00 AM [facility] Center Rout.[id number] EDT Name Value Range Interpretation Description Data Sup porting Code Source(s) Document(s ) UNK 9.0-13.0 <content Saint styleCode="Bold" Apollo >Protime Medical </content>11.5 Center SEC<content styleCode="Itali cs"> (9.0-13.0 SEC)</content> INR in 0.80-1.2 <content Saint Platelet poor 0 styleCode="Bold" Apollo plasma by >INR Medical Coagulation </content>1.04 Center assay #<content styleCode="Itali cs"> (0.80-1.20 #)</content> aPTT in 25.1-36. Below low normal <content Saint Platelet poor 5 styleCode="Bold" Apollo plasma by >Partial Medical Coagulation Thromboplastin Center assay Time </content>20.6 SEC L<content styleCode="Itali cs"> (25.1-36.5 SEC)</content> ID Date Data Source [id number] 07/22/2019 11:10:00 AM EDT [facility] EN ([facility] [id number] [place]) Name Value Range Interpretation Code Description Data Hoa rce(s) Supporting Document(s ) 20.6 SEC 25.1-36.5 Below low normal PTT [facility]) Heparin therapeutic range is 55 sec to 87 secReccommended therapeutic range for Argatroban is 1.5 to 3 times base lineAPTT,and for Refludan is 1.5 TO 2.5 times baseline APTT. ID Date Data Source [id number] 07/22/2019 11:10:00 AM EDT [facility] EN ([facility] [id number] [place]) Name Value Range Interpretation Code Description Data Hoa rce(s) Supporting Document(s ) 1.04 # 0.80-1.20 INR [facility] ([facility]) [employer] REC OMMENDS USE OF THE INR FORMONITORING ORAL ANTICOAGULANT THERAPY. INR OF 2.0 - 3.0 IS RECOMMENDEDFOR ALL CONDITIONS WITH THE EXEPTION OF PATIENTS ANTICOAGULATED F ORTHROMBOTIC COMPLICATIONS OF MECHANICAL HEART VALVE FOR WHICH AN INR OF2.5 - 3.5 IS RECOMMENDED. 11.5 SEC 9.0-13.0 PT [facility]) ID Date Data Source [id number] 07/22/2019 11:10:00 AM EDT [facility] EN ([facility] [id number] [place]) Name Value Range Interpretation Code Description Data Hoa rce(s) Supporting Document(s ) GRAM NEGATIVE ORGANISM ID [facility]) < 10,000

ID Date Data Source [id number] 07/22/2019 11:10:00 AM EDT [facility] EN ([facility] [id number] [place]) Name Value Range Interpretation Description Data Sup porting Code Source(s) Document(s ) VIRIDANS ORGANISM ID [facility] STREPTOCOCCUS ([facility]) 20,000 ID Date Data Source [id number] 07/22/2019 11:10:00 AM EDT [facility] EN ([facility] [id number] [place]) Name Value Range Interpretation Code Description Data Supporting Source(s) Document(s ) [id number] SPECIMEN NO [facility] ([facility]) Final CULTURE STATUS [facility] ([facility]) 07/22/2019 PLATE DT [facility] 12:09 ([facility]) URINE CULTURE SOURCE [facility] BLADDER ([facility]) 07/22/2019 COLLECTION DT [facility] 11:10 ([facility]) NO FURTHER CULTURE REPORT [facility] WORKUP ([facility]) ID Date Data Source [id number] 07/22/2019 11:10:00 AM EDT [facility] EN ([facility] [id number] [place]) Name Value Range Interpretation Description Data Sup porting Code Source(s) Document(s ) [facility]) [id number] SPECIMEN NO [facility] ([facility]) URINE BLADDER CULTURE SOURCE [facility]) 07/22/2019 COLLECTION DT [facility] 11:10 ([facility]) 07/22/2019 PLATE DT [facility] 12:09 ([facility]) Culture in [facility]ULTURE REPORT [facility] ([facility]) ID Date Data Source [id number] 07/22/2019 11:10:00 AM EDT [facility] EN ([facility] [id number] [place]) Name Value Range Interpretation Description Data Sup porting Code Source(s) Document(s ) CLEAR CLEAR U CLARITY [facility]) NEGATIVE NEGATIVE U GLUCOSE [facility] ([facility]) YELLOW YELLOW [facility]OR [facility] ([facility]) NEGATIVE NEGATIVE U BILIRUBIN [facility] ([facility]) NEGATIVE NEGATIVE U KETONE [facility] ([facility]) 1.020 1.015-1.025 U SP.GRAVITY [facility] ([facility]) 6.0 4.5-8.0 U PH [facility] ([facility]) 0.2 MG/DL 0.2-1.0 U UROBILINOGEN [facility] ([facility]) NEGATIVE NEGATIVE U PROTEIN [facility] ([facility]) NEGATIVE NEGATIVE U BLOOD [facility] ([facility]) NEGATIVE NEGATIVE U NITRITE [facility] ([facility]) NEGATIVE NEGATIVE U. LEUKOCYTE [facility] ([facility]) ID Date Data Source Liver 05/20/2019 04:05:00 PM EDT [facility] Profile.[id number] Name Value Range Interpretation Description Data Sup porting Code Source(s) Document(s ) Alanine 7-30 <content [facility] aminotransferase styleCode="Bold"> [facility] hs [Enzymatic Alanine Medical activity/volume] Aminotransferase Center in Serum or Plasma (ALT) </content>18 IU/L<content styleCode="Italic s"> (7-30 IU/L)</content> Aspartate 14-36 <content [facility] aminotransferase styleCode="Bold"> [facility] hs [Enzymatic Aspartate Medical activity/volume] Aminotransferase Center in Serum or Plasma (AST) </content>21 IU/L<content styleCode="Italic s"> (14-36 IU/L)</content> Alkaline 38-126 <content [facility] phosphatase styleCode="Bold"> [facility] [Enzymatic Alkaline Medical activity/volume] Phosphatase (ALP) Cente r in Serum or Plasma </content>87 IU/L<content styleCode="Italic s"> (38-126 IU/L)</content> Bilirubin.total 0.2-1.3 <content [facility] [Mass/volume] in styleCode="Bold"> Cameron hs Serum or Plasma Bilirubin Total Medical </content>0.2 Center MG/DL<content styleCode="Italic s"> (0.2-1.3 MG/DL)</content> Albumin 3.5-5.0 <content [facility] [Mass/volume] in styleCode="Bold"> Cameron hs Serum or Plasma Albumin Medical </content>4.1 Center G/DL<content styleCode="Italic s"> (3.5-5.0 G/DL)</content> ID Date Data Source LIPID.[id number] 05/20/2019 04:05:00 PM EDT [facility] Name Value Range Interpretation Description Data Sup porting Code Source(s) Document(s ) Cholesterol -<200 <content [facility] [Mass/volume] in styleCode="[facility] Serum or Plasma d">Cholesterol Medical </content>191 Center MG/DL<content styleCode="Shi lics"> (-<200 MG/DL)</conten t> Triglyceride < 150 Above high normal <content [facility] [Mass/volume] in styleCode="[facility] Serum or Plasma d">Triglycerid Medical Center </content>151 MG/DL H<content styleCode="Shi lics"> (< 150 MG/DL)</conten t> UNK < 100 Above high normal <content [facility] styleCode="[facility] d">LDL-Cholest [facility] adri Center </content>101 MG/DL H<content styleCode="Shi lics"> (< 100 MG/DL)</conten t> UNK > 60 Below low normal <content [facility] styleCode="[facility] d">HDL- Medical Cholesterol Center </content>60 MG/DL L<content styleCode="Shi lics"> (> 60 MG/DL)</conten t> ID Date Data Source HematologyRou.[id number] 05/20/2019 04:05:00 PM EDT [facility] 0400 Name Value Range Interpretation Description Data Sup porting Code Source(s) Document(s ) Leukocytes 4.4-11.0 <content [facility] [#/volume] in styleCode="[facility]old [facility] Blood by ">White Blood Medical Automated count Cell Count Center </content>7.55 KCUMM<content styleCode="Ital ics"> (4.4-11.0 KCUMM)</content > Hemoglobin 12.3-16. Below low normal <content [facility] [Mass/volume] in 0 styleCode="Bold Apollo Blood ">Hemoglobin Medical </content>10.7 Center G/DL L<content styleCode="Ital ics"> (12.3-16.0 G/DL)</content> Hematocrit 36.0-46. Below low normal <content [facility] [Volume 0 styleCode="Bold [facility] Fraction] of ">Hematocrit Medical Blood by </content>34.0 Center Automated count % L<content styleCode="Ital ics"> (36.0-46.0 %)</content> Erythrocytes 4.0-5.1 Below low normal <content [facility] [#/volume] in styleCode="Bold [facility] Blood by ">Red Blood Medical Automated count Cell Count Center </content>3.38 MCUMM L<content styleCode="Ital ics"> (4.0-5.1 MCUMM)</content > Erythrocyte mean 26.0-34. <content [facility] corpuscular 0 styleCode="Bold Apollo hemoglobin ">Mean Medical [Entitic mass] Corposcular Center by Automated Hemoglobin count </content>31.7 PG<content styleCode="Ital ics"> (26.0-34.0 PG)</content> Erythrocyte mean 32.0-37. Below low normal <content [facility] corpuscular 0 styleCode="Bold Apollo hemoglobin ">Mean Corpus. Medical concentration Hgb Center [Mass/volume] by Concentration Automated count (MCHC) </content>31.5 G/DL L<content styleCode="Ital ics"> (32.0-37.0 G/DL)</content> Erythrocyte mean 80.0-100 <content [facility] corpuscular .0 styleCode="Bold [facility] volume [Entitic ">Mean Medical volume] by Corpuscular Center Automated count Volume </content>100.6 FL<content styleCode="Ital ics"> (80.0-100.0 FL)</content> Platelets 130-400 <content [facility] [#/volume] in styleCode="Bold [facility] Blood by ">Platelet Medical Automated count Count Center </content>320 KCUMM<content styleCode="Ital ics"> (130-400 KCUMM)</content > Erythrocyte 11.5-14. Above high <content [facility] distribution 5 normal styleCode="Bold Apollo width [Ratio] by ">Red Cell Medical Automated count Distribution Center Width </content>15.5 % H<content styleCode="Ital ics"> (11.5-14.5 %)</content> Neutrophils 36-66 <content [facility] [#/volume] in styleCode="Bold [facility] Blood by ">Neutrophil Medical Automated count </content>64.5 Center %<content styleCode="Ital ics"> (36-66 %)</content> Platelet mean 8.0-11.0 <content [facility] volume [Entitic styleCode="Bold Apollo volume] in Blood ">Mean Platelet Medical by Automated Volume Center count </content>10.2 FL<content styleCode="Ital ics"> (8.0-11.0 FL)</content> UNK 1.6-7.3 <content [facility] styleCode="Bold Apollo ">Neutrophil Medical Count Center </content>4.87 KCUMM<content styleCode="Ital ics"> (1.6-7.3 KCUMM)</content > Lymphocytes 24.0-44. Below low normal <content [facility] [#/volume] in 0 styleCode="Bold [facility] Blood by ">Lymphocyte Medical Automated count </content>23.0 Center % L<content styleCode="Ital ics"> (24.0-44.0 %)</content> Monocytes 3.0-10.0 <content [facility] [#/volume] in styleCode="Bold [facility] Blood by ">Monocyte Medical Automated count </content>8.9 Center %<content styleCode="Ital ics"> (3.0-10.0 %)</content> UNK 1.0-4.8 <content [facility] styleCode="Bold Apollo ">Lymphocyte Medical Count Center </content>1.74 KCUMM<content styleCode="Ital ics"> (1.0-4.8 KCUMM)</content > Eosinophils 0-5.0 <content [facility] [#/volume] in styleCode="Bold [facility] Blood by ">Eosinophil Medical Automated count </content>2.4 Center %<content styleCode="Ital ics"> (0-5.0 %)</content> UNK 0.2-0.9 <content [facility] styleCode="Bold Apollo ">Monocyte Medical Count Center </content>0.67 KCUMM<content styleCode="Ital ics"> (0.2-0.9 KCUMM)</content > Basophils 0.0-1.0 <content [facility] [#/volume] in styleCode="Bold [facility] Blood by ">Basophil Medical Automated count </content>0.9 Center %<content styleCode="Ital ics"> (0.0-1.0 %)</content> UNK 0.0-0.6 <content [facility] styleCode="Bold Apollo ">Eosinophil Medical Count Center </content>0.18 KCUMM<content styleCode="Ital ics"> (0.0-0.6 KCUMM)</content > UNK 0 <content [facility] styleCode="Bold Apollo ">Nucleated Red Medical Blood Cell Center </content>0.0 /100<content styleCode="Ital ics"> (0 /100)</content> UNK 0.0-0.3 <content [facility] styleCode="Bold Apollo ">Basophil Medical Count Center </content>0.07 KCUMM<content styleCode="Ital ics"> (0.0-0.3 KCUMM)</content > UNK 0-0.1 <content [facility] styleCode="Bold Apollo ">Immature Medical Granulocyte Center Count </content>0.02 KCUMM<content styleCode="Ital ics"> (0-0.1 KCUMM)</content > UNK < 1 <content [facility] styleCode="Bold Apollo ">Immature Medical Granulocyte Center Ratio </content>0.3 %<content styleCode="Ital ics"> (< 1 %)</content> UNK 0.0 <content [facility] styleCode="Bold Apollo ">Nucleated Red Medical Blood Cell Center Count </content>0.00 KCUMM<content styleCode="Ital ics"> (0.0 KCUMM)</content > ID Date Data Source GFR(Creatinine).[id number] 05/20/2019 04:05:00 PM EDT [facility] 0-0400 Name Value Range Interpretation Code Description Data Hoa rce(s) Supporting Document(s ) UNK > 60 <content [facility] styleCode="Bold"> Medical Cent er EGFR </content>75 GFR<content styleCode="Italic s"> (> 60 GFR)</content> ID Date Data Source CHMROUTINECCDA.[id number] 05/20/2019 04:05:[address] [facility] -0400 Name Value Range Interpretation Description Data Sup porting Code Source(s) Document(s ) UNK 4.2-5.8 Above high normal <content [facility] styleCode="Bold Medical ">Hemoglobin Center A1C </content>6.0 % H<content styleCode="Ital ics"> (4.2-5.8 %)</content> UNK 2.3-3.5 <content [facility] styleCode="Bold Medical ">Globulin Center </content>3.4 G/DL<content styleCode="Ital ics"> (2.3-3.5 G/DL)</content> UNK >= 1.0 <content [facility] styleCode="Bold Medical ">AG Ratio Center </content>1.2 <content styleCode="Ital ics"> (>= 1.0 )</content> Protein 6.3-8.2 <content [facility] [Mass/volum styleCode="Bold Medical e] in Serum ">Total Protein Center or Plasma </content>7.5 G/DL<content styleCode="Ital ics"> (6.3-8.2 G/DL)</content> ID Date Data Source [facility].[id number] 05/20/2019 04:05:00 PM EDT [facility] Name Value Range Interpretation Description Data Sup porting Code Source(s) Document(s ) Chloride 98-107 Above high <content [facility] [Moles/volume] in normal styleCode="Bold"> [facility] phs Serum or Plasma Chloride Medical </content>109 Center MEQ/L H<content styleCode="Italic s"> (98-107 MEQ/L)</content> Carbon dioxide, 22-30 <content [facility] total styleCode="Bold"> [facility] [Moles/volume] in Carbon Dioxide Medical Serum or Plasma </content>27 Center MEQ/L<content styleCode="Italic s"> (22-30 MEQ/L)</content> Sodium 137-145 <content [facility] [Moles/volume] in styleCode="Bold"> [facility] phs Serum or Plasma Sodium Medical </content>144 Center MEQ/L<content styleCode="Italic s"> (137-145 MEQ/L)</content> Potassium 3.5-5.3 <content [facility] [Moles/volume] in styleCode="Bold"> [facility] phs Serum or Plasma Potassium Medical </content>4.5 Center MEQ/L<content styleCode="Italic s"> (3.5-5.3 MEQ/L)</content> Calcium 8.4-10. <content [facility] [Mass/volume] in 2 styleCode="Bold"> Cameron hs Serum or Plasma Calcium Medical </content>10.1 Center MG/DL<content styleCode="Italic s"> (8.4-10.2 MG/DL)</content> Creatinine 0.5-1.3 <content [facility] [Mass/volume] in styleCode="Bold"> [facility] hs Serum or Plasma Creatinine Medical </content>0.8 Center MG/DL<content styleCode="Italic s"> (0.5-1.3 MG/DL)</content> Glucose 74-106 Above high <content [facility] [Mass/volume] in normal styleCode="Bold"> Cameron hs Serum or Plasma Glucose Medical </content>109 Center MG/DL H<content styleCode="Italic s"> (74-106 MG/DL)</content> UNK > 60 <content [facility] styleCode="Bold"> Apollo EGFR </content>75 Medical GFR<content Center styleCode="Italic s"> (> 60 GFR)</content> UNK 7-17 Above high <content [facility] normal styleCode="Bold"> [facility] BUN </content>21 Medical MG/DL H<content Center styleCode="Italic s"> (7-17 MG/DL)</content> Bilirubin.total 0.2-1.3 <content [facility] [Mass/volume] in styleCode="Bold"> [facility] hs Serum or Plasma Bilirubin Total Medical </content>0.2 Center MG/DL<content styleCode="Italic s"> (0.2-1.3 MG/DL)</content> Alkaline 38-126 <content [facility] phosphatase styleCode="Bold"> Apollo [Enzymatic Alkaline Medical activity/volume] Phosphatase (ALP) Cente r in Serum or Plasma </content>87 IU/L<content styleCode="Italic s"> (38-126 IU/L)</content> Aspartate 14-36 <content [facility] aminotransferase styleCode="Bold"> [facility] hs [Enzymatic Aspartate Medical activity/volume] Aminotransferase Center in Serum or Plasma (AST) </content>21 IU/L<content styleCode="Italic s"> (14-36 IU/L)</content> Alanine 7-30 <content [facility] aminotransferase styleCode="Bold"> [facility] hs [Enzymatic Alanine Medical activity/volume] Aminotransferase Center in Serum or Plasma (ALT) </content>18 IU/L<content styleCode="Italic s"> (7-30 IU/L)</content> Albumin 3.5-5.0 <content [facility] [Mass/volume] in styleCode="Bold"> Cameron hs Serum or Plasma Albumin Medical </content>4.1 Center G/DL<content styleCode="Italic s"> (3.5-5.0 G/DL)</content> ID Date Data Source Liver 03/31/2019 07:40:00 AM EDT [facility] Profile.[id number] Name Value Range Interpretation Description Data Sup porting Code Source(s) Document(s ) Aspartate 14-36 <content [facility] aminotransferase styleCode="Bold"> [facility] hs [Enzymatic Aspartate Medical activity/volume] Aminotransferase Center in Serum or Plasma (AST) </content>20 IU/L<content styleCode="Italic s"> (14-36 IU/L)</content> Alkaline 38-126 <content [facility] phosphatase styleCode="Bold"> [facility] [Enzymatic Alkaline Medical activity/volume] Phosphatase (ALP) Cente r in Serum or Plasma </content>68 IU/L<content styleCode="Italic s"> (38-126 IU/L)</content> Alanine 7-30 <content [facility] aminotransferase styleCode="Bold"> [facility] hs [Enzymatic Alanine Medical activity/volume] Aminotransferase Center in Serum or Plasma (ALT) </content>17 IU/L<content styleCode="Italic s"> (7-30 IU/L)</content> Bilirubin.total 0.2-1.3 <content [facility] [Mass/volume] in styleCode="Bold"> [facility] hs Serum or Plasma Bilirubin Total Medical </content>0.9 Center MG/DL<content styleCode="Italic s"> (0.2-1.3 MG/DL)</content> Albumin 3.5-5.0 <content [facility] [Mass/volume] in styleCode="Bold"> Cameron hs Serum or Plasma Albumin Medical </content>4.2 Center G/DL<content styleCode="Italic s"> (3.5-5.0 G/DL)</content> ID Date Data Source HematologyRou.[id number] 03/31/2019 07:40:00 AM EDT [facility] 0400 Name Value Range Interpretation Description Data Sup porting Code Source(s) Document(s ) Leukocytes 4.4-11.0 <content [facility] [#/volume] in styleCode="Bold [facility] Blood by ">White Blood Medical Automated count Cell Count Center </content>8.26 KCUMM<content styleCode="Ital ics"> (4.4-11.0 KCUMM)</content > Hemoglobin 12.3-16. Below low normal <content [facility] [Mass/volume] in 0 styleCode="Bold [facility] Blood ">Hemoglobin Medical </content>10.9 Center G/DL L<content styleCode="Ital ics"> (12.3-16.0 G/DL)</content> Hematocrit 36.0-46. Below low normal <content [facility] [Volume 0 styleCode="Bold [facility] Fraction] of ">Hematocrit Medical Blood by </content>33.2 Center Automated count % L<content styleCode="Ital ics"> (36.0-46.0 %)</content> Erythrocytes 4.0-5.1 Below low normal <content [facility] [#/volume] in styleCode="Bold [facility] Blood by ">Red Blood Medical Automated count Cell Count Center </content>3.43 MCUMM L<content styleCode="Ital ics"> (4.0-5.1 MCUMM)</content > Erythrocyte mean 26.0-34. <content [facility] corpuscular 0 styleCode="Bold Apollo hemoglobin ">Mean Medical [Entitic mass] Corposcular Center by Automated Hemoglobin count </content>31.8 PG<content styleCode="Ital ics"> (26.0-34.0 PG)</content> Erythrocyte mean 80.0-100 <content [facility] corpuscular .0 styleCode="Bold [facility] volume [Entitic ">Mean Medical volume] by Corpuscular Center Automated count Volume </content>96.8 FL<content styleCode="Ital ics"> (80.0-100.0 FL)</content> Erythrocyte 11.5-14. Above high <content [facility] distribution 5 normal styleCode="Bold [facility] width [Ratio] by ">Red Cell Medical Automated count Distribution Center Width </content>15.0 % H<content styleCode="Ital ics"> (11.5-14.5 %)</content> Erythrocyte mean 32.0-37. <content [facility] corpuscular 0 styleCode="Bold Apollo hemoglobin ">Mean Corpus. Medical concentration Hgb Center [Mass/volume] by Concentration Automated count (MCHC) </content>32.8 G/DL<content styleCode="Ital ics"> (32.0-37.0 G/DL)</content> Platelet mean 8.0-11.0 <content [facility] volume [Entitic styleCode="Bold Apollo volume] in Blood ">Mean Platelet Medical by Automated Volume Center count </content>8.9 FL<content styleCode="Ital ics"> (8.0-11.0 FL)</content> Neutrophils 36-66 Above high <content [facility] [#/volume] in normal styleCode="Bold [facility] Blood by ">Neutrophil Medical Automated count </content>86.6 Center % H<content styleCode="Ital ics"> (36-66 %)</content> Platelets 130-400 <content [facility] [#/volume] in styleCode="Bold [facility] Blood by ">Platelet Medical Automated count Count Center </content>323 KCUMM<content styleCode="Ital ics"> (130-400 KCUMM)</content > Monocytes 3.0-10.0 <content [facility] [#/volume] in styleCode="Bold [facility] Blood by ">Monocyte Medical Automated count </content>9.0 Center %<content styleCode="Ital ics"> (3.0-10.0 %)</content> UNK 1.0-4.8 Below low normal <content [facility] styleCode="Bold Apollo ">Lymphocyte Medical Count Center </content>0.20 KCUMM L<content styleCode="Ital ics"> (1.0-4.8 KCUMM)</content > UNK 1.6-7.3 <content [facility] styleCode="Bold Apollo ">Neutrophil Medical Count Center </content>7.16 KCUMM<content styleCode="Ital ics"> (1.6-7.3 KCUMM)</content > Lymphocytes 24.0-44. Below low normal <content [facility] [#/volume] in 0 styleCode="Bold Apollo Blood by ">Lymphocyte Medical Automated count </content>2.4 % Center L<content styleCode="Ital ics"> (24.0-44.0 %)</content> UNK 0.0-0.6 <content [facility] styleCode="Bold Apollo ">Eosinophil Medical Count Center </content>0.09 KCUMM<content styleCode="Ital ics"> (0.0-0.6 KCUMM)</content > Eosinophils 0-5.0 <content [facility] [#/volume] in styleCode="Bold [facility] Blood by ">Eosinophil Medical Automated count </content>1.1 Center %<content styleCode="Ital ics"> (0-5.0 %)</content> UNK 0.2-0.9 <content [facility] styleCode="Bold Apollo ">Monocyte Medical Count Center </content>0.74 KCUMM<content styleCode="Ital ics"> (0.2-0.9 KCUMM)</content > Basophils 0.0-1.0 <content [facility] [#/volume] in styleCode="Bold [facility] Blood by ">Basophil Medical Automated count </content>0.5 Center %<content styleCode="Ital ics"> (0.0-1.0 %)</content> UNK 0.0-0.3 <content [facility] styleCode="Bold Apollo ">Basophil Medical Count Center </content>0.04 KCUMM<content styleCode="Ital ics"> (0.0-0.3 KCUMM)</content > UNK 0 <content [facility] styleCode="Bold Apollo ">Nucleated Red Medical Blood Cell Center </content>0.0 /100<content styleCode="Ital ics"> (0 /100)</content> UNK 0.0 <content [facility] styleCode="Bold Apollo ">Nucleated Red Medical Blood Cell Center Count </content>0.00 KCUMM<content styleCode="Ital ics"> (0.0 KCUMM)</content > UNK < 1 <content [facility] styleCode="Bold Apollo ">Immature Medical Granulocyte Center Ratio </content>0.4 %<content styleCode="Ital ics"> (< 1 %)</content> UNK 0-0.1 <content [facility] styleCode="Bold Apollo ">Immature Medical Granulocyte Center Count </content>0.03 KCUMM<content styleCode="Ital ics"> (0-0.1 KCUMM)</content > ID Date Data Source GFR(Creatinine).[id number] 03/31/2019 07:40:[address] [facility] 0-0400 Name Value Range Interpretation Code Description Data Hoa rce(s) Supporting Document(s ) UNK > 60 <content [facility] styleCode="Bold"> Medical Cent er EGFR </content>75 GFR<content styleCode="Italic s"> (> 60 GFR)</content> ID Date Data Source CHMROUTINECCDA.[id number] 03/31/2019 07:40:[address] [facility] -0400 Name Value Range Interpretation Description Data Sup porting Code Source(s) Document(s ) UNK >= 1.0 <content [facility] styleCode="Bold Medical ">AG Ratio Center </content>1.2 <content styleCode="Ital ics"> (>= 1.0 )</content> Protein 6.3-8.2 <content [facility] [Mass/volum styleCode="Bold Medical e] in Serum ">Total Protein Center or Plasma </content>7.6 G/DL<content styleCode="Ital ics"> (6.3-8.2 G/DL)</content> UNK 2.3-3.5 <content [facility] styleCode="Bold Medical ">Globulin Center </content>3.4 G/DL<content styleCode="Ital ics"> (2.3-3.5 G/DL)</content> Lipase 23-300 Above high normal <content [place] [facility] [Enzymatic styleCode="Bold Medical activity/vo ">Lipase Center lume] in </content>507 Serum or IU/L H<content Plasma styleCode="Ital ics"> (23-300 IU/L)</content> ID Date Data Source [employer].[id number] 03/31/2019 07:40:[address] [facility] -0400 Name Value Range Interpretation Description Data Sup porting Code Source(s) Document(s ) Troponin < 0.034 <content [facility] I.cardiac styleCode="Bold [facility] [Mass/volume ">Troponin I Medical ] in Serum </content>< Center or Plasma 0.012 NG/ML<content styleCode="Ital ics"> (< 0.034 NG/ML)</content > ID Date Data Source BMP.[id number] 03/31/2019 07:40:00 AM EDT [facility] Name Value Range Interpretation Description Data Sup porting Code Source(s) Document(s ) Potassium 3.5-5.3 <content [facility] [Moles/volume] in styleCode="Bold"> [facility] phs Serum or Plasma Potassium Medical </content>4.1 Center MEQ/L<content styleCode="Italic s"> (3.5-5.3 MEQ/L)</content> Sodium 137-145 <content [facility] [Moles/volume] in styleCode="Bold"> [facility]itus phs Serum or Plasma Sodium Medical </content>137 Center MEQ/L<content styleCode="Italic s"> (137-145 MEQ/L)</content> Carbon dioxide, 22-30 <content [facility] total styleCode="Bold"> [facility] [Moles/volume] in Carbon Dioxide Medical Serum or Plasma </content>28 Center MEQ/L<content styleCode="Italic s"> (22-30 MEQ/L)</content> Chloride 98-107 <content [facility] [Moles/volume] in styleCode="Bold"> [facility] Serum or Plasma Chloride Medical </content>100 Center MEQ/L<content styleCode="Italic s"> (98-107 MEQ/L)</content> UNK 7-17 <content [facility] styleCode="Bold"> Apollo BUN </content>15 Medical MG/DL<content Center styleCode="Italic s"> (7-17 MG/DL)</content> Creatinine 0.5-1.3 <content [facility] [Mass/volume] in styleCode="Bold"> Cameron hs Serum or Plasma Creatinine Medical </content>0.8 Center MG/DL<content styleCode="Italic s"> (0.5-1.3 MG/DL)</content> Glucose 74-106 <content [facility] [Mass/volume] in styleCode="Bold"> Cameron hs Serum or Plasma Glucose Medical </content>103 Center MG/DL<content styleCode="Italic s"> (74-106 MG/DL)</content> Aspartate 14-36 <content [facility] aminotransferase styleCode="Bold"> [facility] hs [Enzymatic Aspartate Medical activity/volume] Aminotransferase Center in Serum or Plasma (AST) </content>20 IU/L<content styleCode="Italic s"> (14-36 IU/L)</content> Calcium 8.4-10. <content [facility] [Mass/volume] in 2 styleCode="Bold"> Cameron hs Serum or Plasma Calcium Medical </content>9.9 Center MG/DL<content styleCode="Italic s"> (8.4-10.2 MG/DL)</content> UNK > 60 <content [facility] styleCode="Bold"> [facility] EGFR </content>75 Medical GFR<content Center styleCode="Italic s"> (> 60 GFR)</content> Alanine 7-30 <content [facility] aminotransferase styleCode="Bold"> [facility] hs [Enzymatic Alanine Medical activity/volume] Aminotransferase Center in Serum or Plasma (ALT) </content>17 IU/L<content styleCode="Italic s"> (7-30 IU/L)</content> Alkaline 38-126 <content [facility] phosphatase styleCode="Bold"> [facility] [Enzymatic Alkaline Medical activity/volume] Phosphatase (ALP) Cente r in Serum or Plasma </content>68 IU/L<content styleCode="Italic s"> (38-126 IU/L)</content> Bilirubin.total 0.2-1.3 <content [facility] [Mass/volume] in styleCode="Bold"> Cameron hs Serum or Plasma Bilirubin Total Medical </content>0.9 Center MG/DL<content styleCode="Italic s"> (0.2-1.3 MG/DL)</content> Albumin 3.5-5.0 <content [facility] [Mass/volume] in styleCode="Bold"> Cameron hs Serum or Plasma Albumin Medical </content>4.2 Center G/DL<content styleCode="Italic s"> (3.5-5.0 G/DL)</content> ID Date Data Source Urinalysis.[id number] 03/31/2019 07:28:00 AM EDT [facility] 0 Name Value Range Interpretation Description Data Sup porting Code Source(s) Document(s ) Color of Urine YELLOW <content [facility] styleCode="Sandra Bustillos d">[facility] </content>YELL OW <content styleCode="Shi lics"> (YELLOW )</content> UNK CLEAR <content Saint styleCode="Sandra Hurleys d">Urine Medical Clarity Center </content>Sl CLOUDY <content styleCode="Shi lics"> (CLEAR )</content> Glucose NEGATIVE <content Saint [Mass/volume] styleCode="Sandra Bustillos in Urine by d">Urine Medical Test strip Glucose Center </content>NEGA TIVE MG/DL<content styleCode="Shi lics"> (NEGATIVE MG/DL)</conten t> UNK NEGATIVE <content Saint styleCode="Sandra Hurleys d">Urine Medical Bilirubin Center </content>NEGA TIVE <content styleCode="Shi lics"> (NEGATIVE )</content> Ketones NEGATIVE <content Saint [Mass/volume] styleCode="Sandra Hurleys in Urine by d">Urine Medical Test strip Ketone Center </content>NEGA TIVE MG/DL<content styleCode="Shi lics"> (NEGATIVE MG/DL)</conten t> Hemoglobin NEGATIVE <content Saint [Presence] in styleCode="Sandra Bustillos Urine by Test d">Urine Blood Medical strip </content>NEGA Center TIVE <content styleCode="Shi lics"> (NEGATIVE )</content> Specific 1.015-1.02 <content Saint gravity of 5 styleCode="Sandra Bustillos Urine by Test d">Urine Medical strip Specific Center [place] </content>1.01 5 <content styleCode="Shi lics"> (1.015-1.025 )</content> Urobilinogen 0.2-1.0 <content Saint [Units/volume] styleCode="Sandra Bustillos in Urine by d">Urine Medical Test strip Urobilinogen Center </content>0.2 MG/DL<content styleCode="Shi lics"> (0.2-1.0 MG/DL)</conten t> Protein NEGATIVE <content Saint [Mass/volume] styleCode="Sandra Hurleys in Urine by d">Urine Medical Test strip Protein Center </content>NEGA TIVE MG/DL<content styleCode="Shi lics"> (NEGATIVE MG/DL)</conten t> Nitrite NEGATIVE <content Saint [Presence] in styleCode="Sandra Bustillos Urine by Test d">Urine Medical strip Nitrite Center </content>NEGA TIVE <content styleCode="Shi lics"> (NEGATIVE )</content> pH of Urine by 4.5-8.0 <content Saint Test strip styleCode="Sandra Hurleys d">Urine pH Medical </content>7.0 Center <content styleCode="Shi lics"> (4.5-8.0 )</content> UNK 0-3 <content Saint styleCode="Sandra Hurleys d">Urine White Medical Blood Cell Center </content>0-3 HPF<content styleCode="Shi lics"> (0-3 HPF)</content> UNK 0-3 <content Saint styleCode="Sandra Hurleys d">Urine Red Medical Blood Cell Center </content>0-3 HPF<content styleCode="Shi lics"> (0-3 HPF)</content> Leukocyte NEGATIVE <content esterase styleCode="Sandra Bustillos [Presence] in d">Urine Medical Urine by Test Leukocyte Center strip </content>NEGA TIVE <content styleCode="Shi lics"> (NEGATIVE )</content> UNK <content Saint styleCode="Sandra Hurleys d">Epithelial Medical Cell Center </content>5 - 10 LPF (Reference Range: not available)<br/ > ID Date Data Source Liver 04/22/2018 04:43:00 PM EDT [facility] Profile.[id number] Name Value Range Interpretation Description Data Sup porting Code Source(s) Document(s ) Alkaline 38-126 <content phosphatase styleCode="Bold"> Apollo [Enzymatic Alkaline Medical activity/volume] Phosphatase (ALP) Cente r in Serum or Plasma </content>79 IU/L<content styleCode="Italic s"> (38-126 IU/L)</content> Aspartate 14-36 <content aminotransferase styleCode="Bold"> Cameron hs [Enzymatic Aspartate Medical activity/volume] Aminotransferase Center in Serum or Plasma (AST) </content>21 IU/L<content styleCode="Italic s"> (14-36 IU/L)</content> Bilirubin.total 0.2-1.3 <content Saint [Mass/volume] in styleCode="Bold"> Cameron hs Serum or Plasma Bilirubin Total Medical </content>0.8 Center MG/DL<content styleCode="Italic s"> (0.2-1.3 MG/DL)</content> Alanine 7-30 <content Saint aminotransferase styleCode="Bold"> Cameron hs [Enzymatic Alanine Medical activity/volume] Aminotransferase Center in Serum or Plasma (ALT) </content>18 IU/L<content styleCode="Italic s"> (7-30 IU/L)</content> Albumin 3.5-5.0 <content Saint [Mass/volume] in styleCode="Bold"> Cameron hs Serum or Plasma Albumin Medical </content>4.4 Center G/DL<content styleCode="Italic s"> (3.5-5.0 G/DL)</content> ID Date Data Source LIPID.[id number] 04/22/2018 04:43:00 PM EDT [facility] Center Name Value Range Interpretation Description Data Sup porting Code Source(s) Document(s ) Triglyceride < 150 <content Saint [Mass/volume] in styleCode="Sandra Apollo Serum or Plasma d">Triglycerid [facility] Center </content>103 MG/DL<content styleCode="Shi lics"> (< 150 MG/DL)</conten t> UNK > 60 <content Saint styleCode="Sandra Apollo d">HDL- Medical Cholesterol Center </content>68 MG/DL<content styleCode="Shi lics"> (> 60 MG/DL)</conten t> Cholesterol -<200 Above high normal <content Saint [Mass/volume] in styleCode="Sandra Apollo Serum or Plasma d">Cholesterol Medical </content>202 Center MG/DL H<content styleCode="Shi lics"> (-<200 MG/DL)</conten t> UNK < 100 Above high normal <content Saint styleCode="Sandra Apollo d">LDL[facility]olest [facility] </content>113 MG/DL H<content styleCode="Shi lics"> (< 100 MG/DL)</conten t> ID Date Data Source Hormones.[id number] 04/22/2018 04:43:00 PM EDT [facility] t [facility] Name Value Range Interpretation Description Data Sup porting Code Source(s) Document(s ) Thyrotropin 0.465-4. <content Saint [Units/volume] 68 styleCode="Sandra Apollo in Serum or d">Thyroid Medical Plasma by Stimulating Center Detection Hormone limit <= 0.05 </content>0.92 mIU/L 0 MIU/L<content styleCode="Shi lics"> (0.465-4.68 MIU/L)</conten t> ID Date Data Source HematologyRou.[id number] 04/22/2018 04:43:00 PM EDT [facility] nt [facility] 0400 Name Value Range Interpretation Description Data Sup porting Code Source(s) Document(s ) Hemoglobin 12.3-16. Below low normal <content Saint [Mass/volume] in 0 styleCode="Bold Apollo Blood ">Hemoglobin Medical </content>11.4 Center G/DL L<content styleCode="Ital ics"> (12.3-16.0 G/DL)</content> Erythrocytes 4.0-5.1 Below low normal <content Saint [#/volume] in styleCode="Bold Apollo Blood by ">Red Blood Medical Automated count Cell Count Center </content>3.61 MCUMM L<content styleCode="Ital ics"> (4.0-5.1 MCUMM)</content > Leukocytes 4.4-11.0 <content Saint [#/volume] in styleCode="Bold Apollo Blood by ">White Blood Medical Automated count Cell Count Center </content>9.63 KCUMM<content styleCode="Ital ics"> (4.4-11.0 KCUMM)</content > Hematocrit 36.0-46. Below low normal <content Saint [Volume 0 styleCode="Bold Apollo Fraction] of ">Hematocrit Medical Blood by </content>35.3 Center Automated count % L<content styleCode="Ital ics"> (36.0-46.0 %)</content> Erythrocyte mean 26.0-34. <content Saint corpuscular 0 styleCode="Bold Apollo hemoglobin ">Mean Medical [Entitic mass] Corposcular Center by Automated Hemoglobin count </content>31.6 PG<content styleCode="Ital ics"> (26.0-34.0 PG)</content> Erythrocyte 11.5-14. Above high <content Saint distribution 5 normal styleCode="Bold Apollo width [Ratio] by ">Red Cell Medical Automated count Distribution Center Width </content>14.6 % H<content styleCode="Ital ics"> (11.5-14.5 %)</content> Erythrocyte mean 80.0-100 <content Saint corpuscular .0 styleCode="Bold Apollo volume [Entitic ">Mean Medical volume] by Corpuscular Center Automated count Volume </content>97.8 FL<content styleCode="Ital ics"> (80.0-100.0 FL)</content> Erythrocyte mean 32.0-37. <content Saint corpuscular 0 styleCode="Bold Apollo hemoglobin ">Mean Corpus. Medical concentration Hgb Center [Mass/volume] by Concentration Automated count (MCHC) </content>32.3 G/DL<content styleCode="Ital ics"> (32.0-37.0 G/DL)</content> UNK 0 <content Saint styleCode="Bold Apollo ">Nucleated Red Medical Blood Cell Center </content>0.0 /100<content styleCode="Ital ics"> (0 /100)</content> UNK 0.0 <content Saint styleCode="Bold Apollo ">Nucleated Red Medical Blood Cell Center Count </content>0.00 KCUMM<content styleCode="Ital ics"> (0.0 KCUMM)</content > Platelet mean 8.0-11.0 <content Saint volume [Entitic styleCode="Bold Apollo volume] in Blood ">Mean Platelet Medical by Automated Volume Center count </content>10.4 FL<content styleCode="Ital ics"> (8.0-11.0 FL)</content> Platelets 130-400 <content Saint [#/volume] in styleCode="Teodoro [facility] Blood by ">Platelet Medical Automated count Count Center </content>342 KCUMM<content styleCode="Ital ics"> (130-400 KCUMM)</content > ID Date Data Source GFR(Creatinine).[id number] 04/22/2018 04:43:[address] [facility] 0-0400 Name Value Range Interpretation Code Description Data Hoa rce(s) Supporting Document(s ) UNK > 60 <content [facility] styleCode="Bold"> Medical Cent er EGFR </content>75 GFR<content styleCode="Italic s"> (> 60 GFR)</content> ID Date Data Source CHMROUTINECCDA.[id number] 04/22/2018 04:43:[address] [facility] -0400 Name Value Range Interpretation Description Data Sup porting Code Source(s) Document(s ) UNK 2.3-3.5 Above high normal <content Saint styleCode="Sandra Apollo d">Globulin Medical </content>3.6 Center G/DL H<content styleCode="Shi lics"> (2.3-3.5 G/DL)</content > UNK 4.2-5.8 Above high normal <content Saint styleCode="Sandra Apollo d">Hemoglobin Medical A1C Center </content>6.1 % H<content styleCode="Shi lics"> (4.2-5.8 %)</content> UNK >= 1.0 <content Saint styleCode="Sandra Apollo d">AG Ratio Medical </content>1.2 Center NM<content styleCode="Shi lics"> (>= 1.0 NM)</content> UNK Not <content Saint Established styleCode="Sandra Apollo d">Microalbumi Medical n Center </content>0.5 mg/dL<content styleCode="Shi lics"> (Not Established mg/dL)</conten t> Protein 6.3-8.2 <content Saint [Mass/volu styleCode="Sandra Apollo me] in d">Total Medical Serum or Protein Center Plasma </content>8.0 G/DL<content styleCode="Shi lics"> (6.3-8.2 G/DL)</content > ID Date Data Source [facility].[id number] 04/22/2018 04:43:00 PM EDT [facility] Name Value Range Interpretation Description Data Sup porting Code Source(s) Document(s ) Sodium 137-145 <content Saint [Moles/volume] in styleCode="Bold"> [facility] Serum or Plasma Sodium Medical </content>143 Center MEQ/L<content styleCode="Italic s"> (137-145 MEQ/L)</content> Carbon dioxide, 22-30 <content Saint total styleCode="Bold"> Apollo [Moles/volume] in Carbon Dioxide Medical Serum or Plasma </content>29 Center MEQ/L<content styleCode="Italic s"> (22-30 MEQ/L)</content> Chloride 98-107 <content Saint [Moles/volume] in styleCode="Bold"> [facility] Serum or Plasma Chloride Medical </content>102 Center MEQ/L<content styleCode="Italic s"> (98-107 MEQ/L)</content> Potassium 3.5-5.3 <content Saint [Moles/volume] in styleCode="Bold"> [facility] Serum or Plasma Potassium Medical </content>3.9 Center MEQ/L<content styleCode="Italic s"> (3.5-5.3 MEQ/L)</content> UNK 7-17 Above high <content Saint normal styleCode="Bold"> Apollo BUN </content>21 Medical MG/DL H<content Center styleCode="Italic s"> (7-17 MG/DL)</content> Aspartate 14-36 <content Saint aminotransferase styleCode="Bold"> Cameron hs [Enzymatic Aspartate Medical activity/volume] Aminotransferase Center in Serum or Plasma (AST) </content>21 IU/L<content styleCode="Italic s"> (14-36 IU/L)</content> Creatinine 0.5-1.3 <content Saint [Mass/volume] in styleCode="Bold"> Cameron hs Serum or Plasma Creatinine Medical </content>0.8 Center MG/DL<content styleCode="Italic s"> (0.5-1.3 MG/DL)</content> Glucose 74-106 <content Saint [Mass/volume] in styleCode="Bold"> Cameron hs Serum or Plasma Glucose Medical </content>93 Center MG/DL<content styleCode="Italic s"> (74-106 MG/DL)</content> Calcium 8.4-10. <content Saint [Mass/volume] in 2 styleCode="Bold"> Cameron hs Serum or Plasma Calcium Medical </content>10.1 Center MG/DL<content styleCode="Italic s"> (8.4-10.2 MG/DL)</content> UNK > 60 <content Saint styleCode="Bold"> Apollo EGFR </content>75 Medical GFR<content Center styleCode="Italic s"> (> 60 GFR)</content> Albumin 3.5-5.0 <content Saint [Mass/volume] in styleCode="Bold"> Cameron hs Serum or Plasma Albumin Medical </content>4.4 Center G/DL<content styleCode="Italic s"> (3.5-5.0 G/DL)</content> Alanine 7-30 <content Saint aminotransferase styleCode="Bold"> Cameron hs [Enzymatic Alanine Medical activity/volume] Aminotransferase Center in Serum or Plasma (ALT) </content>18 IU/L<content styleCode="Italic s"> (7-30 IU/L)</content> Bilirubin.total 0.2-1.3 <content Saint [Mass/volume] in styleCode="Bold"> Cameron hs Serum or Plasma Bilirubin Total Medical </content>0.8 Center MG/DL<content styleCode="Italic s"> (0.2-1.3 MG/DL)</content> Alkaline 38-126 <content Saint phosphatase styleCode="Bold"> Apollo [Enzymatic Alkaline Medical activity/volume] Phosphatase (ALP) Cente r in Serum or Plasma </content>79 IU/L<content styleCode="Italic s"> (38-126 IU/L)</content> Procedure Social History Code Duration Value Status Description Data Source(s ) Smoking 07/13/2020 denies completed denies smoking MEDGEN (St 12:00:00 AM EDT smoking denies illicit [facility], denies drugs denies ) illicit drugs etoh denies etoh Smoking 07/13/2020 Unknown if completed Unknown if ever MEDGEN (S t 12:00:00 AM EDT ever smoked smoked [facility], ) Caffeine Use 06/07/2020 completed soda, <1 cup NEXTGEN (S aint Details 12:00:00 AM EDT [facility]) Smoking 06/07/2020 Unknown if completed Unknown if ever NEXTGEN ( Saint 12:00:00 AM EDT ever smoked smoked [facility]) 05/24/2020 Ex-cigarette completed Ex-cigarette NEXTGEN (S aint 12:00:00 AM EDT smoker smoker [facility]) Smoking 04/26/2020 Never Smoker completed Never Smoker eCW1 (Joellen t 12:00:00 AM EDT [facility]) Smoking 04/26/2020 Never Smoker completed Never Smoker eCW1 (Joellen t 12:00:00 AM EDT [facility]) Smoking 04/26/2020 Never Smoker completed Never Smoker eCW1 (Joellen t 12:00:00 AM EDT [facility]) Smoking 01/29/2020 Denies Ever completed Denies Ever [place] [facility] 09:52:00 AM EDT Smoked Smoked Medical C enter Smoking 01/29/2020 Denies Ever completed Denies Ever [place] [facility] 09:45:00 AM EDT Smoked Smoked Medical C enter Smoking 01/29/2020 Denies Ever completed Denies Ever [place] [facility] 09:44:00 AM EDT Smoked Smoked Medical C enter Smoking 01/29/2020 Denies Ever completed Denies Ever [place] [facility] 09:30:00 AM EDT Smoked Smoked Medical C enter Smoking 12/23/2019 Denies Ever completed Denies Ever [place] [facility] 11:30:00 AM EST Smoked Smoked Medical C enter Smoking 12/23/2019 Denies Ever completed Denies Ever [place] [facility] 11:25:00 AM EST Smoked Smoked Medical C enter Smoking 12/23/2019 Denies Ever completed Denies Ever [facility] 10:40:00 AM EST Smoked Smoked Medical C enter Smoking 12/15/2019 Denies Ever completed Denies Ever [facility] X[facility] goncalves 10:20:00 AM EST Smoked Smoked Medical C enter Smoking 12/15/2019 Denies Ever completed Denies Ever [facility] Xavi goncalves 09:15:00 AM EST Smoked Smoked Medical C enter Smoking 12/15/2019 Denies Ever completed Denies Ever [facility] Xavi goncalves 08:47:00 AM EST Smoked Smoked Medical C enter Smoking 03/31/2019 Denies Ever completed Denies Ever [facility] Xavi goncalves 07:12:00 AM EDT Smoked Smoked Medical C enter Smoking 03/31/2019 Denies Ever completed Denies Ever [facility] Hurley s 06:43:00 AM EDT Smoked Smoked Medical C enter Smoking 03/31/2019 Denies Ever completed Denies Ever [facility] Xavi goncalves 06:38:00 AM EDT Smoked Smoked Medical C enter Smoking Unknown if completed Unknown if ever [facility] [place] [facility] ever smoked smoked Medical Cente r Alcohol Use completed NEXTGEN ([facility]) Never Smoker completed Never Smoker eCW1 ([facility]) Never Smoker completed Never Smoker eCW1 ([facility]) Never Smoker completed Never Smoker eCW1 ([facility]) Vital Signs ID Date Data Source UNK Name Value Range Interpretation Code Description Data Source(s) Oxygen saturation 96 % 96 % NEXTGEN ([facility] in Arterial blood [facility] by Pulse oximetry Center) Body mass index 30.91 kg/m2 Overweight 30.91 kg/m2 [facility] ([facility] (BMI) [Ratio] [facility]) Respiratory rate 17 /min 17 /min [facility] ([facility]) Body temperature 36.17 Sue 36.17 Sue [facility] ([facility]) Heart rate 89 /min 89 /min [facility] ([facility]) Diastolic blood 77 mm[Hg] 77 mm[Hg] NEXTGEN ( [facility] pressure [facility]) Systolic blood 130 mm[Hg] 130 mm[Hg] NEXTGEN (S aint pressure [facility]) Body weight 87.543 kg 87.543 kg [facility] ([facility]) Body height 168.28 cm 168.28 cm [facility] ([facility]) Diastolic blood 73 mm[Hg] 73 mm[Hg] eCW1 ([facility]) Systolic blood 125 mm[Hg] 125 mm[Hg] eCW1 ([facility] t [facility]) Oxygen saturation 96 % 96 % eCW1 (S aint in Arterial blood [facility] by Pulse oximetry [facility]) Body temperature 98.2 [degF] 98.2 [degF] eCW1 ( [facility]) Respiratory rate 18 /min 18 /min [facility]CW[facility] ([facility]) Heart rate 83 /min 83 /min eCW1 ([facility]) Body mass index 33.47 kg/m2 33.47 kg/m2 eCW1 (S aint (BMI) [Ratio] [facility]) Body weight 195 [lb_av] 195 [lb_av] eCW1 ([facility]) Body height 64 [in_i] 64 [in_i] eCW1 ([facility]) Oxygen saturation 98 % 98 % NEXTGEN ([facility] in Arterial blood [facility] by Pulse oximetry Center) Body mass index 31.39 kg/m2 Overweight 31.39 kg/m2 [facility]EXT[facility] ([facility] (BMI) [Ratio] [facility]) Respiratory rate 20 /min 20 /min [facility] ([facility]) Body temperature 36.94 Sue 36.94 Sue [facility] ([facility]) Heart rate 78 /min 78 /min [facility] ([facility]) Diastolic blood 71 mm[Hg] 71 mm[Hg] [facility]EXTGEN ( [facility]) Systolic blood 118 mm[Hg] 118 mm[Hg] NEXTGEN (S aint pressure [facility]) Body weight 88.904 kg 88.904 kg NEXTGEN ([facility]) Body height 168.28 cm 168.28 cm [facility] ([facility]) Oxygen saturation 97 % 97 % NEXTGEN ([facility] in Arterial blood [facility] by Pulse oximetry Center) Body mass index 30.60 kg/m2 Overweight 30.60 kg/m2 [facility] ([facility] (BMI) [Ratio] [facility]) Respiratory rate 20 /min 20 /min [facility] ([facility]) Body temperature 36.72 Sue 36.72 Sue [facility] ([facility]) Heart rate 91 /min 91 /min [facility] ([facility]) Diastolic blood 57 mm[Hg] 57 mm[Hg] [facility] ( [facility]) Systolic blood 101 mm[Hg] 101 mm[Hg] [facility] ([facility]) Body weight 88.632 kg 88.632 kg [facility] ([facility]) Body height 170.18 cm 170.18 cm [facility] ([facility]) Body temperature 37.194680 37.019556 Sue [facility] Respiratory rate 18 /min 18 /min [facility] Oxygen saturation 98 % 98 % [facility] J [facility]sephs in [facility] by Pulse oximetry Heart rate 99 /min 99 /min [facility] Diastolic blood 62 mm[Hg] 62 mm[Hg] [facility] Systolic blood 134 mm[Hg] 134 mm[Hg] [facility] Body weight 75.297169 kg 75.574623 kg [facility] Body temperature 37.582758 37.759906 Sue [facility] Respiratory rate 19 /min 19 /min [facility] Oxygen saturation 97 % 97 % [facility] J osephs in [facility] by Pulse oximetry Heart rate 90 /min 90 /min [facility] Body height 162.312866 162.544773 cm [facility] Diastolic blood 62 mm[Hg] 62 mm[Hg] [facility] Systolic blood 150 mm[Hg] 150 mm[Hg] [facility] Body mass index 28.3 kg/m2 28.3 kg/m2 [facility] (BMI) [Ratio] Medical [facility] Diastolic blood 100 mm[Hg] 100 mm[Hg] [facility] ( [facility]) Systolic blood 163 mm[Hg] 163 mm[Hg] NEXTGEN ([facility] pressure [facility]) Oxygen saturation 98 % 98 % NEXTGEN ([facility] in Arterial [facility] by Pulse oximetry Center) Body mass index 30.54 kg/m2 Overweight 30.54 kg/m2 [facility]EXT[facility] ([facility] (BMI) [Ratio] [facility]) Respiratory rate 20 /min 20 /min [facility] ([facility]) Body temperature 36.67 Sue 36.67 Sue [facility] ([facility]) Heart rate 98 /min 98 /min [facility] ([facility]) Diastolic blood 106 mm[Hg] 106 mm[Hg] NEXTGEN ( [facility]) Systolic blood 157 mm[Hg] 157 mm[Hg] [facility] ([facility]) Body weight 88.451 kg 88.451 kg [facility] ([facility]) Body height 170.18 cm 170.18 cm [facility] ([facility]) Heart rate 103 /min 103 /min [facility] ([facility]) Oxygen saturation 96 % 96 % NEXTGEN ([facility] Arterial [facility] by Pulse oximetry Center) Body mass index 30.79 kg/m2 Overweight 30.79 kg/m2 NEXTGEN ([facility] (BMI) [Ratio] [facility]) Respiratory rate 20 /min 20 /min [facility] ([facility]) Body temperature 36.89 Sue 36.89 Sue [facility] ([facility]) Heart rate 105 /min 105 /min [facility] ([facility]) Diastolic blood 82 mm[Hg] 82 mm[Hg] NEXTGEN ( [facility]) Systolic blood 123 mm[Hg] 123 mm[Hg] [facility] ([facility]) Body weight 89.176 kg 89.176 kg [facility] ([facility]) Body height 170.18 cm 170.18 cm [facility] ([facility]) Respiratory rate 20 /min 20 /min [facility] ([facility]) Body temperature 37.00 Sue 37.00 Sue [facility] ([facility]) Heart rate 120 /min 120 /min [facility] ([facility]) Diastolic blood 100 mm[Hg] 100 mm[Hg] [facility] ( [facility] pressure [facility]) Systolic blood 154 mm[Hg] 154 mm[Hg] NEXTGEN (S aint pressure [facility]) Body height 170.18 cm 170.18 cm [facility] (Joellen t [facility]) Body temperature 35.942889 35.815011 Sue [facility] Respiratory rate 19 /min 19 /min [facility] Heart rate 108 /min 108 /min [facility] Diastolic blood 103 mm[Hg] 103 mm[Hg] [facility] Systolic blood 171 mm[Hg] 171 mm[Hg] [facility] Body weight 92.458819 kg 92.709564 kg [facility] Body temperature 36.432808 36.774885 Sue [facility] Respiratory rate 19 /min 19 /min [facility] Oxygen saturation 100 % 100 % [facility] in Arterial blood [facility] by Pulse oximetry Heart rate 101 /min 101 /min [facility] Body height 165.718406 165.944996 cm [facility] Diastolic blood 97 mm[Hg] 97 mm[Hg] [facility] Systolic blood 155 mm[Hg] 155 mm[Hg] [facility] Body mass index 33.7 kg/m2 33.7 kg/m2 [facility] (BMI) [Ratio] Medical [facility] [place] [facility] Oxygen saturation 96 % 96 % [facility] ([facility] in Arterial blood [facility] by Pulse oximetry Center) Body mass index 31.79 kg/m2 Overweight 31.79 kg/m2 [facility] ([facility] (BMI) [Ratio] [facility]) Respiratory rate 17 /min 17 /min [facility] ([facility]) Body temperature 36.50 Sue 36.50 Sue [facility] ([facility]) Heart rate 85 /min 85 /min [facility] ([facility]) Diastolic blood 84 mm[Hg] 84 mm[Hg] [facility] ( [facility] pressure [facility]) Systolic blood 137 mm[Hg] 137 mm[Hg] [facility] (S aint pressure [facility]) Body weight 92.079 kg 92.079 kg [facility] (Joellen t [facility]) Body height 170.18 cm 170.18 cm [facility] ([facility]) Body temperature 36.970274 36.554943 [facility] Respiratory rate 17 /min 17 /min [facility] Oxygen saturation 99 % 99 % [facility] Ar[facility] by Pulse oximetry Heart rate 78 /min 78 /min [facility] Diastolic blood 89 mm[Hg] 89 mm[Hg] [facility] Systolic blood 158 mm[Hg] 158 mm[Hg] [facility] Body temperature 37.426249 37.370683 [facility] Respiratory rate 17 /min 17 /min [facility] Oxygen saturation 100 % 100 % [facility] by Pulse oximetry Heart rate 80 /min 80 /min [facility] Diastolic blood 104 mm[Hg] 104 mm[Hg] [facility] Systolic blood 184 mm[Hg] 184 mm[Hg] [facility] Body weight 91.050770 kg 91.987564 kg [facility] Body temperature 36.426953 36.427879 [facility] Respiratory rate 18 /min 18 /min [facility] Oxygen saturation 99 % 99 % [facility] by Pulse oximetry Heart rate 88 /min 88 /min [facility] Body height 170.524267 170.151102 cm [facility] Diastolic blood 101 mm[Hg] 101 mm[Hg] [facility] Systolic blood 187 mm[Hg] 187 mm[Hg] [facility] Body mass index 31.4 kg/m2 31.4 kg/m2 [facility] (BMI) [Ratio] Medical [facility] [place] [facility] Oxygen saturation 95 % 95 % [facility] ([facility] in Arterial blood [facility] by Pulse oximetry Center) Body mass index 31.54 kg/m2 Overweight 31.54 kg/m2 [facility] ([facility] (BMI) [Ratio] [facility]) Respiratory rate 20 /min 20 /min [facility] ([facility]) Body temperature 36.83 Sue 36.83 Sue [facility] ([facility]) Heart rate 86 /min 86 /min [facility] ([facility]) Diastolic blood 83 mm[Hg] 83 mm[Hg] [facility] ( [facility] pressure [facility]) Systolic blood 124 mm[Hg] 124 mm[Hg] [facility] (S aint [facility]) Body weight 91.354 kg 91.354 kg [facility] ([facility]) Body height 170.18 cm 170.18 cm [facility] ([facility]) Oxygen saturation 98 % 98 % [facility] ([facility] in Arterial blood [facility] by Pulse oximetry Center) Body mass index 31.47 kg/m2 Overweight 31.47 kg/m2 [facility] ([facility] (BMI) [Ratio] [facility]) Respiratory rate 20 /min 20 /min [facility] ([facility]) Body temperature 36.67 Sue 36.67 Sue [facility] ([facility]) Heart rate 98 /min 98 /min [facility] ([facility]) Diastolic blood 66 mm[Hg] 66 mm[Hg] [facility] ( [facility] Systolic blood 114 mm[Hg] 114 mm[Hg] [facility] (S aint [facility]) Body weight 91.127 kg 91.127 kg [facility] ([facility]) Body height 170.18 cm 170.18 cm [facility] ([facility]) Body surface area 2.08 m2 2.08 m2 [facility] ([facility] Derived from [facility]) Body mass index 31.67 kg/m2 Overweight 31.67 kg/m2 [facility] ([facility] (BMI) [Ratio] [facility]) Respiratory rate 18 /min 18 /min [facility] ([facility]) Body temperature 36.72 Sue 36.72 Sue [facility] ([facility]) Heart rate 94 /min 94 /min [facility] ([facility]) Diastolic blood 85 mm[Hg] 85 mm[Hg] [facility] ( [facility]) Systolic blood 148 mm[Hg] 148 mm[Hg] [facility] (S [facility] pressure [facility]) Body weight 91.716 kg 91.716 kg [facility] ([facility]) Body height 170.18 cm 170.18 cm [facility] ([facility]) Oxygen saturation 100 % 100 % [facility] ([facility] in Arterial blood [facility] by Pulse oximetry Center) Body mass index 31.23 kg/m2 Overweight 31.23 kg/m2 [facility] ([facility] (BMI) [Ratio] [facility]) Respiratory rate 20 /min 20 /min [facility] ([facility]) Body temperature 36.61 Sue 36.61 Sue [facility] ([facility]) Heart rate 74 /min 74 /min [facility] ([facility]) Diastolic blood 78 mm[Hg] 78 mm[Hg] [facility] ( [facility]) Systolic blood 129 mm[Hg] 129 mm[Hg] [facility] ([facility]) Body weight 90.446 kg 90.446 kg [facility] ([facility]) Body height 170.18 cm 170.18 cm [facility] ([facility]) Oxygen saturation 100 % 100 % [facility] ([facility] in Arterial blood [facility] by Pulse oximetry Center) Body mass index 30.23 kg/m2 Overweight 30.23 kg/m2 [facility] ([facility] (BMI) [Ratio] [facility]) Respiratory rate 19 /min 19 /min [facility] ([facility]) Body temperature 37.17 Sue 37.17 Sue [facility] ([facility]) Heart rate 80 /min 80 /min [facility] ([facility]) Diastolic blood 77 mm[Hg] 77 mm[Hg] [facility] ( [facility]) Systolic blood 136 mm[Hg] 136 mm[Hg] [facility] (S [facility]) Body weight 87.543 kg 87.543 kg [facility] ([facility]) Body height 170.18 cm 170.18 cm [facility] ([facility]) Oxygen saturation 98 % 98 % [facility] ([facility] in Arterial blood [facility] by Pulse oximetry Center) Body mass index 30.54 kg/m2 Overweight 30.54 kg/m2 [facility] ([facility] (BMI) [Ratio] [facility]) Respiratory rate 18 /min 18 /min [facility] ([facility]) Body temperature 36.78 Sue 36.78 Sue [facility] ([facility]) Heart rate 88 /min 88 /min [facility] ([facility]) Diastolic blood 79 mm[Hg] 79 mm[Hg] [facility] ( [facility]) Systolic blood 132 mm[Hg] 132 mm[Hg] [facility] (S [facility]) Body weight 88.451 kg 88.451 kg [facility] ([facility]) Body height 170.18 cm 170.18 cm [facility] ([facility]) Oxygen saturation 95 % 95 % [facility] ([facility] in Arterial blood [facility] by Pulse oximetry Center) Body mass index 30.07 kg/m2 Overweight 30.07 kg/m2 [facility] ([facility] (BMI) [Ratio] [facility]) Respiratory rate 19 /min 19 /min [facility] ([facility]) Body temperature 36.67 Sue 36.67 Sue [facility] ([facility]) Heart rate 73 /min 73 /min [facility] ([facility]) Diastolic blood 79 mm[Hg] 79 mm[Hg] [facility] ( [facility]) Systolic blood 127 mm[Hg] 127 mm[Hg] [facility] (S nt [facility]) Body weight 87.090 kg 87.090 kg [facility] ([facility]) Body height 170.18 cm 170.18 cm [facility] ([facility]) Oxygen saturation 99 % 99 % [facility] ([facility] in Arterial [facility] by Pulse oximetry Center) Body mass index 29.91 kg/m2 Overweight 29.91 kg/m2 [facility] ([facility] (BMI) [Ratio] [facility]) Respiratory rate 17 /min 17 /min [facility] ([facility]) Body temperature 36.17 Sue 36.17 Sue [facility] ([facility]) Heart rate 66 /min 66 /min [facility] ([facility]) Diastolic blood 82 mm[Hg] 82 mm[Hg] [facility] ( [facility]) Systolic blood 136 mm[Hg] 136 mm[Hg] [facility] (S [facility]) Body weight 86.636 kg 86.636 kg [facility] ([facility]) Body height 170.18 cm 170.18 cm [facility] ([facility]) Oxygen saturation 98 % 98 % [facility] ([facility] in Arterial [facility] by Pulse oximetry Center) Body mass index 29.91 kg/m2 Overweight 29.91 kg/m2 [facility] ([facility] (BMI) [Ratio] [facility]) Respiratory rate 19 /min 19 /min [facility] ([facility]) Body temperature 36.67 Sue 36.67 Sue [facility] ([facility]) Heart rate 72 /min 72 /min [facility] ([facility]) Diastolic blood 84 mm[Hg] 84 mm[Hg] [facility] ( [facility]) Systolic blood 143 mm[Hg] 143 mm[Hg] [facility] (S nt [facility]) Body weight 86.636 kg 86.636 kg [facility] ([facility]) Body height 170.18 cm 170.18 cm [facility] ([facility]) Oxygen saturation 97 % 97 % [facility] ([facility] in Arterial [facility] by Pulse oximetry Center) Body mass index 29.76 kg/m2 Overweight 29.76 kg/m2 [facility] ([facility] (BMI) [Ratio] [facility]) Respiratory rate 18 /min 18 /min [facility] ([facility]) Body temperature 36.61 Sue 36.61 Sue [facility] ([facility]) Heart rate 66 /min 66 /min [facility] ([facility]) Diastolic blood 76 mm[Hg] 76 mm[Hg] [facility] ( [facility]) Systolic blood 126 mm[Hg] 126 mm[Hg] [facility] (S nt pressure [facility]) Body weight 86.183 kg 86.183 kg [facility] ([facility]) Body height 170.18 cm 170.18 cm [facility] ([facility]) Oxygen saturation 96 % 96 % [facility] ([facility] in Arterial blood [facility] by Pulse oximetry Center) Body mass index 29.54 kg/m2 Overweight 29.54 kg/m2 [facility] ([facility] (BMI) [Ratio] [facility]) Respiratory rate 18 /min 18 /min [facility] ([facility]) Body temperature 36.61 Sue 36.61 Sue [facility] ([facility]) Heart rate 96 /min 96 /min [facility] ([facility]) Diastolic blood 73 mm[Hg] 73 mm[Hg] [facility] ( [facility] pressure [facility]) Systolic blood 128 mm[Hg] 128 mm[Hg] [facility] (S [facility] pressure [facility]) Body weight 85.548 kg 85.548 kg [facility] ([facility]) Body height 170.18 cm 170.18 cm [facility] ([facility]) Body temperature 36.401703 36.282284 Sue [facility] Respiratory rate 18 /min 18 /min [facility] Oxygen saturation 100 % 100 % [facility] J [facility] in [facility] blood [facility] by Pulse oximetry Heart rate 99 /min 99 /min [facility] Diastolic blood 88 mm[Hg] 88 mm[Hg] [facility] Systolic blood 174 mm[Hg] 174 mm[Hg] [facility] Body temperature 36.918284 36.067456 Sue [facility] Respiratory rate 20 /min 20 /min [facility] Oxygen saturation 100 % 100 % [facility] J [facility]ph[facility] in [facility] by Pulse oximetry Heart rate 106 /min 106 /min [facility] Diastolic blood 75 mm[Hg] 75 mm[Hg] [facility] Systolic blood 129 mm[Hg] 129 mm[Hg] [facility] Oxygen saturation 95 % 95 % [facility] ([facility] in Arterial blood [facility] by Pulse oximetry Center) Body mass index 29.60 kg/m2 Overweight 29.60 kg/m2 [facility] ([facility] (BMI) [Ratio] [facility]) Respiratory rate 18 /min 18 /min [facility] ([facility]) Body temperature 36.17 Sue 36.17 Sue [facility] ([facility]) Heart rate 77 /min 77 /min [facility] ([facility]) Diastolic blood 77 mm[Hg] 77 mm[Hg] [facility] ( [facility]) Systolic blood 127 mm[Hg] 127 mm[Hg] [facility] ([facility]) Body weight 85.729 kg 85.729 kg [facility] ([facility]) Body height 170.18 cm 170.18 cm [facility] ([facility]) Oxygen saturation 99 % 99 % [facility] ([facility] in Arterial blood [facility] by Pulse oximetry Center) Body mass index 29.76 kg/m2 Overweight 29.76 kg/m2 [facility] ([facility] (BMI) [Ratio] [facility]) Respiratory rate 18 /min 18 /min [facility] ([facility]) Body temperature 37.00 Sue 37.00 Sue [facility] ([facility]) Heart rate 84 /min 84 /min [facility] ([facility]) Diastolic blood 64 mm[Hg] 64 mm[Hg] [facility] ( [facility]) Systolic blood 103 mm[Hg] 103 mm[Hg] [facility] ([facility]) Body weight 86.183 kg 86.183 kg [facility] ([facility]) Body height 170.18 cm 170.18 cm [facility] ([facility]) Oxygen saturation 98 % 98 % [facility] ([facility] in Arterial blood [facility] by Pulse oximetry Center) Body mass index 29.95 kg/m2 29.95 kg/m2 [facility] ([facility] (BMI) [Ratio] [facility]) Respiratory rate 20 /min 20 /min [facility] ([facility]) Body temperature 36.22 Sue 36.22 Sue [facility] ([facility]) Heart rate 70 /min 70 /min [facility] ([facility]) Diastolic blood 75 mm[Hg] 75 mm[Hg] [facility] ( [facility] pressure [facility]) Systolic blood 129 mm[Hg] 129 mm[Hg] [facility] (S aint pressure [facility]) Body weight 86.727 kg 86.727 kg [facility] ([facility]) Body height 170.18 cm 170.18 [facility] Patient Treatment Plan of Care Planned Activity Planned Date Details Description Data Source (s) atorvastatin 20 MG Oral 06/29/2020 [facility] ([facility] 12[facility] [facility]) Meclizine Hydrochloride 25 MG 05/24/2020 [facility] ([facility] Oral Tablet 12:00:[address] [facility]) Atenolol 100 MG / 05/03/2020 eCW1 (Joellen t [facility] Chlorthalidone [facility] Atenolol 50 MG / 04/26/2020 eCW[facility] Chlorthalidone 25 MG [facility] 12:[facility] Atenolol 50 MG / 04/26/2020 eCW1 ([place] Chlorthalidone 25 MG Oral 12:[facility] Losartan Potassium 100 MG 04/20/2020 NE XTGEN ([facility] Oral Tablet 12:00:[address] [facility]) Hydrochlorothiazide 25 MG 04/20/2020 NE XTGEN ([facility] Oral Tablet 12:00:[address] [facility]) atorvastatin 20 MG Oral 04/19/2020 NEXT [facility] ([facility] 12:[facility]:[address] [facility]) azelastine 137 mcg (0.1 %) 03/02/2020 N EXTGEN ([facility] nasal spray aerosol 12:00:00 AM [facility]) atorvastatin 20 MG Oral 02/05/2020 NEXT [facility] ([facility]t 12:[facility]:[address] [facility]) Diclofenac Sodium 0.01 MG/MG 01/29/2020 [facility] ([facility] Topical Gel 12:00:[address] [facility]) cetirizine hydrochloride 5 MG 01/28/2020 [facility] ([facility] Oral Tablet 12:00:[address] [facility]) Diclofenac Sodium 50 MG 01/28/2020 NEXT [facility] ([facility] Delayed Release Oral Tablet 12:00:00 AM [facility]) azelastine 137 mcg (0.1 %) 01/28/2020 N EXTGEN ([facility] nasal spray aerosol 12:00:00 AM [facility]) sennosides, ALF 8.6 MG Oral 01/27/2020 [facility] ([facility] Tablet 12:00:[address] [facility]) Lactulose 83.3 MG/ML Oral 01/27/2020 NE XTGEN ([facility] Solution 12:00:[address] [facility]) Diclofenac Sodium 50 MG 01/27/2020 NEXT GEN ([facility] Delayed Release Oral Tablet 12:00:00 AM [facility]) Hydrochlorothiazide 25 MG 01/06/2020 NE XTGEN ([facility] Oral Tablet 12:00:[address] [facility]) Losartan Potassium 100 MG 01/06/2020 NE XTGEN ([facility] Oral Tablet 12:00:[address] [facility]) Diclofenac Sodium 0.01 MG/MG 01/01/2020 [facility] ([facility] Topical Gel [Voltaren] 12:00:00 AM [facility]) 8 HR Acetaminophen 650 MG 01/01/2020 NE XTGEN ([facility] Extended Release Oral Tablet 12:00:00 AM [facility] [Tylenol] [place]) Menthol 160 MG/ML Topical 01/01/2020 NE XTGEN ([facility] Solution 12:00:[address] [facility]) Capsaicin 0.75 MG/ML Topical 12/16/2019 NEXT[facility] ([facility] Cream 12:00:[address] [facility]) Cyclobenzaprine hydrochloride 12/16/2019 NEXT[facility] ([facility] 10 MG Oral Tablet 12:00:00 AM [facility]) Naproxen 500 MG Oral Tablet 12/16/2019 NEXT[facility] ([facility] 12:00:[address] [facility]) Naproxen 500 MG Oral Tablet 12/06/2019 NEXT[facility] ([facility] 12:00:[address] [facility]) atorvastatin 20 MG Oral 11/25/2019 NEXT GEN ([facility] Tablet 12:00:[address] [facility]) Bisacodyl 5 MG Delayed 11/18/2019 NEXTG EN ([facility] Release Oral Tablet 12:00:00 AM [facility] [Correctol laxative Center) Reformulated Nov 2007] Hydrochlorothiazide 25 MG / 09/11/2019 NEXTGEN ([facility] Losartan Potassium 100 MG 12:00:00 AM [facility] Oral Tablet [place]) atorvastatin 20 MG Oral 09/11/2019 NEXT GEN ([facility]t 12:00:[address] [facility]) Hydrochlorothiazide 25 MG / 07/01/2019 NEXT[facility] ([facility] Losartan Potassium 100 MG 12:00:00 AM [facility] Oral Tablet [place]) atorvastatin 20 MG Oral 07/01/2019 NEXT GEN ([facility]t 12:[facility]:[address] [facility]) Meclizine Hydrochloride 25 MG 06/23/2019 [facility] ([facility] Oral Tablet 12:00:[address] [facility]) Metronidazole 500 MG Oral 06/10/2019 NE XTGEN ([facility]t 12:[facility]:[address] [facility]) Ciprofloxacin 500 MG Oral 06/10/2019 NE XTGEN ([facility] 12:[facility]:[address] [facility]) Hydrochlorothiazide 25 MG / 06/10/2019 NEXT[facility] ([facility] Losartan Potassium 100 MG 12:00:00 AM [facility] Oral Tablet [place]) Ibuprofen 200 MG Oral Tablet 06/04/2019 NEXT[facility] ([facility] 12:[facility]:[address] [facility]) atorvastatin 20 MG Oral 04/16/2019 NEXT GEN ([facility] Tablet 12:00:[address] [facility]) Hydrochlorothiazide 25 MG / 04/16/2019 NEXT[facility] ([facility] Losartan Potassium 100 MG 12:00:00 AM [facility] Oral Tablet [place]) Acetaminophen 500 MG Oral 01/22/2019 NE XTGEN ([facility] Capsule [Mapap] 12:00:00 AM [facility]) Loratadine 10 MG Oral Capsule 01/22/2019 NEXTGEN ([facility] 12:[facility]:[address] [facility]) fluticasone 50 mcg/actuation 01/22/2019 NEXTGEN ([facility] nasal spray,suspension 12:00:[address] [facility]) Methocarbamol 750 MG Oral 11/26/2018 NE XTGEN ([facility] Tablet [Robaxin] 12:00:00 AM [facility]) Probiotic 15 billion cell 11/26/2018 NE XTGEN ([facility] capsule 12:00:[address] [facility]) Aspirin 81 MG Chewable Tablet 11/26/2018 NEXTGEN ([facility] 12:00:[address] [facility]) Hydrochlorothiazide 25 MG / 11/26/2018 NEXT[facility] ([facility] Losartan Potassium 100 MG 12:00:00 AM [facility] Oral Tablet [place]) atorvastatin 20 MG Oral 11/26/2018 NEXT GEN ([facility] Tablet 12:00:[address] [facility]) Acetaminophen 500 MG Oral 11/26/2018 NE XTGEN ([facility] Capsule [Mapap] 12:00:00 AM [facility]) Acetaminophen 500 MG Oral 10/30/2018 NE XTGEN ([facility] Capsule [Mapap] 12:00:00 AM [facility]) Probiotic 15 billion cell 07/09/2018 NE XTGEN ([facility] capsule 12:00:[address] [facility]) Methocarbamol 750 MG Oral 04/22/2018 NE XTGEN ([facility] Tablet [Robaxin] 12:00:00 AM [facility]) Diclofenac Sodium 50 MG 03/11/2018 NEXT GEN ([facility] Delayed Release Oral Tablet 12:00:00 AM [facility]) Aspirin 81 MG Chewable Tablet 02/25/2018 NEXTGEN ([facility] 12:00:[address] [facility]) Hydrochlorothiazide 25 MG / 02/25/2018 N[facility] ([facility] Losartan Potassium 100 MG 12:00:00 AM [facility] Oral Tablet [place]) atorvastatin 20 MG Oral 02/25/2018 NEXT GEN ([facility] Tablet 12:00:[address] [facility]) Atenolol 100 MG / NEXTGEN ([facility] Chlorthalidone 25 MG Oral [facility]) naproxen sodium 375 mg [facility] Tablet, ER Multiphase 24 hr [facility] Center naproxen sodium 375 mg [place] Tablet, ER Multiphase 24 Med [facility] hrDirections: 1 tablet oral twice a day nitrofurantoin [facility] monohyd/m-cryst 100 mg [facility] Capsule pramipexole 0.25 mg Tablet [facility] meclizine 25 mg Tablet [facility] losartan 50 mg Tablet [facility] losartan 100 mg Tablet [facility] losartan-hydrochlorothiazide [place] 100 mg-25 mg Tablet [facility] [place] hydrochlorothiazide 25 mg [facility] naproxen 500 mg Tablet [facility] cyclobenzaprine 10 mg Tablet [facility] chlorzoxazone [address] [facility] osep TabletDirections: 1 tablet M [facility] oral twice a day bisacodyl 5 mg tablet,delayed [facility] release (DR/EC) Medical Cent er atorvastatin 20 mg Tablet [facility] methylPREDNISolone 4 mg [facility] tablets,dose pack, Ordered [facility] By: Lukas Reynolds, MDDirections: one row of tabs oral dizziness Ketorolac Tromethamine 10 MG [facility] Oral Tablet [facility] gabapentin 300 MG Oral [facility] naproxen 500 mg Tablet [facility] nitrofurantoin [facility] monohyd/m-cryst 100 mg [facility] Capsule losartan 100 mg Tablet [facility] losartan-hydrochlorothiazide [facility] 100 mg-25 mg Tablet [facility] metroNIDAZOLE 500 mg [facility] osep TabletDirections: 1 tablet M [facility] oral twice a day meclizine 25 mg Tablet [facility] losartan 50 mg Tablet [facility] pramipexole 0.25 mg Tablet [facility] ciprofloxacin HCl 500 mg [facility] TabletDirections: 1 tablet [facility] oral twice a day bisacodyl 5 mg tablet,delayed [facility] release (DR/EC) [facility] losartan-hydrochlorothiazide [place] 100 mg-25 mg Tablet [facility] hydrochlorothiazide 25 mg [facility] atorvastatin 20 mg Tablet [facility] 24 HR Naproxen 375 MG [facility] Extended Release Oral Tablet [facility] Chlorzoxazone 250 MG Oral [facility] atorvastatin 20 mg Tablet [facility] aspirin 81 mg tablet,chewable [facility] losartan-hydrochlorothiazide [place] 100 mg-25 mg Tablet [facility] Metronidazole 500 MG Oral [facility] Ciprofloxacin 500 MG Oral [facility]
--- NOTE | 2020-07-23 11:27 | HP ---
Admitting History and Physical - Admission Chief Complaint: Lef low back and leg pain History of Present Illness: pt complains of left low back and leg pain. - Smoking History Smoking history: Never smoked Have you smoked in the past 12 months: No If you are a former smoker, when did you quit?: 53 yrs ago - Alcohol/Substance Use Hx Alcohol Use: No Home Medications - Allergies Allergies/Adverse Reactions: Allergies Allergy/AdvReac Type Severity Reaction Status Date / Time No Known Allergies Allergy Verified 12/26/19 08:30 - Home Medications Home Medications: Ambulatory Orders Atorvastatin Ca [Lipitor] 20 mg PO HS 12/26/19 Gabapentin [Neurontin -] 300 mg PO QID #120 capsule 12/30/19 Atenolol/Chlorthalidone [Atenolol-Chlorthalidone 100-25] 1 each PO DAILY 07/23/20 Meclizine HCl 25 mg PO DAILY 07/23/20 Review of Systems - Review of Systems Constitutional: reports: No Symptoms Eyes: reports: No Symptoms HENT: reports: No Symptoms Neck: reports: No Symptoms Cardiovascular: reports: No Symptoms Respiratory: reports: No Symptoms Gastrointestinal: reports: No Symptoms Genitourinary: reports: No Symptoms Breasts: reports: No Symptoms Reported Musculoskeletal: reports: Back Pain Neurological: reports: Parasthesia Endocrine: reports: No Symptoms Hematology/Lymphatic: reports: No Symptoms Physical Examination Vital Signs: Vital Signs Temperature 98.0 F 07/23/20 10:27 Pulse Rate 54 L 07/23/20 10:27 Respiratory Rate 20 07/23/20 10:27 Blood Pressure 122/52 L 07/23/20 10:27 O2 Sat by Pulse Oximetry (%) 98 07/23/20 10:27 Imaging - Results MRI: Report Reviewed, Image Reviewed Assessment/Plan The patients pain is secondary to lumbar radiculopathy. 1. I will perform Left L4 and L5 TFESI.
[2020-07-23] MEDS ORDERED: DEXAMETHASONE SOD PHOSPHATE 10 MG/1 ML VIAL IVPUSH ONE (11:59)
[2020-07-23] MEDS ORDERED: LIDOCAINE HCL 1% PRESERVATIVE FREE - 30ML VIAL IJ ONE (12:00)
[2020-07-23] MEDS ORDERED: IOHEXOL 180 MG/1 ML ML IJ ONE (12:00)
[2020-07-23 16:57] VITALS: BP 136/76; PULSE 60; TEMP 97
--- NOTE | 2020-07-26 22:31 | PROC ---
Procedure Note Procedure: Pre procedure Diagnosis: Lumbar Radiculopathy Post Procedure Diagnosis: same Anesthesia: Local Procedure Performed: Left L4 and L5 Transforaminal Epidural Steroid Injection After the risks and benefits were explained, informed consent was obtained. The patient was then taken to the procedure room and positioned prone on the procedure table. Time out was performed. The region overlying the Left L4 and L5 neural foramens were identified using fluoroscopy. The skin was prepped and draped in the usual sterile fashion. The skin and soft tissues were anesthetized using 1% lidocaine. The neural foramens were identified with the fluoroscopic beam directed in a right oblique direction. 2 22 gauge 3.5 inch spinal needles were then introduced into the appropriate neural foramens using intermittent fluoroscopic guidance using AP, oblique and lateral views as indicated. Needle placement was then confirmed with the injection of Omnipaque 180. Epidural flow was noted and the nerve root was outlined. No vascular uptake was noted. Next, a mixture 1.5 cc of dexamethasone and Normal saline followed by 0.5 cc of 1% lidocaine was then injected around the Left L4 and L5 spinal nerves. The patient tolerated the procedure well and there were no complications. The patient was taken to the post procedure recovery area in good condition. Vital signs remained stable before, during, and after the procedure. The patient was given oral and written follow-up instructions. The patient was given a follow up appointment with me in the near future. Jese Wright DO
== END 2020-07-23 13:10 | disposition home or self-care (01) ==
LOC: JASU-SURG 05:27
PROVIDERS: ATTEND Pain Medicine Pain Medicine
PROC: 3E0R33Z Introduction of Anti-inflammatory into Spinal Canal, Percutaneous Approach (ICD-10-PCS; 2020-07-23)
PROC: 3E0R3BZ Introduction of Anesthetic Agent into Spinal Canal, Percutaneous Approach (ICD-10-PCS; principal; 2020-07-23 12:15)
DX: M54.16 Radiculopathy, lumbar region (principal); M54.5 Low back pain
CPT/HCPCS: 76000-TC-FY; J1100

== ENCOUNTER 2021-05-20 04:38 | Day surgery (SDC) | payer OTHER ==
[2021-05-19 15:11] VITALS: BMI 31.9
[2021-05-20] MEDS ORDERED: LIDOCAINE HCL/PF 1% SDV 5ML VIAL ONE ×3 (07:26→07:45)
[2021-05-20] MEDS ORDERED: BUPIVACAINE HCL/PF 0.5% (5MG/ML) 10 ML VIAL ONE ×2 (07:27→11:12)
[2021-05-20] MEDS ORDERED: TRIAMCINOLONE ACET 40MG/1ML VIAL ONE (11:15)
[2021-05-20] MEDS ORDERED: BUPIVACAINE HCL/PF 0.5% (5 MG/ML) 30 ML VIAL IJ ONE ×2 (11:32→11:39)
[2021-05-20] MEDS ORDERED: IOHEXOL 180 MG/1 ML ML IJ ONE (11:32)
[2021-05-20 14:18] VITALS: BP 131/82; PULSE 61; TEMP 97.4
== END 2021-05-20 12:20 | disposition home or self-care (01) ==
LOC: JASU-SURG 04:38
PROVIDERS: ATTEND Pain Medicine Pain Medicine
PROC: 3E0T33Z Introduction of Anti-inflammatory into Peripheral Nerves and Plexi, Percutaneous Approach (ICD-10-PCS; 2021-05-20)
PROC: 3E0T3BZ Introduction of Anesthetic Agent into Peripheral Nerves and Plexi, Percutaneous Approach (ICD-10-PCS; principal; 2021-05-20 10:45)
DX: M47.812 Spondylosis without myelopathy or radiculopathy, cervical region (principal)
CPT/HCPCS: 76000-TC-FY

== ENCOUNTER 2021-09-05 05:50 | Inpatient (IN) | payer OTHER ==
[2021-09-05] MEDS ORDERED: MIDAZOLAM HCL 2 MG/2 ML SINGLE DOSE VIAL ONE (07:13)
[2021-09-05] MEDS ORDERED: BUPIVACAINE HCL/PF 0.5% (5 MG/ML) 30 ML VIAL IJ ONE (07:13)
[2021-09-05] MEDS ORDERED: BUPIVACAINE LIPOSOME/PF (EXPAREL) 266 MG/20 ML VIAL ONE (07:13)
[2021-09-05] MEDS ORDERED: MAG HYDROX/AL HYDROX/SIMETH 30 ML UNIT-DOSE CUP PO PRN (07:18)
[2021-09-05] MEDS ORDERED: ONDANSETRON 4 MG/2 ML VIAL IVPUSH PRN ×2 (07:18→10:50)
[2021-09-05] MEDS ORDERED: MAGNESIUM HYDROX 2400MG/30ML ORAL SUSPENSION 30 ML CUP PO PRN (07:18)
[2021-09-05] MEDS ORDERED: VANCOMYCIN 1,000 MG VIAL (RESTRICTED TO ID ONLY) ONE ×2 (07:19→08:27)
[2021-09-05] MEDS ORDERED: TRANEXAMIC ACID 1000 MG/10 ML VIAL ONE ×3 (07:20→09:50)
[2021-09-05 07:23] VITALS: BMI 30.7
[2021-09-05] MEDS ORDERED: LACTATED RINGERS SOLUTION 1,000 ML IV SCH (07:30)
[2021-09-05] MEDS ORDERED: PROPOFOL 20 ML ONE ×2 (08:08)
[2021-09-05] MEDS ORDERED: SUCCINYLCHOLINE CHLORIDE 200 MG/10 ML SYRINGE ONE (08:08)
[2021-09-05] MEDS ORDERED: ROCURONIUM BROMIDE 50 MG/5 ML SYRINGE ONE (08:08)
[2021-09-05] MEDS ORDERED: ceFAZolin SODIUM 1 GM VIAL ONE ×3 (08:27→23:43)
[2021-09-05] MEDS ORDERED: KETOROLAC TROMETHAMINE 30 MG/1 ML VIAL ONE (08:27)
[2021-09-05] MEDS ORDERED: DEXAMETHASONE SOD PHOSPHATE 4 MG/1 ML VIAL ONE (08:27)
[2021-09-05] MEDS ORDERED: LIDOCAINE HCL 2% JELLY (5 ML/TUBE) ONE (08:28)
[2021-09-05] MEDS ORDERED: PHENYLEPHRINE HCL 10 MG/1 ML SINGLE DOSE VIAL ONE (09:10)
[2021-09-05] MEDS ORDERED: NEOSTIGMINE METHYLSULFATE 0.5 MG/ML - 10 ML MDV ONE (09:59)
[2021-09-05] MEDS ORDERED: ACETAMINOPHEN INJECTION 100 ML IVPB ONE (10:45)
[2021-09-05] MEDS ORDERED: ACETAMINOPHEN 1000 MG/100 ML VIAL IVPB ONE (10:50)
[2021-09-05] MEDS ORDERED: oxyCODONE HCL 5 MG TABLET PO PRN (10:50)
[2021-09-05] MEDS ORDERED: PROMETHAZINE HCL 25 MG/1 ML VIAL IVPUSH PRN (10:50)
[2021-09-05] MEDS ORDERED: ACETAMINOPHEN 1000 MG/100 ML VIAL IVPB SCH (13:00)
[2021-09-05] MEDS ORDERED: DEXTROSE 5%-WATER - 50 ML IVPB ONE ×2 (15:17→23:44)
[2021-09-05] MEDS: CEFAZOLIN 2 GM in DEXTROSE 5%-WATER - 50 ML IVPB SCH (15:22)
[2021-09-05] MEDS: MULTIVITAMINS (DAILY MVI) TABLET (FP) PO SCH (15:22)
[2021-09-05] MEDS: GABAPENTIN 300 MG CAPSULE PO SCH ×2 (15:23→21:26)
[2021-09-05] MEDS: PANTOPRAZOLE 40 MG TABLET PO SCH (15:23)
[2021-09-05] MEDS ORDERED: CEFAZOLIN 2 GM/D5W 50 ML IVPB SCH (16:17)
[2021-09-05] MEDS: ACETAMINOPHEN 1000 MG/100 ML VIAL IVPB SCH ×2 (17:15→23:48)
[2021-09-05] MEDS ORDERED: ACETAMINOPHEN 500 MG TABLET (FP) PO SCH (18:00)
[2021-09-05] MEDS ORDERED: VANCOMYCIN 1 GM in D5W (PRE-DOCKED) 1,000 MG/250 ML IVPB ONE (20:17)
[2021-09-05] MEDS: SENNOSIDES/DOCUSATE COMBO (SENNA PLUS) TABLET (UD) PO SCH (21:26)
[2021-09-06] MEDS: CEFAZOLIN 2 GM in DEXTROSE 5%-WATER - 50 ML IVPB SCH ×2 (00:29→10:03)
[2021-09-06] MEDS: ACETAMINOPHEN 1000 MG/100 ML VIAL IVPB SCH ×2 (06:03→12:15)
[2021-09-06 08:08] LABS: HEMATOCRIT 27.9 % (32.4-45.2); HEMOGLOBIN 8.6 GM/dl (10.7-15.3); MCH 31.2 pg (25.7-33.7); MEAN CELL VOLUME 100.6 fl (80-96); MEAN PLT VOLUME 7.5 fl (7.5-11.1); PLATELET COUNT 319 10^3/uL (134-434); RBC 2.77 M/mm3 (3.60-5.2); RDW 14.3 % (11.6-15.6); WHITE BLOOD COUNT 12.8 K/mm3 (4.0-10.8)
[2021-09-06 08:43] LABS: CALCIUM 8.2 mg/dl (8.5-10)
[2021-09-06] MEDS ORDERED: PATIENT'S OWN MEDICATION (NON-FORMULARY) (Atenolol/Chlorthalidone [Atenolol-Chlorthalidone PO SCH (10:00)
[2021-09-06] MEDS: POTASSIUM CHLORIDE TABS 20 MEQ TABLET.ER (FP) PO SCH ×3 (10:00→21:18)
[2021-09-06] MEDS: CHLORTHALIDONE 25 MG TABLET PO SCH (10:01)
[2021-09-06] MEDS: ASPIRIN 325 MG ENTERIC COATED TABLET (FP) PO SCH (10:01)
[2021-09-06] MEDS: GABAPENTIN 300 MG CAPSULE PO SCH ×2 (10:01→21:18)
[2021-09-06] MEDS: SENNOSIDES/DOCUSATE COMBO (SENNA PLUS) TABLET (UD) PO SCH ×2 (10:02→21:18)
[2021-09-06] MEDS: ATENOLOL 50 MG TABLET (FP) PO SCH (10:02)
[2021-09-06] MEDS: MULTIVITAMINS (DAILY MVI) TABLET (FP) PO SCH (10:02)
[2021-09-06] MEDS: PANTOPRAZOLE 40 MG TABLET PO SCH (10:02)
[2021-09-06] MEDS ORDERED: CEFAZOLIN 2 GM in DEXTROSE 5%-WATER - 50 ML IVPB SCH (10:15)
[2021-09-06] MEDS: ATORVASTATIN CA 20 MG TABLET (FP) PO SCH (21:18)
[2021-09-06] MEDS: oxyCODONE HCL 5 MG TABLET PO PRN (21:18)
[2021-09-07] MEDS: oxyCODONE HCL 5 MG TABLET PO PRN (05:40)
[2021-09-07] MEDS ORDERED: ACETAMINOPHEN 325 MG TABLET (FP) PO SCH (08:00)
[2021-09-07] MEDS: ACETAMINOPHEN 500 MG TABLET (FP) PO SCH ×3 (08:22→21:25)
[2021-09-07] MEDS: oxyCODONE HCL 10 MG SUSTAINED ACTING TABLET PO SCH ×2 (08:23→20:23)
[2021-09-07 08:34] LABS: HEMATOCRIT 27.7 % (32.4-45.2); MCH 32.5 pg (25.7-33.7); MCHC 32.5 g/dl (32.0-36.0); MEAN PLT VOLUME 7.6 fl (7.5-11.1); PLATELET COUNT 328 10^3/uL (134-434); RBC 2.77 M/mm3 (3.60-5.2); RDW 14.4 % (11.6-15.6); WHITE BLOOD COUNT 12.5 K/mm3 (4.0-10.8)
[2021-09-07 08:48] LABS: ALBUMIN 2.8 g/dl (3.4-5.0); BILIRUBIN,TOTAL 0.6 mg/dl (0.2-1); CREATININE 0.7 mg/dl (0.55-1.3); MAGNESIUM 1.5 mg/dL (1.8-2.4); TOT PROT 5.6 g/dl (6.4-8.2)
[2021-09-07] MEDS: GABAPENTIN 300 MG CAPSULE PO SCH ×2 (09:44→21:26)
[2021-09-07] MEDS: ASPIRIN 325 MG ENTERIC COATED TABLET (FP) PO SCH (09:44)
[2021-09-07] MEDS: PANTOPRAZOLE 40 MG TABLET PO SCH (09:44)
[2021-09-07] MEDS: MULTIVITAMINS (DAILY MVI) TABLET (FP) PO SCH (09:44)
[2021-09-07] MEDS: CHLORTHALIDONE 25 MG TABLET PO SCH (09:45)
[2021-09-07] MEDS: SENNOSIDES/DOCUSATE COMBO (SENNA PLUS) TABLET (UD) PO SCH ×2 (09:46→21:26)
[2021-09-07] MEDS: ATENOLOL 50 MG TABLET (FP) PO SCH (09:46)
[2021-09-07] MEDS ORDERED: MAGNESIUM OXIDE 400 MG TABLET (FP) PO ONE (13:15)
[2021-09-07] MEDS: ATORVASTATIN CA 20 MG TABLET (FP) PO SCH (21:26)
[2021-09-08] MEDS: ACETAMINOPHEN 500 MG TABLET (FP) PO SCH ×2 (06:37→10:22)
[2021-09-08 06:40] VITALS: BP 118/64; PULSE 76; TEMP 98
[2021-09-08] MEDS: SENNOSIDES/DOCUSATE COMBO (SENNA PLUS) TABLET (UD) PO SCH (10:21)
[2021-09-08] MEDS: CHLORTHALIDONE 25 MG TABLET PO SCH (10:21)
[2021-09-08] MEDS: ATENOLOL 50 MG TABLET (FP) PO SCH (10:21)
[2021-09-08] MEDS: ASPIRIN 325 MG ENTERIC COATED TABLET (FP) PO SCH (10:21)
[2021-09-08] MEDS: PANTOPRAZOLE 40 MG TABLET PO SCH (10:22)
[2021-09-08] MEDS: oxyCODONE HCL 10 MG SUSTAINED ACTING TABLET PO SCH (10:22)
[2021-09-08] MEDS: MULTIVITAMINS (DAILY MVI) TABLET (FP) PO SCH (10:22)
== END 2021-09-08 12:20 | disposition home or self-care (01) | DRG 483 ==
LOC: FM/S 05:50
PROVIDERS: ADMIT Orthopaedic Surgery; ATTEND Nurse Practitioner Acute Care
PROC: 0LS30ZZ Reposition Right Upper Arm Tendon, Open Approach (ICD-10-PCS; 2021-09-05)
PROC: 0RRJ00Z Replacement of Right Shoulder Joint with Reverse Ball and Socket Synthetic Substitute, Open Approach (ICD-10-PCS; principal; 2021-09-05 08:41)
DX: M19.011 Primary osteoarthritis, right shoulder (principal); M75.20 Bicipital tendinitis, unspecified shoulder; I10 Essential (primary) hypertension; E78.5 Hyperlipidemia, unspecified; I25.10 Atherosclerotic heart disease of native coronary artery without angina pectoris
CPT/HCPCS: 36415; 73030-TC-RT-FY; 80048; 80053; 83735; 85027; 88304-TC; 88311-TC; 94010; 94760; 97010-GP; 97116-GP; 97162-GP; J0131

== ENCOUNTER 2023-07-31 03:58 | Day surgery (SDC) | payer OTHER ==
[2023-07-30 13:07] VITALS: BMI 26.2
[2023-07-31] MEDS ORDERED: DEXAMETHASONE SOD PHOSPHATE 10 MG/1 ML VIAL ONE (07:23)
[2023-07-31] MEDS ORDERED: LIDOCAINE HCL/PF 1% SDV 5ML VIAL ONE (07:23)
[2023-07-31] MEDS ORDERED: LIDOCAINE HCL 1%, 10 MG/ML (50 mL VIAL) NR ONE (11:21)
[2023-07-31] MEDS ORDERED: DEXAMETHASONE SOD PHOSPHATE 10 MG/1 ML VIAL IM ONE (11:21)
[2023-07-31] MEDS ORDERED: IOHEXOL 180 MG/1 ML ML IJ ONE (11:22)
[2023-07-31 12:01] VITALS: BP 133/69; PULSE 67; RESP 17; TEMP 98
[2023-07-31] MEDS ORDERED: ACETAMINOPHEN 500 MG TABLET (FP) PO PRN (12:06)
== END 2023-07-31 12:00 | disposition home or self-care (01) ==
LOC: JASU-SURG 03:58
PROVIDERS: ATTEND Pain Medicine Pain Medicine
PROC: 3E0R3BZ Introduction of Anesthetic Agent into Spinal Canal, Percutaneous Approach (ICD-10-PCS; 2023-07-31)
PROC: 3E0R33Z Introduction of Anti-inflammatory into Spinal Canal, Percutaneous Approach (ICD-10-PCS; principal; 2023-07-31 10:30)
DX: M48.061 Spinal stenosis, lumbar region without neurogenic claudication (principal); M54.16 Radiculopathy, lumbar region
CPT/HCPCS: 76000-TC-FY; J1100